=== PATIENT | female | born 1955 | race Caucasian/White ===

== ENCOUNTER 2022-06-15 11:03 | Outpatient (CLI) | payer MEDICARE, BC, SELFPAY ==
--- OUTSIDE RECORDS SUMMARY | 2022-06-15 11:05 | XMS_ITS | Encounter Summary ---
:1955 Author Organization [place] Address [address] [facility] [place] [address] Care Team Providers Name Role Phone Jennifer Reid NP Unavailable Jennifer Reid NP Primary Care Provider Encounter Details Date Type Department Care Team Description 02/16/2022 Travel Social History Tobacco Use Types Packs/Day Years Used Date Smoking Tobacco: Never Smokeless Tobacco: Never Alcohol Use Standard Drinks/Week Comments Yes 0 (1 standard drink = 0.6 oz pure alcoho l) Sex Assigned at Date Recorded Female 11/25/2020 4:39 PM CDT COVID-19 Exposure Response Date Recorded In the last 10 days, have you been in contact with No / Unsu re 02/16/2022 9:50 AM CDT someone who was confirmed or suspected to have Coronavirus/COVID-19? documented as of this encounter Plan of Treatment Not on filedocumented as of this encounter Visit Diagnoses Not on filedocumented in this encounter Care Teams Incoming Inspector Relationship Specialty Start Date End Date Jennifer Reid NP PCP - General 02/11/22 [address] [place] [address] Jennifer Reid NP Assigned PCP 02/18/21 [address] [place] [address] documented as of this encounter
--- OUTSIDE RECORDS SUMMARY | 2022-06-15 11:05 | XMS_ITS | Encounter Summary ---
:1955 Author Organization [place] Address [address] [facility] [place] [address] Care Team Providers Name Role Phone Jennifer Reid NP Unavailable Encounter Details Date Type Department Care Team Description [facility] Provider, Histor ical Social History Tobacco Use Types Packs/Day Years Used Date Smoking Tobacco: Never Smokeless Tobacco: Never Alcohol Use Standard Drinks/Week Comments Yes 0 (1 standard drink = 0.6 oz pure alcoho l) Sex Assigned at Date Recorded Female 11/25/2020 4:39 PM CDT documented as of this encounter Plan of Treatment Not on filedocumented as of this encounter Procedures Procedure Name Priority Date/Time Associated Diagnosis Comme nts MA SCREENING Routine 11/07/2009 12:00 AM Results for this BILATERAL GAS STATION CASHIER procedure are i n the results section. documented in this encounter Results MA Screening Bilateral (11/07/2009 12:00 AM GAS STATION CASHIER) Anatomical Region Laterality Modality Breast Bilateral Other Specimen (Source) Anatomical Location Collection Method / Collectio n Time Received Time / Laterality Volume Narrative 11/07/2009 12:00 AM GAS STATION CASHIER See Historical Hospital Medical Record f or documentation Procedure Note Provider, Historical - 03/25/2021Formatt ing of this note might be different from the original. See Historical Hospital Medical Record f or documentation Historical Provider IMG MAMMOGRAPHY ORDERABLES documented in this encounter Visit Diagnoses Not on filedocumented in this encounter Care Teams Sterilization Specialist Relationship Specialty Start Date End Date Jennifer Reid NP Assigned PCP 02/18/21 [address] [place] [address] documented as of this encounter
--- OUTSIDE RECORDS SUMMARY | 2022-06-15 11:05 | XMS_ITS | Encounter Summary ---
:1955 Author Organization [place] Address [address] [place] [address] Care Team Providers Name Role Phone Unavailable Primary Care Provider Unavailable Encounter Details Date Type Department Care Team Description 02/02/2021 Records - [facility] FERNIE CONVERSION Provider, Histor ical Social History Tobacco Use Types Packs/Day Years Used Date Smoking Tobacco: Never Assessed Sex Assigned at Date Recorded Female 11/25/2020 4:39 PM CDT documented as of this encounter Plan of Treatment Not on filedocumented as of this encounter Procedures Procedure Name Priority Date/Time Associated Comments Diagnosis US PELVIC Routine 03/13/2008 12:00 Results for this TRANSABDOMINAL AM CDT procedure are in the results section. US TRANSVAGINAL PELVIC Routine 03/13/2008 12:00 R esults for this NON-OB AM CDT procedure are i n the results section. documented in this encounter Results US Pelvis Complete without Transvaginal (03/13/2008 12:00 AM CDT) Anatomical Region Laterality Modality Abdomen/Pelvis Other Specimen (Source) Anatomical Location Collection Method / Collectio n Time Received Time / Laterality Volume Narrative 03/13/2008 12:00 AM CDT See Historical Hospital Medical Record f or documentation Procedure Note Provider, Historical - 02/02/2021Formatt ing of this note might be different from the original. See Historical Hospital Medical Record f or documentation Historical Provider IMG US ORDERABLES US Transvaginal Non OB (03/13/2008 12:00 AM CDT) Anatomical Region Laterality Modality Abdomen/Pelvis Other Specimen (Source) Anatomical Location Collection Method / Collectio n Time Received Time / Laterality Volume Narrative 03/13/2008 12:00 AM CDT See Historical Hospital Medical Record f or documentation Procedure Note Provider, Historical - 02/02/2021Formatt ing of this note might be different from the original. See Historical Hospital Medical Record f or documentation Historical Provider IMG US ORDERABLES documented in this encounter Visit Diagnoses Not on filedocumented in this encounter
--- OUTSIDE RECORDS SUMMARY | 2022-06-15 11:05 | XMS_ITS | Clinical Summary ---
:1955 Author Organization [place] Address [facility] [place] [address] Care Team Providers Name Role Phone Jennifer Reid NP Unavailable Jennifer Reid NP Primary Care Provider Allergies Active Allergy Reactions Severity Noted Date Comments Allergy Relief Itching 12/13/2020 Medications Medication Sig Dispensed Refills Start Date End Date Status multivitamin [MULTIVITAMIN 0 10/13/2014 Ac tive (MULTIVITAMIN) per (MULTIVITAMIN) tablet PER TABLET] 1 tablet daily. aspirin 81 MG EC tablet [ASPIRIN 81 MG EC 0 07/07/20 15 Active TABLET] Take 81 mg by mouth daily. alendronate (FOSAMAX) [ALENDRONATE 12 tablet 3 02/07/2020 Active 70 MG (FOSAMAX) 70 MG tabletIndications: TABLET] TAKE 1 Osteopenia with high TABLET BY MOUTH risk of fracture EVERY 7 DAYS. TAKE IN THE MORNING ON AN EMPTY STOMACH WITH A FULL GLASS OF WATER, 30 MINUTES BEFORE FOOD Active Problems Problem Noted Date Osteopenia with high risk of fracture 01/23/2021 Postmenopausal status 11/15/2018 Atypical melanocytic hyperplasia 07/07/2016 Vitamin D Deficiency Overview: Created by Conversion Replacement Utility updated for latest I MO load Essential Hypercholesterolemia Overview: Created by Conversion Allergic Rhinitis Overview: Created by Conversion Replacement Utility updated for latest I MO load Immunizations Name Administration Dates Next Due COVID-19,PF,Pfizer (12+ Yrs) 12/24/2020, 12/03/2020 DT (PEDS <7y) 02/28/1996 Flu, Unspecified 06/19/2020, 06/02/2016, 05/21/2010 HepA, Unspecified 02/21/2008 HepA-Adult 11/15/2018, 07/06/2016, 02/21/2008 HepB-Adult 11/15/2018 Influenza (IIV3) PF 07/07/2010 Influenza Vaccine, 6+MO IM (QUADRIVALENT 07/10/2019, 018 W/PRESERVATIVES) Pneumo Conj 13-V (2010&after) 07/06/2016 Td,adult,historic,unspecified 02/21/2008 Tdap (Adacel,Boostrix) 11/15/2018, 02/21/2008 Typhoid IM 11/15/2018 Zoster vaccine recombinant adjuvanted 01/23/2021, 11/15/2018 (SHINGRIX) Zoster vaccine, live 07/06/2016 Family History Medical History Relation Comments Asthma Father Prostate Cancer Father Coronary Artery Disease Maternal Grandfather Coronary Artery Disease Maternal Grandmother Arthritis Mother Diabetes Mother Coronary Artery Disease Paternal Grandfather Colon Cancer Paternal Grandmother Relation Status Comments Father Maternal Grandfather Maternal Grandmother Mother Alive Paternal Grandfather Paternal Grandmother Social History Tobacco Use Types Packs/Day Years Used Date Smoking Tobacco: Never Smokeless Tobacco: Never Alcohol Use Standard Drinks/Week Comments Yes 0 (1 standard drink = 0.6 oz pure alcoho l) Sex Assigned at Date Recorded Female 11/25/2020 4:39 PM CDT Last Filed Vital Signs Vital Sign Reading Time Taken Comments Blood Pressure 110/66 01/23/2021 11:11 AM CDT Pulse 64 01/23/2021 11:11 AM CDT Temperature 36.8 ??C (98.2 ??F) 01/23/2021 11:11 AM CDT Respiratory Rate 16 01/23/2021 11:11 AM CDT Oxygen Saturation 99% 01/23/2021 11:11 AM CDT Inhaled Oxygen Concentration - - Weight 63.7 kg (140 lb 7 oz) 01/23/2021 11:11 AM CDT Height 162.6 cm (5' 4) 01/23/2021 11:11 AM CDT Body Mass Index 24.11 01/23/2021 11:11 AM CDT Plan of Treatment Health Maintenance Due Date Last Done Comments ANNUAL REVIEW OF HM ORDERS 1955 CT COLONOGRAPHY 1955 FIT-DNA (Cologuard) 1955 FIT 1955 FLEX SIG 1955 HEPATITIS B IMMUNIZATION 12/13/2018 11/15/2018 (2 of 3 - 3-dose series) FALL RISK ASSESSMENT 2021 MEDICARE ANNUAL WELLNESS 2021 VISIT Pneumococcal Vaccine: 65+ 2021 07/06/2016 Years (2 - PPSV23 if available, else PCV20) PHQ-2 (once per calendar 09/05/2021 year) COVID-19 Vaccine (4 - 09/18/2021 07/24/2021, 12/24/2020, Booster for Pfizer series) 12/03/2020 DEXA 01/27/2022 01/27/2021, 11/21/2018, 11/21/2018 INFLUENZA VACCINE (#1) 2022 08/24/2021, 06/19/2020, 06/19/2020, Additional history exists MAMMO SCREENING 02/17/2024 02/16/2022, 01/16/2021, 01/16/2021, Additional history exists ADVANCE CARE PLANNING 01/23/2026 01/23/2021 LIPID 01/23/2026 01/23/2021, 11/15/2018, 07/26/2016, Additional history exists DTAP/TDAP/TD IMMUNIZATION 11/15/2028 11/15/2018, 02/21/2008 , (3 - Td or Tdap) 02/21/2008 COLONOSCOPY 02/04/2031 02/04/2021 COLORECTAL CANCER 02/04/2031 SCREENING HEPATITIS C SCREENING Completed 01/23/2021 PAP Discontinued 01/23/2021, 01/23/2021, 10/18/2014, Additional history exists ZOSTER IMMUNIZATION Completed 01/23/2021, 11/15/2018, 07/06/2016 IPV IMMUNIZATION Aged Out No longer eligi ble based on patient 's age to complete this topic MENINGITIS IMMUNIZATION Aged Out No longe r eligible based on patient 's age to complete this topic Insurance Payer Benefit Plan / Subscriber ID Effective Phone Address T ype Group Dates BC[place] [id number] 2021-Pres [phone] [address] [id number] Indemnity ent [address] [place] [address] MEDICARE MEDICARE [id number] 2021-Prese [phone] ATTN [place] Medicare nt 40 [address] [place] [address] [phone] (Work) Care Teams Licensed Occupational Therapy Assistant Relationship Specialty Start Date End Date Jennifer Reid NP PCP - General 02/11/[address] [facility] [address] [place], [place] [id number] Jennifer Reid NP Assigned PCP 02/18/21 [address] [place] [address]
--- OUTSIDE RECORDS SUMMARY | 2022-06-15 11:05 | XMS_ITS | Encounter Summary ---
:1955 Author Organization [place] Address [address] [place] [address] Care Team Providers Name Role Phone Unavailable Primary Care Provider Unavailable Encounter Details Date Type Department Care Team Description 02/01/2021 Records - [facility] SKY CONVERSION Provider, Histor ical Social History Tobacco Use Types Packs/Day Years Used Date Smoking Tobacco: Never Assessed Sex Assigned at Date Recorded Female 11/25/2020 4:39 PM CDT documented as of this encounter Plan of Treatment Not on filedocumented as of this encounter Procedures Procedure Name Priority Date/Time Associated Diagnosis Comme nts XR CHEST 2 VIEWS Routine 10/02/2006 12:00 AM Resu lts for this DIRECTOR SPORTS procedure are i n the results section. documented in this encounter Results XR Chest 2 Views (10/02/2006 12:00 AM DIRECTOR SPORTS) Anatomical Region Laterality Modality Chest Digital Radiography Specimen (Source) Anatomical Location Collection Method / Collectio n Time Received Time / Laterality Volume Narrative 10/02/2006 12:00 AM DIRECTOR SPORTS See Historical Hospital Medical Record f or documentation Procedure Note Provider, Historical - 02/01/2021Formatt ing of this note might be different from the original. See Historical Hospital Medical Record f or documentation Historical Provider IMG DIAGNOSTIC IMAGING ORDER DARRICK documented in this encounter Visit Diagnoses Not on filedocumented in this encounter
--- OUTSIDE RECORDS SUMMARY | 2022-06-15 11:05 | XMS_ITS | Encounter Summary ---
:1955 Author Organization [place] Address [address] [place] [address] Care Team Providers Name Role Phone Unavailable Primary Care Provider Unavailable Encounter Details Date Type Department Care Team Description 02/01/2021 Records - [facility] [place] HE CONVERSION Provider, Histor ical Social History Tobacco Use Types Packs/Day Years Used Date Smoking Tobacco: Never Assessed Sex Assigned at Date Recorded Female 11/25/2020 4:39 PM CDT documented as of this encounter Plan of Treatment Not on filedocumented as of this encounter Procedures Procedure Name Priority Date/Time Associated Diagnosis Comme nts MAMMO MISC(FCIS) Routine 10/04/2006 12:00 AM Resu lts for this ORDER PRODUCTION PACKAGER procedure are i n the results section. documented in this encounter Results Mammo Misc Order (10/04/2006 12:00 AM PRODUCTION PACKAGER) Anatomical Region Laterality Modality Other Specimen (Source) Anatomical Location Collection Method / Collectio n Time Received Time / Laterality Volume Narrative 10/04/2006 12:00 AM PRODUCTION PACKAGER See Historical Hospital Medical Record f or documentation Procedure Note Provider, Historical - 02/01/2021Formatt ing of this note might be different from the original. See Historical Hospital Medical Record f or documentation Historical Provider IMG MAMMOGRAPHY ORDERABLES documented in this encounter Visit Diagnoses Not on filedocumented in this encounter
--- OUTSIDE RECORDS SUMMARY | 2022-06-15 11:05 | XMS_ITS | Encounter Summary ---
:1955 Author Organization [place] Address [address] [facility] [place] [address] Care Team Providers Name Role Phone Jennifer Reid NP Unavailable Encounter Details Date Type Department Care Team Description [facility] CONVERSION Provider, Histor ical [...] Associated Diagnosis Comme nts MA SCREENING Routine 10/24/2007 12:00 AM Results for this BILATERAL FILTER CLOTH MAKER procedure are i n the results section. documented in this encounter Results MA Screening Bilateral (10/24/2007 12:00 AM FILTER CLOTH MAKER) Anatomical Region Laterality Modality Breast Bilateral Other Specimen (Source) Anatomical Location Collection Method / Collectio n Time Received Time / Laterality Volume Narrative 10/24/2007 12:00 AM FILTER CLOTH MAKER See Historical Hospital Medical Record f or documentation Procedure Note Provider, Historical - 03/25/2021Formatt ing of this note might be different from the original. See Historical Hospital Medical Record f or documentation Historical Provider IMG MAMMOGRAPHY ORDERABLES documented in this encounter Visit Diagnoses Not on filedocumented in this encounter Care Teams Cell Plasterer Relationship Specialty Start Date End Date Jennifer Reid NP Assigned PCP 02/18/21 [address] [place] [address] documented as of this encounter
--- OUTSIDE RECORDS SUMMARY | 2022-06-15 11:05 | XMS_ITS | Encounter Summary ---
:1955 Author Organization [place] Address [address] [facility] [place] [address] Care Team Providers Name Role Phone Jennifer Reid NP Unavailable Encounter Details Date Type Department Care Team Description [facility] CONVERSION Provider, Histor ical Social History [...] Associated Diagnosis Comme nts MA SCREENING Routine 12/11/2010 12:00 AM Results for this BILATERAL CDT procedure are i n the results section. documented in this encounter Results MA Screening Bilateral (12/11/2010 12:00 AM CDT) Anatomical Region Laterality Modality Breast Bilateral Other Specimen (Source) Anatomical Location Collection Method / Collectio n Time Received Time / Laterality Volume Narrative 12/11/2010 12:00 AM CDT See Historical Hospital Medical Record f or documentation Procedure Note Provider, Historical - 03/25/2021Formatt ing of this note might be different from the original. See Historical Hospital Medical Record f or documentation Historical Provider IMG MAMMOGRAPHY ORDERABLES documented in this encounter Visit Diagnoses Not on filedocumented in this encounter Care Teams Pie Filler Relationship Specialty Start Date End Date Jennifer Reid NP Assigned PCP 02/18/21 [address] [place] [address] documented as of this encounter
--- OUTSIDE RECORDS SUMMARY | 2022-06-15 11:05 | XMS_ITS | Encounter Summary ---
:1955 Author Organization [place] Address [address] [facility] [place] [address] Care Team Providers Name Role Phone Jennifer Reid NP Unavailable Encounter Details Date Type Department Care Team Description [facility] Provider, Histor ical Social [...] Associated Diagnosis Comme nts MA SCREENING Routine 11/06/2008 12:00 AM Results for this BILATERAL ASSEMBLER FISHING FLOATS procedure are i n the results section. documented in this encounter Results MA Screening Bilateral (11/06/2008 12:00 AM ASSEMBLER FISHING FLOATS) Anatomical Region Laterality Modality Breast Bilateral Other Specimen (Source) Anatomical Location Collection Method / Collectio n Time Received Time / Laterality Volume Narrative 11/06/2008 12:00 AM ASSEMBLER FISHING FLOATS See Historical Hospital Medical Record f or documentation Procedure Note Provider, Historical - 03/17/2021Formatt ing of this note might be different from the original. See Historical Hospital Medical Record f or documentation Historical Provider IMG MAMMOGRAPHY ORDERABLES documented in this encounter Visit Diagnoses Not on filedocumented in this encounter Care Teams Human Services Care Specialist Relationship Specialty Start Date End Date Jennifer Reid NP Assigned PCP 02/18/21 [address] [place] [address] documented as of this encounter
--- OUTSIDE RECORDS SUMMARY | 2022-06-15 11:05 | XMS_ITS | Encounter Summary ---
:1955 Author Organization [place] Address [address] [place] [address] Care Team Providers Name Role Phone Jennifer Reid NP Unavailable Jennifer Reid NP Primary Care Provider Reason for Referral Diagnostic Imaging Mammo (Routine) - Closed Specialty Diagnoses / Procedures Referred By Contact Refer red To Contact Radiology. Diagnoses Visit for screening mammogram Jennifer Reid NP [facility] Breast Center Procedures MA Screening Digital Bilateral [address] [facility] [address] [address] Fax: Referral ID Status Reason Start Date Expiration Date Visits Requ ested Visits Authorized [id number] Closed 01/04/2022 09/04/2022 1 1 Reason for Visit Diagnostic Imaging Mammo (Routine) - Closed Specialty Diagnoses / Procedures Referred By Contact Refer red To Contact Radiology. Diagnoses Visit for screening mammogram Jennifer Reid NP [facility] Breast Center Procedures MA Screening Digital Bilateral [address] [employer] [facility], [address] [place] [address] [place] [address] Fax: Referral ID Status Reason Start Date Expiration Date Visits Requ ested Visits Authorized [id number] Closed 01/04/2022 09/04/2022 1 1 Encounter Details Date Type Department Care Team Description 02/16/2022 [facility] Breast DANIT[facility] mammogram Center [address] [facility], [address], [address] [place] [address] [place], [place] [phone] (Work) [phone] Social History Tobacco Use Types Packs/Day Years [...] have Coronavirus/COVID-19? documented as of this encounter Medications at Time of Discharge Medication Sig Dispensed Refills Start Date End Date alendronate (FOSAMAX) 70 [ALENDRONATE 12 tablet 3 0 MG tabletIndications: (FOSAMAX) 70 MG Osteopenia with high risk TABLET] TAKE 1 TABLET of fracture BY MOUTH EVERY 7 DAYS. TAKE IN THE MORNING ON AN EMPTY STOMACH WITH A FULL GLASS OF WATER, 30 MINUTES BEFORE FOOD aspirin 81 MG EC tablet [ASPIRIN 81 MG EC 0 07/07 TABLET] Take 81 mg by mouth daily. multivitamin [MULTIVITAMIN 0 10/13/2014 (MULTIVITAMIN) per tablet (MULTIVITAMIN) PER TABLET] 1 tablet daily. documented as of this encounter Plan of Treatment Not on filedocumented as of this encounter Procedures Procedure Name Priority Date/Time Associated Diagnosis Comme nts MA SCREENING Routine 02/16/2022 3:22 PM Visit for screening Re sults for this DIGITAL BILATERAL CDT mammogram procedure are in the results section. documented in this encounter Results MA Screening Digital Bilateral (02/16/2022 3:22 PM CDT) Anatomical Region Laterality Modality Breast Bilateral Mammography Specimen (Source) Anatomical Location Collection Method / Collectio n Time Received Time / Laterality Volume Narrative 02/17/2022 11:43 AM CDT BILATERAL FULL FIELD DIGITAL SCREENING MAMMOGRAM Performed on: 02/16/22 Compared to: 01/16/2021, 11/19/2019, 01/2019, 08/26/2017, and 06/03/2016 Technique: This study was evaluated with the assistance of Computer-Aided Detection. Findings: The breasts have scattered are as of fibroglandular density. ?? There is no radiographic evidence of mal ignancy. IMPRESSION: ACR BI-RADS Category 1: Nega tive RECOMMENDED FOLLOW-UP: Annual routine sc reening mammogram The results and recommendations of this examination will be communicated to the patient. Jennifer Reid NP IMG MAMMOGRAPHY ORDERABLES documented in this encounter Visit Diagnoses Diagnosis Visit for screening mammogram Other screening mammogram documented in this encounter Care Teams Registrar Museum Relationship Specialty Start Date End Date Jennifer Reid NP PCP - General 02/11/22 [address] [facility] [address] [place], [place] [id number] Jennifer Reid NP Assigned PCP 02/18/21 [address] [place] [address] documented as of this encounter
--- OUTSIDE RECORDS SUMMARY | 2022-06-15 11:06 | XMS_ITS | Encounter Summary ---
:1955 Author Organization [place] Address [address] [place] [address] Care Team Providers Name Role Phone Unavailable Primary Care Provider Unavailable Reason for Visit Reason Comments Physical fasting, pap Encounter Details Date Type Department Care Team Description 01/23/2021 Office Visit - [facility], Annual p hysical exam; [facility] Devan Rodriguez NP Postmenopausal status; [facility] ASHLEE Osteopenia with high risk of fracture; [address] Colon cancer screening; [address] [place], [place] Need for vaccination; Nasim Prof [id number] ACP (advance care planning) [facility] [phone] [place], [place] (Work) [phone] Social History Tobacco Use Types Packs/Day Years Used Date Smoking Tobacco: Never Assessed Sex Assigned at Date Recorded Female 11/25/2020 4:39 PM CDT documented as of this encounter Last Filed Vital Signs Vital Sign Reading [...] Mass Index 24.11 01/23/2021 11:11 AM CDT documented in this encounter Progress Notes Jennifer Reid, DANITZA - 01/23/2021 11:00 AM CDT Assessment: Healthy female exam. Plan: 1. Annual physical exam HIV Antigen/Antibody Screening [facility] Hepatitis C Antibody (Anti-HCV) Basic Metabolic Panel Hemoglobin Vitamin D, Total (25-Hydroxy) Lipid [facility] Gynecologic Cytology (PAP Smear) 2. Postmenopausal status DXA Bone Density Scan 3. Osteopenia with high risk of fracture DXA Bone Density Scan 4. Colon cancer screening 5. Need for vaccination Varicella Zoster, Recombinant Vaccine IM 6. ACP (advance care planning) Await pap smear results. Blood tests: see above. Breast self exam technique reviewed and patient encouraged to perform self-exam monthly. Discussed healthy lifestyle modifications. Follow up: Return in about 1 year (around 01/23/2022) for Welcome to Medicare physical. She will call and request her colonoscopy results from the facility that performed her screening in 2018. Family history is positive for colon cancer in her mother. Patient was given the fax number to my [employer] desk top so she is able to have the records sent. Shingrix #2 administered She is fully COVID vaccinated, copy of card made for her records She will be retiring this Fall, next year will be her Welcome to Medicare physical 34 minutes spent with chart review, review results, assessment, documentation Subjective: Cindy Duarte is a 65 y.o. female who presents for an annual exam. The patient is sexually active. The patient participates in regular exercise: yes. The patient reports that there is not domestic violence in her life. Medical, family and surgical history reviewed. Patient is . She works full-time as the [employer]. She is planning on retiring this coming fall. She drinks 1-2 alcoholic beverages per week, she is a non-smoker and denies illicit drug use. Diet is balanced with adequate amount of fruits and vegetables. Current BMI 24.1. She does exercise 5 days/week walking 4 miles per day. She is postmenopausal since 2010. She denies any abnormal vaginal bleeding or spotting today. She is due for her Pap smear today. She is fully Covid vaccinated. She does have healthcare directive on file at home along with her trust, her children are aware of where this is located. She is due for repeat bone scan. She was given a prescription for Fosamax back in 2019 when she was found tohave a high fracture osteoporotic risk. She has not taken the medication for well over 1 year now due to experiencing some upper epigastric discomfort when taking the medication. She continues to take vitamin D supplements but is not taking calcium. She does not perform any weight bearing exercises. She has had no spontaneous fractures since her initial bone scan in 2019. She did have a colonoscopy completed outside the [facility] system back in 2018. She has not had the records sent over to us so I am not able to review those results. She does report a normal colon results but due to her mother's history of colon cancer which she from, they did recommend screening her every 5 years. Mamm ogram was recently completed and was negative for malignancy or any other suspicious findings. She is seeing her plow shaker yearly for skin exams, she recently had a mole on the right side of her nose frozen off that looked abnormal to her plow shaker. Healthy Habits: Regular Exercise: Yes Sunscreen Use: Yes Healthy Diet: Yes Dental Visits Regularly: Yes Seat Belt: Yes Sexually active: Yes Self Breast Exam Monthly:Yes Hemoccults: No Flex Sig: No Colonoscopy: Yes Lipid Profile: Yes Glucose Screen: Yes Prevention of Osteoporosis: Yes Last Dexa: Yes Guns at Home: No Immunization History Administered Date(s) Administered ??? COVID-19,PF,Pfizer 12/03/2020, 12/24/2020 ??? DT (pediatric) 02/28/1996 ? ? Hep A, Adult IM (19yr & older) 02/21/2008, 07/06/2016, 11/15/2018 ??? Hep A, historic 02/21/2008 ??? Hep B, Adult 11/15/2018 ??? Influenza, inj, historic,unspecified 05/21/2010, 06/02/2016, 06/19/2020 ??? Influenza,seasonal, Inj IIV3 07/07/2010 ? ? Influenza,seasonal,quad inj =/> 6months 07/04/2018, 07/10/2019 ? ? Pneumo Conj 13-V (2010&after) 07/06/2016 ??? Td,adult,historic,unspecified 02/21/2008 ??? Tdap 02/21/2008, 11/15/2018 ??? Typhoid, Inj, Inactive 11/15/2018 ??? ZOSTER, LIVE 07/06/2016 ??? ZOSTER, RECOMBINANT, IM 11/15/2018 Immunization status: due today. No exam data present Gynecologic History Patient's last menstrual period was 08/26/2011. Contraception: post menopausal status Last Pap: 2014. Results were: normal Last mammogram: 01/2021. Results were: normal OB History Para Term AB Living 4 4 4 SAB TAB Ectopic Multiple Live Births # Outcome Date GA Lbr Feliciano/2nd Weight Sex Delivery Anes PTL Lv 4 Term F Comments: Mira 3 Term F Comments: Maria Luisa 2 Term M Comments: Dexter 1 Term F Comments: Es Current Outpatient Medications Medication Sig Dispense Refill ??? aspirin 81 MG EC tablet Take 81 mg by mouth daily. ??? multivitamin (MULTIVITAMIN) per tablet 1 tablet daily. ??? alendronate (FOSAMAX) 70 MG tablet TAKE 1 TABLET BY MOUTH EVERY 7 DAYS. TAKE IN THE MORNING ON AN EMPTY STOMACH WITH A FULL GLASS OF WATER, 30 MINUTES BEFORE FOOD 12 tablet 3 No current facility-administered medications for this visit. Past Medical History: Diagnosis Date ??? Allergic rhinitis, cause unspecified ??? Pure hypercholesterolemia ??? Vitamin D deficiency Past Surgical History: Procedure Laterality Date ??? x4 ??? TUBAL LIGATION Hay fever and allergy relief Family History Problem Relation Age of Onset ??? Asthma Father ??? Prostate cancer Father ??? Colon cancer Paternal Grandmother ??? Coronary artery disease Maternal Grandfather ??? Coronary artery disease Maternal Grandmother ??? Coronary artery disease Paternal Grandfather ??? Arthritis Mother ??? Diabetes Mother Social History Socioeconomic History ??? Marital status: Spouse name: ??? Number of children: 4 ??? Years of education: 16 ??? Highest education level: Not on file Occupational History ??? Occupation: Finance Manage Operations Social Needs ??? Financial resource strain: Not on file ??? Food insecurity Worry: Not on file Inability: Not on file ??? Transportation needs Medical: Not on file Non-medical: Not on file Tobacco Use ??? Smoking status: Never Smoker ??? Smokeless tobacco: Never Used Substance and Sexual Activity ??? Alcohol use: Yes Drinks per session: 1 or 2 ??? Drug use: No ??? Sexual activity: Yes Partners: Male control/protection: None Lifestyle ??? Physical activity Days per week: Not on file Minutes per session: Not on file ??? Stress: Not on file Relationships ??? Social connections Talks on phone: Not on file Gets together: Not on file Attends yazdanism service: Not on file Active member of club or organization: Not on file Attends meetings of clubs or organizations: Not on file Relationship status: Not on file ??? Intimate partner violence Fear of current or ex partner: Not on file Emotionally abused: Not on file Physically abused: Not on file Forced sexual activity: Not on file Other Topics Concern ??? Not on file Social History Narrative Lives with Review of Systems Review of Systems Objective: Vitals: 01/23/21 1111 BP: 110/66 Pulse: 64 Resp: 16 Temp: 98.2 ??F (36.8 ??C) SpO2: 99% Weight: 140 lb 7 oz (63.7 kg) Height: 5' 4 (1.626 m) Body mass index is 24.11 kg/m??. Physical Physical Exam Review of Systems Denies fever, chills, visual changes, fatigue, myalgias, nasal congestion, rhinorrhea, ear pain, or discharge, sore throat, swollen glands, breast mass, nipple discharge, breast changes, cough, shortness of breath, chest pain, weight change, change in bowel habits, melena, rectal bleeding, dysuria, frequency, urgency, hematuria, polyuria, polydipsia, polyphagia, joint pain or swelling or erythema, edema, rash, weakness, paresthesias, vaginal discharge or bleeding or mood changes. Objective: BP 110/66 Pulse 64 Temp 98.2 ??F (36.8 ??C) Resp 16 Ht 5' 4 (1.626 m) Wt 140 lb 7 oz (63.7 kg) LMP 08/26/2011 SpO2 99% No BMI 24.11 kg/m?? Physical Exam: General Appearance: Alert, cooperative, no distress, appears stated age Head: Normocephalic, without obvious abnormality, atraumatic Eyes: PERRL, conjunctiva/corneas clear, EOM's intact Ears: Normal TM's and external ear canals, both ears Nose: Nares normal, septum midline,mucosa normal, no drainage Throat: Lips, mucosa, and tongue normal; teeth and gums normal Neck: Supple, symmetrical, trachea midline, no adenopathy; thyroid: not enlarged, symmetric, no tenderness/mass/nodules; no carotid bruit or JVD Back: Symmetric, no curvature, ROM normal, no CVA tenderness Lungs: Clear to auscultation bilaterally, respirations unlabored Breasts: No breast masses, tenderness, asymmetry, or nipple discharge. Breast exam carefully reviewed with patient. Heart: Regular rate and rhythm, S1 and S2 normal, no murmur, rub, or gallop Abdomen: Soft, non-tender, bowel sounds active all four quadrants, no masses, no organomegaly Pelvic:Normally developed genitalia with no external lesions or eruptions. Vagina and cervix show nolesions, inflammation, discharge or tenderness. No cystocele, No rectocele. Uterus not enlarged. No adnexal mass or tenderness. Pap smear is done. Extremities: Extremities normal, atraumatic, no cyanosis or edema Skin: Skin color, texture, turgor normal, no rashes or lesions Lymph nodes: Cervical, supraclavicular, and axillary nodes normal Neurologic: Normal documented in this encounter Plan of Treatment Not on filedocumented as of this encounter Procedures Procedure Name Priority Date/Time Associated Comments Diagnosis LAB RESULT - HIM SCAN 01/29/2021 1:28 Res ults for this PM CDT procedure are i n the results section. GYNECOLOGIC CYTOLOGY Routine 01/23/2021 12:46 Res ults for this PM CDT procedure are i n the results section. HPV HIGH RISK TYPES DNA Routine 01/23/2021 12:46 Results for this CERVICAL PM CDT procedure are i n the results section. HIV ANTIGEN ANTIBODY Routine 01/23/2021 12:00 Res ults for this COMBO PM CDT procedure are i n the results section. 1,25 DIHYDROXYVITAMIN D Routine 01/23/2021 12:00 Results for this PM CDT procedure are i n the results section. VITAMIN D DEFICIENCY Routine 01/23/2021 12:00 Res ults for this SCREENING PM CDT procedure are i n the results section. LIPID PROFILE Routine 01/23/2021 12:00 Results fo r this PM CDT procedure are i n the results section. HEPATITIS C ANTIBODY Routine 01/23/2021 12:00 Res ults for this PM CDT procedure are i n the results section. HEMOGLOBIN Routine 01/23/2021 12:00 Results for this PM CDT procedure are i n the results section. BASIC METABOLIC PANEL Routine 01/23/2021 12:00 Re sults for this PM CDT procedure are i n the results section. documented in this encounter Results LAB RESULT - HIM SCAN (01/29/2021 1:28 PM CDT) Specimen (Source) Anatomical Location Collection Method / Collectio n Time Received Time / Laterality Volume Narrative This result has an attachment that is no t available. Historical Provider NON-BEAKER LAB TESTING Gynecologic Cytology (PAP Smear) (01/23/2021 12:46 PM CDT) Component Value Ref Range Test Analysis Performed Pathologis t Method Time At Signature Case Report Gynecologic Cytology Report ? Case: [id number] ? Authorizing Provider: ??Jennifer Dobbs NP ?Collected: ? 01/23/2021 1246 ? 1 1:28 PM Ordering Location: ? [facility] ?? Received: ?01/23/2021 1246 ? CDT ? Devan Monsivais ? First Screen: ? Elyse Alvarez CT ? (ASCP) ? Specimen: ?SUREPATH PAP, DIAGNOSTIC, Endocervical/cervical ? Interpretation Negative for squamous intraepithelial le eugene or malignancy Negative for at ??1:28 PM squamous 1 1:28 PM intraepithelial CDT lesion or malignancy. Result Flag Normal Normal 1 1:28 PM CDT Specimen Satisfactory for Adequacy evaluation, 1 1:28 PM endocerv/transfo CDT rmation zone component absent, atrophy Reflex Testing Yes regardless of result 1 1:28 PM CDT High Risk? No 1 1:28 PM CDT LMP/Menopause 2010 Date 1 1:28 PM CDT Abnormal No Bleeding 1 1:28 PM CDT Patient Status postmenopausal 1 1:28 PM CDT None Control/Hormone 1 1:28 PM s CDT Previous Normal 2014 1 1:28 PM CDT Previous no Abnormal? 1 1:28 PM CDT Cervical normal Appearance 1 1:28 PM CDT Specimen Anatomical Collection Method Collection Time Receive d Time (Source) Location / / Volume Laterality Specimen from CERVIX UTERI 01/23/2021 12:46 01/26/2021 6:43 genital system STRUCTURE / PM CDT AM CDT (specimen) Unknown Jennifer CROCKETT HPV High Risk Types DNA Cervical (01/23/2021 12:46 PM CDT) Analysis Performed At Patho logist Time Signature HPV Source [facility] 01/26/2021 12:27 PM CDT HPV16 DNA Negative NEG 01/26/2021 12:27 PM CDT HPV18 DNA Negative NEG 01/26/2021 12:27 PM CDT Other HR HPV Negative NEG 01/26/2021 12:27 PM CDT FINAL SEE NOTES 01/26/2021 DIAGNOSIS 12:27 PM CDT Comment: This patient's sample is negative for HP V DNA. This test was developed and its performa nce characteristics determined by the [facility]. It has not been cleared or approved by the FDA. The laboratory is regulated under CLIA as qualified to perform high-comple xity testing. This test is used for clinical purposes. It should not be rega rded as investigational or for research. (Note) METHODOLOGY: ??The [facility] syst em uses automated extraction, simultaneous amplification of HPV (L1 re gion) and beta-globin, followed by ??real time detection of flu orescent labeled HPV and beta globin using specific oligonucleotide pr obes . The test specifically identifies types HPV 16 DNA and HPV 18 D NA while concurrently detecting the rest of the high risk type s (31, 33, 35, 39, 45, 51, 52, 56, 58, 59, 66 or 68). COMMENTS: ??This test is not intended fo r use as a screening device for women under age 30 with normal cervi sandra cytology. ??Results should be correlated with cytologic and histolo gic findings. Close clinical followup is recommended. Specimen Description Cervical Cells 01/26/2021 12: 27 PM CDT Comment: Performed and/or entered by: [facility] [address] [place] [address] Specimen Anatomical Collection Method Collection Time Receive d Time (Source) Location / / Volume Laterality Specimen from 01/23/2021 12:46 01/26/2021 5:25 genital system PM CDT PM CDT (specimen) Jennifer Reid NP LAB - BLOOD ORDERABLES Vitamin D Deficiency (01/23/2021 12:00 PM CDT) athologist Signature Vitamin D, 41.9 30.0 - 80.0 01/26/2021 Total ng/mL 9:26 AM CDT (25-Hydroxy) Specimen Anatomical Collection Method / Collection Time Recei jake Time (Source) Location / Volume Laterality Blood specimen Venipuncture / 01/23/2021 12:00 021 5:36 (specimen) Unknown PM CDT PM CDT Narrative 01/26/2021 9:26 AM CDT Deficiency <10.0 ng/mL Insufficiency 10.0-29.9 ng/mL Sufficiency 30.0-80.0 ng/mL Toxicity (possible) >100.0 ng/mL Jennifer Reid NP LAB - BLOOD ORDERABLES Hepatitis C antibody (01/23/2021 12:00 PM CDT) athologist Signature Hepatitis C Negative Negative 01/26/2021 Antibody 8:48 AM CDT Specimen Anatomical Collection Method / Collection Time Recei jake Time (Source) Location / Volume Laterality Blood specimen Venipuncture / 01/23/2021 12:00 021 5:36 (specimen) Unknown PM CDT PM CDT Jennifer Reid NP LAB - BLOOD ORDERABLES HIV Antigen Antibody Combo (01/23/2021 12:00 PM CDT) athologist Signature HIV Antigen Negative Negative 01/23/2021 Antibody Combo 6:33 PM CDT Specimen Anatomical Collection Method / Collection Time Recei jake Time (Source) Location / Volume Laterality Blood specimen Venipuncture / 01/23/2021 12:00 021 5:36 (specimen) Unknown PM CDT PM CDT Narrative 01/23/2021 6:33 PM CDT Method is Sandoval HIV Ag/Ab for the detec tion of HIV p24 antigen, HIV-1 antibodies and HIV-2 antibodies. Jennifer Reid NP LAB - BLOOD ORDERABLES (ABNORMAL) Lipid Profile (01/23/2021 12:00 PM CDT) Patholo gist Method Time Signature Cholesterol 237 (H) <=199 01/23/2021 mg/dL 6:19 PM CDT Triglycerides 103 <=149 01/23/2021 mg/dL 6:19 PM CDT Direct Measure HDL 66 >=50 01/23/2021 mg/dL 6:19 PM CDT LDL Cholesterol 150 (H) <=129 01/23/2021 Calculated mg/dL 6:19 PM CDT Patient Fasting > Yes 01/23/2021 8hrs? 6:19 PM CDT Specimen Anatomical Collection Method / Collection Time Recei jake Time (Source) Location / Volume Laterality Blood specimen Venipuncture / 01/23/2021 12:00 021 5:36 (specimen) Unknown PM CDT PM CDT Jennifer Reid NP LAB - BLOOD ORDERABLES 1,25 Dihydroxyvitamin D (01/23/2021 12:00 PM CDT) athologist Signature Vitamin D, 41.9 30.0 - 01/26/2021 [facility] Total 80.0 ng/mL 9:26 AM CDT [facility] (25-Hydroxy) [facility] Specimen Anatomical Collection Method / Collection Time Recei jake Time (Source) Location / Volume Laterality Blood specimen Venipuncture / 01/23/2021 12:00 021 5:36 (specimen) Unknown PM CDT PM CDT Narrative [facility] - 01/26/2021 9:26 AM CDT Deficiency <10.0 ng/mL Insufficiency 10.0-29.9 ng/mL Sufficiency 30.0-80.0 ng/mL Toxicity (possible) >100.0 ng/mL Jennifer Reid NP LAB - BLOOD ORDERABLES Performing Organization Address City/State/ZIP Code Phon e Number [place] [id number] [place] [address] LABORATORY O LABORATORY [place], [place] [id number] [place] [address] Hemoglobin (01/23/2021 12:00 PM CDT) P athologist Signature Hemoglobin 14.1 12.0 - 16.0 01/23/2021 g/dL 12:28 PM CDT Specimen Anatomical Collection Method / Collection Time Recei jake Time (Source) Location / Volume Laterality Blood specimen Venipuncture / 01/23/2021 12:00 021 (specimen) Unknown PM CDT 12:00 PM CDT Jennifer Reid POLITICAL ADVISOR LAB - BLOOD ORDERABLES Basic metabolic panel (01/23/2021 12:00 PM CDT) athologist Signature Sodium 141 136 - 145 01/23/2021 mmol/L 6:19 PM CDT Potassium 4.3 3.5 - 5.0 01/23/2021 mmol/L 6:19 PM CDT Chloride 103 98 - 107 01/23/2021 mmol/L 6:19 PM CDT Carbon Dioxide 29 22 - 31 01/23/2021 (CO2) mmol/L 6:19 PM CDT Anion Gap 9 5 - 18 01/23/2021 mmol/L 6:19 PM CDT Glucose 87 70 - 125 01/23/2021 mg/dL 6:19 PM CDT Calcium 8.8 8.5 - 10.5 01/23/2021 mg/dL 6:19 PM CDT Urea Nitrogen 12 8 - 22 01/23/2021 mg/dL 6:19 PM CDT Creatinine 0.73 0.60 - 01/23/2021 1.10 mg/dL 6:19 PM CDT GFR Estimate If >60 >60 01/23/2021 Black mL/min/1.7 6:19 PM CDT 3m2 GFR Estimate >60 >60 01/23/2021 mL/min/1.7 6:19 PM CDT 3m2 Specimen Anatomical Collection Method / Collection Time Recei jake Time (Source) Location / Volume Laterality Blood specimen Venipuncture / 01/23/2021 12:00 021 5:36 (specimen) Unknown PM CDT PM CDT Narrative 01/23/2021 6:19 PM CDT Fasting Glucose reference range is 70-99 mg/dL per [place] [employer] (ADA) hannah louise. Jennifer Reid NP LAB - BLOOD ORDERABLES documented in this encounter Visit Diagnoses Diagnosis Annual physical exam Routine general medical examination at a health care facility Postmenopausal status Asymptomatic postmenopausal status (age- related) (natural) Osteopenia with high risk of fracture Colon cancer screening Special screening for malignant neoplasm s, colon Need for vaccination Need for prophylactic vaccination and in oculation against unspecified single disease ACP (advance care planning) Other specified counseling documented in this encounter
--- OUTSIDE RECORDS SUMMARY | 2022-06-15 11:06 | XMS_ITS | Encounter Summary ---
:1955 Author Organization [place] Address [address] [place] [address] Care Team Providers Name Role Phone Jagdeep Eng Roxana Primary Care Provider Encounter Details Date Type Department Care Team Description [facility] Leoncio Rubalcava MD mammogram Center [address] [place] [id number] [facility] [phone] [place] [address] Social History Tobacco Use Types Packs/Day Years Used Date Smoking Tobacco: Never Assessed Sex Assigned at Date Recorded Female 11/25/2020 4:39 PM CDT documented as of this encounter Medications at Time of Discharge Medication Sig Dispensed Refills Start Date End Date aspirin 81 MG EC tablet [ASPIRIN 81 MG EC 0 07/07 TABLET] Take 81 mg by mouth daily. multivitamin (MULTIVITAMIN) [MULTIVITAMIN 0 10/13 per tablet (MULTIVITAMIN) PER TABLET] 1 tablet daily. documented as of this encounter Plan of Treatment Not on filedocumented as of this encounter Procedures Procedure Name Priority Date/Time Associated Diagnosis Comme nts MA SCREENING Routine 08/26/2017 1:11 PM Visit for screening Re sults for this DIGITAL BILATERAL DRIVER mammogram procedure are in the results section. documented in this encounter Results MA Screening Digital Bilateral (08/26/2017 1:11 PM DRIVER) Anatomical Region Laterality Modality Breast Bilateral Other Specimen (Source) Anatomical Location Collection Method / Collectio n Time Received Time / Laterality Volume Narrative 08/26/2017 2:39 PM DRIVER BILATERAL FULL FIELD DIGITAL SCREENING MAMMOGRAM Performed on: 08/26/17. Compared to: 06/03/2016 Mammo Screening Bilateral, and 09/19/2014 Mammo Screening Bilateral Findings: The breasts have scattered are as of fibroglandular densities. There is no radiographic evidence of malignancy. This study was evaluated with the assistance of Computer-Aided Detection. Continue routine screening mammogram as recommended. ACR BI-RADS Category 1: Negative Procedure Note Dany Arevalo MD - 02/10/2021Formattin g of this note might be different from the original. BILATERAL FULL FIELD DIGITAL SCREENING M AMMOGRAM Performed on: 08/26/17. Compared to: 06/03/2016 Mammo Screening Bilateral, and 09/19/2014 Mammo Screening Bilateral Findings: The breasts have scattered are as of fibroglandular densities. There is no radiographic evidence of malignancy. This study was evaluated with the assistance of Computer-Aided Detection. Continue routine screening mammogram as recommended. ACR BI-RADS Category 1: Negative Gini nSow MD IMG MAMMOGRAPHY ORDERABLES documented in this encounter Visit Diagnoses Diagnosis Visit for screening mammogram Other screening mammogram documented in this encounter Care Teams Instructional Technology Facilitator Relationship Specialty Start Date End Date Jagdeep Eng PCP - General 02/21/08 09/26/[address] [place] [id number] documented as of this encounter
--- OUTSIDE RECORDS SUMMARY | 2022-06-15 11:06 | XMS_ITS | Encounter Summary ---
:1955 Author Organization [place] Address [address] [place] [address] Care Team Providers Name Role Phone Unavailable Primary Care Provider Unavailable Encounter Details Date Type Department Care Team Description 01/28/2021 Records - Nyla ENCISO HE CONVERSION Provider, Histor ical Social History Tobacco Use Types Packs/Day Years Used Date Smoking Tobacco: Never Assessed Sex Assigned at Date Recorded Female 11/25/2020 4:39 PM CDT documented as of this encounter Plan of Treatment Not on filedocumented as of this encounter Procedures Procedure Name Priority Date/Time Associated Diagnosis Comme nts MAMMO MISC(FCIS) Routine 10/15/2002 12:00 AM Resu lts for this ORDER BOX PACKER procedure are i n the results section. documented in this encounter Results Mammo Misc Order (10/15/2002 12:00 AM BOX PACKER) Anatomical Region Laterality Modality Other Specimen (Source) Anatomical Location Collection Method / Collectio n Time Received Time / Laterality Volume Narrative 10/15/2002 12:00 AM BOX PACKER See Historical Hospital Medical Record f or documentation Procedure Note Provider, Historical - 01/28/2021Formatt ing of this note might be different from the original. See Historical Hospital Medical Record f or documentation Historical Provider IMG MAMMOGRAPHY ORDERABLES documented in this encounter Visit Diagnoses Not on filedocumented in this encounter
--- OUTSIDE RECORDS SUMMARY | 2022-06-15 11:06 | XMS_ITS | Encounter Summary ---
:1955 Author Organization [place] Address [address] [place] [address] Care Team Providers Name Role Phone Unavailable Primary Care Provider Unavailable Encounter Details Date Type Department Care Team Description 10/10/2019 Communication - [facility] Provider, [facility] [address], [address] [place] [id number] Social History Tobacco Use Types Packs/Day Years Used Date Smoking Tobacco: Never Assessed Sex Assigned at Date Recorded Female 11/25/2020 4:39 PM CDT documented as of this encounter Plan of Treatment Not on filedocumented as of this encounter Visit Diagnoses Not on filedocumented in this encounter
--- OUTSIDE RECORDS SUMMARY | 2022-06-15 11:06 | XMS_ITS | Encounter Summary ---
:1955 Author Organization [place] Address [address] [facility] [place] [address] Care Team Providers Name Role Phone Jennifer Reid NP Primary Care Provider Reason for Visit Reason Comments Establish Care Physical fasting, travel shots Encounter Details Date Type Department Care Team Description 11/15/2018 Office Visit - [facility] Jeanette, Annual p hysical exam; [facility] Devan Rodriguez NP Postmenopausal status; [address] Travel advice encounter; [address] [facility] [address] Establishing care with new doctor, omi boggs for [address] [place], [place] [address] [facility] [phone] [place], [place] (Work) [phone] Social History Tobacco Use Types Packs/Day Years Used Date Smoking Tobacco: Never Assessed Sex Assigned at Date Recorded Female 11/25/2020 4:39 PM CDT documented as of this encounter Last Filed Vital Signs Vital Sign Reading Time Taken Comments Blood Pressure - - Pulse - - Temperature - - Respiratory Rate - - Oxygen Saturation - - Inhaled Oxygen Concentration - - Weight 64 kg (141 lb) 11/15/2018 9:52 AM CDT Height 162.6 cm (5' 4) 11/15/2018 9:52 AM CDT Body Mass Index 24.2 11/15/2018 9:52 AM CDT documented in this encounter Progress Notes Jennifer Reid NP - 11/15/2018 9:40 AM CDT Cindy Duarte is a 63 y.o. female is here for a Health Maintenance exam, establish care and for atravel visit. Medical, family and surgical history reviewed. Patient is , she has a total of 4 children. She works full-time as a territory sales manager and operations. She does drink 1 glass of wine per day, she is a non-smoker and denies illicit drug use. She does exercise 2 days/week. She recently had her colonoscopy, I do not have the results on file. She is unsure if she completed a release of records at the facility she had a colonoscopy performed at. She did have a mammogram performed in October 2018 which was negative for malignancy. She has been postmenopausal for several years, well over6 years. She has never had a bone scan. Orders were placed for this today. She is up-to-date on her Pap smears. Last 2 Paps performed in 2010 and 2014 were negative for ASCUS or HPV. She has no concerns for STD testing. Her vital signs are stable today. Travel visit: Patient is leaving [place] on November 29 and returning on December 07 for her daughter's [place] [facility]. She will be visiting both urban andrural locations while she is there. We did review her immunization record with the recommended vaccination guidelines per the CDC. We will plan to update her hep A, hep B, shingles, tetanus and typhoidvaccinations today. She denies any recent flulike symptoms, no history of kidney or liver dysfunction. Did discuss DVT prophylaxis being that her flight is rather long. She does plan on continuing her daily baby aspirin, advised her to perform foot pumps every hour while she is on the plane, she is planning on wearing her Aaron stockings that she has from when she had her foot surgery. VSS Healthy Habits: Regular Exercise: Yes Sunscreen Use: Yes Healthy Diet: Yes Dental Visits Regularly: Yes Seat Belt: Yes Sexually active: Yes Self Breast Exam Monthly:Yes Hemoccults: No Flex Sig: No Colonoscopy: Yes Lipid Profile: Yes Glucose Screen: Yes Prevention of Osteoporosis: Yes Last Dexa: No Guns at Home: No Domestic Violence: No Current Outpatient Medications Include: Current Outpatient Medications: ??? aspirin 81 MG EC tablet, Take 81 mg by mouth daily., Disp: , Rfl: ??? mometasone (NASONEX) 50 mcg/actuation nasal spray, USE TWO SPRAYS IN EACH NOSTRIL ONCE DAILY, Disp: 17 g, Rfl: 10 ??? multivitamin (MULTIVITAMIN) per tablet, 1 tablet daily., Disp: , Rfl: Allergies: No Known Allergies Past Medical History: Diagnosis Date ??? Allergic rhinitis, cause unspecified ??? Pure hypercholesterolemia ??? Vitamin D deficiency Past Surgical History: Procedure Laterality Date ??? x4 ??? TUBAL LIGATION OB History Para Term AB Living 4 4 4 SAB TAB Ectopic Multiple Live Births # Outcome Date GA Lbr Feliciano/2nd Weight Sex Delivery Anes PTL Lv 4 Term F Comments: Mira 3 Term F Comments: Maria Luisa 2 Term M Comments: Dexter 1 Term F Comments: Es Immunization History Administered Date(s) Administered ??? DT (pediatric) 02/28/1996 ? ? Hep A, Adult IM (19yr & older) 02/21/2008, 07/06/2016, 11/15/2018 ??? Hep A, historic 02/21/2008 ??? Hep B, Adult 11/15/2018 ??? Influenza, inj, historic,unspecified 05/21/2010, 06/02/2016 ??? Influenza,seasonal, Inj IIV3 07/07/2010 ? ? Pneumo Conj 13-V (2010&after) 07/06/2016 ??? Td,adult,historic,unspecified 02/21/2008 ??? Tdap 02/21/2008, 11/15/2018 ??? Typhoid, Inj, Inactive 11/15/2018 ??? ZOSTER, LIVE 07/06/2016 ??? ZOSTER, RECOMBINANT, IM 11/15/2018 Family History Problem Relation Age of Onset [...] resource strain: Not on file ??? Food insecurity: Worry: Not on file Inability: Not on file ??? Transportation needs: Medical: Not on file Non-medical: Not on file Tobacco Use ??? Smoking status: Never Smoker ??? Smokeless tobacco: Never Used Substance and Sexual Activity ??? Alcohol use: Yes Drinks per session: 1 or 2 ??? Drug use: No ??? Sexual activity: Yes Partners: Male control/protection: None Lifestyle ??? Physical activity: Days per week: Not on file Minutes per session: Not on file ??? Stress: Not on file Relationships ??? Social connections: Talks on phone: Not on file Gets together: Not on file Attends buddhism service: Not on file Active member of club or organization: Not on file Attends meetings of clubs or organizations: Not on file Relationship status: Not on file ??? Intimate partner violence: Fear of current or ex partner: Not on file Emotionally abused: Not on file Physically abused: Not on file Forced sexual activity: Not on file Other Topics Concern ??? Not on file Social History Narrative Lives with Last cholesterol: Lab Results Component Value Date CHOL 226 (H) 07/26/2016 CHOL 246 (H) 07/07/2015 CHOL 235 (H) 10/18/2014 Lab Results Component Value Date HDL 72 07/26/2016 HDL 82 10/18/2014 HDL 81 07/26/2012 Lab Results Component Value Date LDLCALC 143 (H) 07/26/2016 LDLCALC 144 (H) 10/18/2014 LDLCALC 133 (H) 07/26/2012 Lab Results Component Value Date TRIG 57 07/26/2016 TRIG 43 10/18/2014 TRIG 52 07/26/2012 No components found for: CHOLHDL MAMMO: Up to date Control Method: None High Risk/Behavior: LMP: Patient's last menstrual period was 08/26/2011. Menstrual Regularity: Flow: Review of Systems: General: Denies fever, chills, HOLLEY, fatigue, myalgias, weight change Eyes: Denies vision changes Ears/Nose/Throat: Denies nasal congestion, rhinorrhea, ear pain or discharge, sore throat, swollen glands Cardiovascular: Denies CP, palpitations Respiratory: Denies SOB, cough Gastrointestinal: Denies changes in bowel habits, melena, rectal bleeding, Genitourinary: Denies changes in urine habits/frequency/dysuria, hematuria Musculoskeletal: Denies joint pain or swelling or erythema, edema Skin: Denies rashes Neurologic: Denies weakness, paresthesia Psychiatric: Denies mood changes Endocrine: Denies polyuria, polydipsia, polyphagia Heme/Lymphatic: Denies problem with bleeding Allergic/Immunologic: Denies problem POSITIVES: None PHYSICAL EXAM: BP 114/64 Pulse 76 Temp 98.4 ??F (36.9 ??C) Resp 14 Ht 5' 4 (1.626 m) Wt 141 lb (64 kg) LMP 08/26/2011 SpO2 98% ? No BMI 24.20 kg/m?? Wt Readings from Last 3 Encounters: 11/15/18 141 lb (64 kg) 07/06/16 142 lb (64.4 kg) 04/27/16 142 lb (64.4 kg) Body mass index is 24.2 kg/m??. Well developed, well nourished, no acute distress. HEENT: normocephalic/atraumatic EYES:PERRLA/EOMI, no redness, swelling or drainage EARS: TMs: Deshpande, normal light reflex NOSE: no nasal discharge. MOUTH: Oral mucosa: no erythema/exudate Neck: No LAD/masses/thyromegaly/bruits Lungs: clear bilaterally Heart: regular rate and rhythm, no murmurs/gallops/rubs, no edema. Bilateral femoral, pedal and posttibial pulses palpable, 2+ Breasts: symmetric, no masses/skin changes, nipple discharge, or axillary LAD. BSE reviewed. Abdomen: Normal bowel sounds, soft, non-tender, non-distended, no masses, neg Lamb's/McBurney's, no rebound/guarding Genital: Normal external genitalia, no discharge, no lesions. Internal pelvic exam is negative for masses, bleeding or discharge, no odor detected. Rectal: internal exam is deferred. External exam is normal. Lymphatics: no supraclavicular/axillary/epitrochlear/inguinal LAD. No edema. Neuro: A&O x 3, CN II-XII intact, strength 5/5, reflexes symmetric, sensory intact to light touch. Psych: Behavior appropriate, engaging. Thought processes congruent, non-tangential. Musculoskeletal: no gross deformities. Skin: no rashes or lesions, warm and dry, no atypical moles Recent Results (from the past 240 hour(s)) Hemoglobin Result Value Ref Range Hemoglobin 14.7 12.0 - 16.0 g/dL ASSESSMENT/PLAN: 63 y.o. female physical exam and pelvic exam Body Mass Index was not assessed due to normal. 1. Annual physical exam - Thyroid Stimulating Hormone (TSH) - Basic Metabolic Panel - Hemoglobin - Vitamin D, Total (25-Hydroxy) - Lipid Crisp 2. Postmenopausal status - DXA Bone Density Scan; Future 3. Travel advice encounter - Hepatitis A adult 2 dose IM (19 yr & older) - Hepatitis B Vaccine Age 20 years and above - Typhoid, Inactive, Inj - Varicella Zoster, Recombinant Vaccine IM 4. Establishing care with new doctor, encounter for Medications Discontinued During This Encounter Medication Reason ??? mometasone (NASONEX) 50 mcg/actuation nasal spray Duplicate order Routine health maintenance discussion: No smoking, limited alcohol (7 or less servings per week), 5 fruits/veg servings per day, 200 minutes of exercise per week. Daily calcium/vitamin D guidelines, bone health, yearly mammogram after age 39/regular pap smears/colon cancer screening beginning at age 50. Accident avoidance, sun screen. Will contact her with the results of the labs when available. Return in 1 year for next annual physical Jennifer Reid CNP documented in this encounter Plan of Treatment Not on filedocumented as of this encounter Procedures Procedure Name Priority Date/Time Associated Comments Diagnosis 1,25 DIHYDROXYVITAMIN D Routine 11/15/2018 10:38 Results for this AM CDT procedure are i n the results section. VITAMIN D DEFICIENCY Routine 11/15/2018 10:38 Res ults for this SCREENING AM CDT procedure are i n the results section. TSH Routine 11/15/2018 10:38 Results for this AM CDT procedure are i n the results section. LIPID PROFILE Routine 11/15/2018 10:38 Results fo r this AM CDT procedure are i n the results section. HEMOGLOBIN Routine 11/15/2018 10:38 Results for this AM CDT procedure are i n the results section. BASIC METABOLIC PANEL Routine 11/15/2018 10:38 Re sults for this AM CDT procedure are i n the results section. documented in this encounter Results (ABNORMAL) Vitamin D Deficiency (11/15/2018 10:38 AM CDT) P athologist Signature Vitamin D, 17.2 (L) 30.0 - 11/16/2018 Total 80.0 ng/mL 11:28 AM CDT (25-Hydroxy) Specimen Anatomical Collection Method / Collection Time Recei jake Time (Source) Location / Volume Laterality Blood specimen Venipuncture / 11/15/2018 10:38 019 6:12 (specimen) Unknown AM CDT PM CDT Narrative 11/16/2018 11:28 AM CDT Deficiency <10.0 ng/mL Insufficiency 10.0-29.9 ng/mL Sufficiency 30.0-80.0 ng/mL Toxicity (possible) >100.0 ng/mL Jennifer Reid NP LAB - BLOOD ORDERABLES (ABNORMAL) Lipid Profile (11/15/2018 10:38 AM CDT) Patholo gist Method Time Signature Cholesterol 255 (H) <=199 11/15/2018 mg/dL 7:27 PM CDT Triglycerides 64 <=149 11/15/2018 mg/dL 7:27 PM CDT Direct Measure HDL 80 >=50 11/15/2018 mg/dL 7:27 PM CDT LDL Cholesterol 162 (H) <=129 11/15/2018 Calculated mg/dL 7:27 PM CDT Patient Fasting > Yes 11/15/2018 8hrs? 7:27 PM CDT Specimen Anatomical Collection Method / Collection Time Recei jake Time (Source) Location / Volume Laterality Blood specimen Venipuncture / 11/15/2018 10:38 019 6:11 (specimen) Unknown AM CDT PM CDT Jennifer Reid NP LAB - BLOOD ORDERABLES (ABNORMAL) 1,25 Dihydroxyvitamin D (11/15/2018 10:38 AM CDT) Analysis Performed At Patho logist Time Signature Vitamin D, 17.2 (L) 30.0 - 11/16/2018 [facility] Total 80.0 ng/mL 11:28 AM CDT [facility] (25-Hydroxy) [facility] Specimen Anatomical Collection Method / Collection Time Recei jake Time (Source) Location / Volume Laterality Blood specimen Venipuncture / 11/15/2018 10:38 019 6:12 (specimen) Unknown AM CDT PM CDT Narrative [facility] - 11/16/2018 11:28 AM CDT Deficiency <10.0 ng/mL Insufficiency 10.0-29.9 ng/mL Sufficiency 30.0-80.0 ng/mL Toxicity (possible) >100.0 ng/mL Jennifer Reid NP LAB - BLOOD ORDERABLES Performing Organization Address City/State/ZIP Code Phon [place] Number [place] [id number] [place], [place] [id number] LAB [address] [place] [id number], [facility] Hemoglobin (11/15/2018 10:38 AM CDT) P athologist Signature Hemoglobin 14.7 12.0 - 16.0 11/15/2018 g/dL 10:53 AM CDT Specimen Anatomical Collection Method / Collection Time Recei jake Time (Source) Location / Volume Laterality Blood specimen Venipuncture / 11/15/2018 10:38 019 (specimen) Unknown AM CDT 10:38 AM CDT Jennifer Reid NP LAB - BLOOD ORDERABLES Basic metabolic panel (11/15/2018 10:38 AM CDT) P athologist Signature Sodium 141 136 - 145 11/15/2018 mmol/L 7:27 PM CDT Potassium 4.9 3.5 - 5.0 11/15/2018 mmol/L 7:27 PM CDT Chloride 104 98 - 107 11/15/2018 mmol/L 7:27 PM CDT Carbon Dioxide 25 22 - 31 11/15/2018 (CO2) mmol/L 7:27 PM CDT Anion Gap 12 5 - 18 11/15/2018 mmol/L 7:27 PM CDT Glucose 93 70 - 125 11/15/2018 mg/dL 7:27 PM CDT Calcium 9.9 8.5 - 10.5 11/15/2018 mg/dL 7:27 PM CDT Urea Nitrogen 15 8 - 22 11/15/2018 mg/dL 7:27 PM CDT Creatinine 0.80 0.60 - 11/15/2018 1.10 mg/dL 7:27 PM CDT GFR Estimate If >60 >60 11/15/2018 Black mL/min/1.7 7:27 PM CDT 3m2 GFR Estimate >60 >60 11/15/2018 mL/min/1.7 7:27 PM CDT 3m2 Specimen Anatomical Collection Method / Collection Time Recei jake Time (Source) Location / Volume Laterality Blood specimen Venipuncture / 11/15/2018 10:38 019 6:11 (specimen) Unknown AM CDT PM CDT Narrative 11/15/2018 7:27 PM CDT Fasting Glucose reference range is 70-99 mg/dL per [place] [employer] (ADA) hannah louise. Jennifer Reid NP LAB - BLOOD ORDERABLES TSH (11/15/2018 10:38 AM CDT) P athologist Signature TSH 2.55 0.30 - 5.00 11/15/2018 7:51 uIU/mL PM CDT Specimen Anatomical Collection Method / Collection Time Recei jake Time (Source) Location / Volume Laterality Blood specimen Venipuncture / 11/15/2018 10:38 019 6:11 (specimen) Unknown AM CDT PM CDT Jennifer Reid NP LAB - BLOOD ORDERABLES documented in this encounter Visit Diagnoses Diagnosis Annual physical exam Routine general medical examination at a health care facility Postmenopausal status Asymptomatic postmenopausal status (age- related) (natural) Travel advice encounter Establishing care with new omi rahman for documented in this encounter Care Teams Cold Food Packer Relationship Specialty Start Date End Date Jennifer Reid NP PCP - General 11/15/18 11/19/18 documented as of this encounter
--- OUTSIDE RECORDS SUMMARY | 2022-06-15 11:06 | XMS_ITS | Encounter Summary ---
:1955 Author Organization [facility] Address [address] [place] [address] Care Team Providers Name Role Phone Jennifer Reid RUBBER DOWN Primary Care Provider Jennifer Reid RUBBER DOWN Primary Care Provider Jagdeep Eng Primary Care Provider Gini Snow MD Primary Care Provider Jennifer Reid NP Unavailable Encounter Details Date Type Department Care Team Description 05/05/2017 Records - [facility] CONVERSION Provider, Andrzej aparicio Social History Tobacco Use Types Packs/Day Years Used Date Smoking Tobacco: Never Assessed Sex Assigned at Date Recorded Female 11/25/2020 4:39 PM CDT documented as of this encounter Plan of Treatment Not on filedocumented as of this encounter Visit Diagnoses Not on filedocumented in this encounter Care Teams Welfare Service Aide Relationship Specialty Start Date End Date Jennifer Reid NP PCP - General 10/12/18 11/02/18 Jennifer Reid NP PCP - General 11/15/18 11/19/18 Jagdeep Eng PCP - General 02/21/08 09/26/[address] [place] [id number] Gini Snow MD PCP - General 09/27/18 10/11/18 Jennifer Reid NP Assigned PCP 02/18/21 [address] [place] [id number] documented as of this encounter
--- OUTSIDE RECORDS SUMMARY | 2022-06-15 11:06 | XMS_ITS | Encounter Summary ---
:1955 Author Organization [place] Address [facility] [place] [address] Care Team Providers Name Role Phone Unavailable Primary Care Provider Unavailable Encounter Details Date Type Department Care Team Description 02/06/2020 Communication - [facility], [facility] DANITZA Rodriguez [address] [address] [address] [place] [address] [place], [place] [phone] (Work) [phone] Social History Tobacco Use Types Packs/Day Years Used Date Smoking Tobacco: Never Assessed Sex Assigned at Date Recorded Female 11/25/2020 4:39 PM CDT documented as of this encounter Plan of Treatment Not on filedocumented as of this encounter Visit Diagnoses Not on filedocumented in this encounter
--- OUTSIDE RECORDS SUMMARY | 2022-06-15 11:06 | XMS_ITS | Encounter Summary ---
:1955 Author Organization [facility] Address [address] [place] [address] Care Team Providers Name Role Phone Unavailable Primary Care Provider Unavailable Encounter Details Date Type Department Care Team Description 11/19/2019 [facility] [place] [address] Social History Tobacco Use Types Packs/Day Years [...] Associated Diagnosis Comme nts MA SCREENING Routine 11/19/2019 5:11 PM Visit for screening Re sults for this DIGITAL BILATERAL CDT mammogram procedure are in the results section. documented in this encounter Results MA Screening Digital Bilateral (11/19/2019 5:11 PM CDT) Anatomical Region Laterality Modality Breast Bilateral Other Specimen (Source) Anatomical Location Collection Method / Collectio n Time Received Time / Laterality Volume Narrative 11/20/2019 12:09 PM CDT BILATERAL FULL FIELD DIGITAL SCREENING MAMMOGRAM Performed on: 11/19/19. Compared to: 10/10/2018 Mammo Screening Bilateral and 08/26/2017 Mammo Screening Bilateral Findings: The breasts have scattered are as of fibroglandular densities. There is no radiographic evidence of malignancy. This study was evaluated with the assistance of Computer-Aided Detection. Continue routine screening mammogram as recommended. ACR BI-RADS Category 1: Negative Procedure Note Josie Londono MD - 02/12/2021For matting of this note might be different from the original. BILATERAL FULL FIELD DIGITAL SCREENING M AMMOGRAM Performed on: 11/19/19. Compared to: 10/10/2018 Mammo Screening Bilateral and 08/26/2017 Mammo Screening Bilateral Findings: The breasts have scattered are as of fibroglandular densities. There is no radiographic evidence of malignancy. This study was evaluated with the assistance of Computer-Aided Detection. Continue routine screening mammogram as recommended. ACR BI-RADS Category 1: Negative Jennifer Reid NP [employer] MAMMOGRAPHY ORDERABLES documented in this encounter Visit Diagnoses Diagnosis Visit for screening mammogram Other screening mammogram documented in this encounter
--- OUTSIDE RECORDS SUMMARY | 2022-06-15 11:06 | XMS_ITS | Encounter Summary ---
:1955 Author Organization [place] Address [address] [facility] [place] [address] Care Team Providers Name Role Phone Unavailable Primary Care Provider Unavailable Encounter Details Date Type Department Care Team Description 01/27/2021 Records - [facility] Calixto Reid ic menopausal state; [facility] [place] DANITZA Rodriguez Other specified disorders of bone densit y and structure, unspecified site [facility] [address] [address]29[address] [facility], [address] [place], [place] [address] [place] [address] [phone] (Work) [phone] Social History Tobacco Use Types Packs/Day Years Used Date Smoking Tobacco: Never Assessed Sex Assigned at Date Recorded Female 11/25/2020 4:39 PM CDT documented as of this encounter Plan of Treatment Not on filedocumented as of this encounter Procedures Procedure Name Priority Date/Time Associated Diagnosis Comme nts DX HIP/PELVIS/SPINE Routine 01/27/2021 4:24 PM Asymptomatic Re sults for this CDT menopausal state procedure are in Other specified the results disorders of bone section. density and structure, unspecified site documented in this encounter Results DX Hip/Pelvis/Spine (01/27/2021 4:24 PM CDT) Anatomical Region Laterality Modality Dexa Other Specimen (Source) Anatomical Location Collection Method / Collectio n Time Received Time / Laterality Volume Narrative 01/28/2021 4:15 PM CDT 01/27/2021 RE: Cindy Duarte Date of : 1955 Jennifer Mitchell, Patient Profile: 65 y.o. female, postmenopausal, is here for the follow up bone density test. History of fractures ? None. Family history of osteoporosis - None. ??Family history of hip fracture: None. Smoking history - No. Osteoporosis treatment past ? ??Yes; ??Bisphosphonates. Osteoporosis treatment current ? No. ??Chronic medical problems - None. High risk medications ? ??None. Assessment: 1. The spine bone density L1-L4 with T-s core -1.6, and significant improvement of 3.9 % compared to 2019. 2. Femoral bone densities show left femo ral neck T- score -2.1 and right femoral neck T-score -2.2, and significant improvement of 4.1% on the left hip and 4.3% on the right hip compared to 2019. 3. Trabecular bone score indicates poor trabecular bone architecture. 65 y.o. female with LOW BONE DENSITY (OS TEOPENIA) and MODERATE fracture risk, adjusted for the TBS, with major osteoporotic fracture risk 14.5% and hip fracture risk 2.8%. Recommendations: Appropriate calcium, vitamin D supplemen ts, along with balance and weight bearing exercise recommended with follow up bone density scan in 2 years. Bone densitometry was performed on your patient using our [employer] densitometer. The results are summarized and a copy of the actual scans are included for your review. In conformity with the Inter national Society of Clinical Densitometr y's most recent position statement for DXA interp retation (2015), the diagnosis will be made on the lowest measured T-score of the lumbar spine, femoral neck, total proximal femur or 33% radius. Note the change in terminology for diagnostic classifica tion from OSTEOPENIA to LOW BONE MASS. All trendin g for sequential exams will be done using multiple vertebrae or the total proximal femur. Fracture risk is based on the WHO Fracture Risk Assessment Tool (FRAX). If additional information is needed or i f you would like to discuss the results, please do n ot hesitate to call me. Thank you for referring this patient to [facility]. We are happy to be of service in support of you and your practice. If you have any questions or suggestions to improve our service, please call me at [phone]. Sincerely, Ruben Durbin. [facility] Procedure Note Tiffanie Quinones - 02/17/2021Formatting o f this note might be different from the original. 01/27/2021 RE: Cidny Duarte Date of : 1955 Dear Jennifer Reid, Patient Profile: 65 y.o. female, postmenopausal, is here for the follow up bone density test. History of fractures ? None. Family history of osteoporosis - None. Family history of hip fracture: None. Smoking history - No. Osteoporosis treatment past ? Yes; Bisphosphonates. Osteoporosis treatment current ? No. Chronic medical problems - None. High risk medications ? None. Assessment: 1. The spine bone density L1-L4 with T-s core -1.6, and significant improvement of 3.9 % compared to 2019. 2. Femoral bone densities show left femo ral neck T- score -2.1 and right femoral neck T-score -2.2, and significant improvement of 4.1% on the left hip and 4.3% on the right hip compared to 2019. 3. Trabecular bone score indicates poor trabecular bone architecture. 65 y.o. female with LOW BONE DENSITY (OS TEOPENIA) and MODERATE fracture risk, adjusted for the TBS, with major osteoporotic fracture risk 14.5% and hip fracture risk 2.8%. Recommendations: Appropriate calcium, vitamin D supplemen ts, along with balance and weight bearing exercise recommended with follow up bone density scan in 2 years. Bone densitometry was performed on your patient using our [employer] densitometer. The results are summarized and a copy of the actual scans are included for your review. In conformity with the International Society of Clinical Densitometry's most recent position statement for DXA interp retation (2015), the diagnosis will be made on the lowest measured T-score of the lumbar spine, femoral neck, total proximal femur or 33% radius. Note the change in terminology for diagnostic classification from OSTEOPENIA to LOW BONE MASS. All trendin g for sequential exams will be done using multiple vertebrae or the total proximal femur. Fracture risk is based on the WHO Fracture Risk Assessment Tool (FRAX). If additional information is needed or if you would like to discuss the results, please do n ot hesitate to call me. Thank you for referring this patient to [facility]. We are happy to be of service in support of you and your practice. If you have any questions or suggestions to improve our service, please call me at [phone]. Sincerely, Tiffanie Quinones M.D. AlbertoCRobinson [facility] Jennifer Reid NP [employer] DEXA ORDERABLES documented in this encounter Visit Diagnoses Diagnosis Asymptomatic menopausal state Asymptomatic postmenopausal status (age- related) (natural) Other specified disorders of bone densit y and structure, unspecified site documented in this encounter
--- OUTSIDE RECORDS SUMMARY | 2022-06-15 11:06 | XMS_ITS | Encounter Summary ---
:1955 Author Organization [place] Address [address] [place] [address] Care Team Providers Name Role Phone Unavailable Primary Care Provider Unavailable Encounter Details Date Type Department Care Team Description 12/24/2020 Ambulatory - Health[address] [address] Social History Tobacco Use Types Packs/Day Years Used Date Smoking Tobacco: Never Assessed Sex Assigned at Date Recorded Female 11/25/2020 4:39 PM CDT documented as of this encounter Plan of Treatment Not on filedocumented as of this encounter Visit Diagnoses Not on filedocumented in this encounter
--- OUTSIDE RECORDS SUMMARY | 2022-06-15 11:06 | XMS_ITS | Encounter Summary ---
:1955 Author Organization [place] Address [address] [place] [address] Care Team Providers Name Role Phone Unavailable Primary Care Provider Unavailable Encounter Details Date Type Department Care Team Description 01/30/2021 Records - [facility] CONVERSION Provider, Histor ical Social History Tobacco Use Types Packs/Day Years Used Date Smoking Tobacco: Never Assessed Sex Assigned at Date Recorded Female 11/25/2020 4:39 PM CDT documented as of this encounter Plan of Treatment Not on filedocumented as of this encounter Procedures Procedure Name Priority Date/Time Associated Diagnosis Comme nts MAMMO MISC(FCIS) Routine 04/28/2004 12:00 AM Resu lts for this ORDER CDT procedure are i n the results section. documented in this encounter Results Mammo Misc Order (04/28/2004 12:00 AM CDT) Anatomical Region Laterality Modality Other Specimen (Source) Anatomical Location Collection Method / Collectio n Time Received Time / Laterality Volume Narrative 04/28/2004 12:00 AM CDT See Historical Hospital Medical Record f or documentation Procedure Note Provider, Historical - 01/30/2021Formatt ing of this note might be different from the original. See Historical Hospital Medical Record f or documentation Historical Provider IMG MAMMOGRAPHY ORDERABLES documented in this encounter Visit Diagnoses Not on filedocumented in this encounter
--- OUTSIDE RECORDS SUMMARY | 2022-06-15 11:06 | XMS_ITS | Encounter Summary ---
:1955 Author Organization [place] Address [address] [place] [address] Care Team Providers Name Role Phone Jennifer eRid WEATHERIZATION FIELD TECHNICIAN Primary Care Provider Jennifer Reid WEATHERIZATION FIELD TECHNICIAN Primary Care Provider Jagdeep Eng Primary Care Provider Gini Snow MD Primary Care Provider Jennifer Reid NP Unavailable Encounter Details Date Type Department Care Team Description 06/23/2016 Records - [facility] CONVERSION Provider, Andrzej aparicio Social History Tobacco Use Types Packs/Day Years Used Date Smoking Tobacco: Never Assessed Sex Assigned at Date Recorded Female 11/25/2020 4:39 PM CDT documented as of this encounter Plan of Treatment Not on filedocumented as of this encounter Visit Diagnoses Not on filedocumented in this encounter Care Teams Systems Software Designer Relationship Specialty Start Date End Date Jennifer Redi NP PCP - General 10/12/18 11/02/18 Jennifer Reid NP PCP - General 11/15/18 11/19/18 Jagdeep Eng PCP - General 02/21/08 09/26/[address] Devan Monsivais [place] [id number] Gini Snow MD PCP - General 09/27/18 10/11/18 Jennifer Reid NP Assigned PCP 02/18/21 [address], [address] [place] [id number] documented as of this encounter
--- OUTSIDE RECORDS SUMMARY | 2022-06-15 11:06 | XMS_ITS | Encounter Summary ---
:1955 Author Organization [place] Address [address] [facility] [place] [address] Care Team Providers Name Role Phone Unavailable Primary Care Provider Unavailable Encounter Details Date Type Department Care Team Description 11/21/2018 Ambulatory - Health [place] Duhamel, Travel adv [facility] Devan Rodriguez NP encounter [address] [place] [address] S, [address] [facility] S, [address] [place] [address] [place] Prof [phone] Felicitas (Work) [place], [place] [phone] [address] (Fax) [phone] Social History Tobacco Use Types Packs/Day Years Used Date Smoking Tobacco: Never Assessed Sex Assigned at Date Recorded Female 11/25/2020 4:39 PM CDT documented as of this encounter Plan of Treatment Not on filedocumented as of this encounter Visit Diagnoses Diagnosis Travel advice encounter documented in this encounter
--- OUTSIDE RECORDS SUMMARY | 2022-06-15 11:06 | XMS_ITS | Encounter Summary ---
:1955 Author Organization [place] Address [facility] [place] [address] Care Team Providers Name Role Phone Jennifer Reid NP Unavailable Encounter Details Date Type Department Care Team Description 01/20/2021 Records - [facility] CONVERSION Provider, Historica l Social History Tobacco Use Types Packs/Day Years Used Date Smoking Tobacco: Never Assessed Sex Assigned at Date Recorded Female 11/25/2020 4:39 PM CDT documented as of this encounter Plan of Treatment Not on filedocumented as of this encounter Visit Diagnoses Not on filedocumented in this encounter Care Teams Labor Economist Relationship Specialty Start Date End Date Jennifer Reid NP Assigned PCP 02/18/21 [address], [address] [place] [id number] documented as of this encounter
--- OUTSIDE RECORDS SUMMARY | 2022-06-15 11:06 | XMS_ITS | Encounter Summary ---
:1955 Author Organization [place] Address [address] [place] [address] Care Team Providers Name Role Phone Gini Snow MD Primary Care Provider Encounter Details Date Type Department Care Team Description 10/10/2018 [facility] MD Gini mammogram Center [address] [place] [phone] [facility] [phone] [place] [address] Social History Tobacco Use Types Packs/Day [...] Associated Diagnosis Comme nts MA SCREENING Routine 10/10/2018 7:13 AM Visit for screening Re sults for this DIGITAL BILATERAL CARE DIRECTOR mammogram procedure are in the results section. documented in this encounter Results MA Screening Digital Bilateral (10/10/2018 7:13 AM CARE DIRECTOR) Anatomical Region Laterality Modality Breast Bilateral Other Specimen (Source) Anatomical Location Collection Method / Collectio n Time Received Time / Laterality Volume Narrative 10/10/2018 12:04 PM CARE DIRECTOR BILATERAL FULL FIELD DIGITAL SCREENING MAMMOGRAM Performed on: 10/10/18. Compared to: 08/26/2017 Mammo Screening Bilateral and 06/03/2016 Mammo Screening Bilateral Findings: The breasts have scattered are as of fibroglandular densities. There is no radiographic evidence of malignancy. This study was evaluated with the assistance of Computer-Aided Detection. Continue routine screening mammogram as recommended. ACR BI-RADS Category 1: Negative Procedure Note Keith Carr MD - 02/11/2021Fo rmatting of this note might be different from the original. BILATERAL FULL FIELD DIGITAL SCREENING M AMMOGRAM Performed on: 10/10/18. Compared to: 08/26/2017 Mammo Screening Bilateral and 06/03/2016 Mammo Screening Bilateral Findings: The breasts have scattered are as of fibroglandular densities. There is no radiographic evidence of malignancy. This study was evaluated with the assistance of Computer-Aided Detection. Continue routine screening mammogram as recommended. ACR BI-RADS Category 1: Negative Gini Snow MD IMG MAMMOGRAPHY ORDERABLES documented in this encounter Visit Diagnoses Diagnosis Visit for screening mammogram Other screening mammogram documented in this encounter Care Teams Powerhouse Laborer Relationship Specialty Start Date End Date Gini Snow MD PCP - General 09/27/18 10/11/18 documented as of this encounter
--- OUTSIDE RECORDS SUMMARY | 2022-06-15 11:06 | XMS_ITS | Encounter Summary ---
:1955 Author Organization [place] Address [facility] [place] [address] Care Team Providers Name Role Phone Jennifer Reid NP Primary Care Provider Jennifer Reid NP Primary Care Provider Jagdeep Eng Primary Care Provider Gini Snow MD Primary Care Provider Encounter Details Date Type Department Care Team Description 06/21/2016 Office Visit - [facility] Provider, Radicula r syndrome of left lower extremity; [facility] Rehabilitation Historical Muscle weakne ss (generalized) Services [address] [address] Social History Tobacco Use Types Packs/Day Years Used Date Smoking Tobacco: Never Assessed Sex Assigned at Date Recorded Female 11/25/2020 4:39 PM CDT documented as of this encounter Progress Notes Magdalena Garsia PT - 06/21/2016 8:37 AM CDT Images from the original note were not included. Progress Notes by Magdalena Garsia PT at 06/21/2016 8:37 AM Author: Magdalena Garsia PT Service: -- Author Type: Physical Therapist Filed: 09/16/2016 10:36 AM Encounter Date: 06/21/2016 Status: Addendum Assembly Associate: Magdalena Garsia PT (Physical Therapist) Related Notes: Original Note by Ady, Magdalena E, PT (Physical Therapist) filed at 06/21/2016 5:46PM [facility] Discharge Summary Patient Name: Cindy Duarte Date: 09/16/2016 Referral Diagnosis: L radicular pain Referring provider: Eliud Lau, * Visit Diagnosis: 1. Radicular syndrome of left lower extremity 2. Muscle weakness (generalized) Goals: Pt. will demonstrate/verbalize independence in self-management of condition in : 6 weeks Goal Met Patient will stand : 60 minutes;with less pain;for home chores;in 6 weeks Goal Met Patient will sit: 60 minutes;for driving;with less pain;in 6 weeks Goal Met Patient was seen for 4 visits from 05/17/16 to 06/16/16 with 0 missed appointments. The patient met goals and has demonstrated understanding of and independence in the home program forself-care, and progression to next steps. She will initiate contact if questions or concerns arise. Patient received a home program See below Therapy will be discontinued at this time. The patient will need a new referral to resume. Thank you for your referral. Magdalena Garsia 09/16/2016 10:33 AM [facility] Lumbo-Pelvic FOLLOW UP Patient Name: Cindy Duarte Date of evaluation: 06/21/2016 Referral Diagnosis: L radicular pain Referring provider: Eliud Lau, * Visits: 12/09 [facility] 20 visits. Visit Diagnosis: ICD-10-CM 1. Radicular syndrome of left lower extremity M54.10 2. Muscle weakness (generalized) M62.81 Assessment: Demonstrates anterior pelvic tilt and weak hip extensors B, L>R. Pt continues to note difficultysitting for prolonged periods due to pain in sacral area. Pt notes decreased pain at end of PT session. Pt. is appropriate for skilled PT intervention as outlined in the Plan of Care (POC). Pt. is a good candidate for skilled PT services to improve pain levels and function. Goals: Pt. will demonstrate/verbalize independence in self-management of condition in : 6 weeks Patient will stand : 60 minutes;with less pain;for home chores;in 6 weeks Patient will sit: 60 minutes;for driving;with less pain;in 6 weeks No Data Recorded Patient's expectations/goals are realistic. Barriers to Learning or Achieving Goals: No Barriers. Plan / Patient Instructions: Plan for next visit: MFR to Glutes, review exercises, backwards walking, hip extension Subjective: Over 24 hours without pain medication; Only sore. Some tingling down leg. Functional limitations are described as occurring with: - sitting a - standing - prolonged positioning Objective: Treatment Today TREATMENT MINUTES COMMENTS Evaluation Self-care/ Home management Manual therapy Neuromuscular Re-education 15 Standing on Bosu: AP Lateral Balance in the middle Tossing a 2000Gr ball with PT Therapeutic Activity Therapeutic Exercises 10 Review HEP HF stretch with PPT TG hip extension at level 7 x 10 reps each side Prone hip extension x 10 reps prone pt tends to lift too high that she can feel it in low back Gait training Modality Total 25 Blank areas are intentional and mean the treatment did not include these items. HEP: Magdalena Roz Ady 06/21/2016 11:36 AM documented in this encounter Plan of Treatment Not on filedocumented as of this encounter Visit Diagnoses Diagnosis Radicular syndrome of left lower extremi ty Muscle weakness (generalized) documented in this encounter Care Teams Turbo Generator Oiler Relationship Specialty Start Date End Date Jennifer Reid NP PCP - General 10/12/18 11/02/18 Jennifer Reid NP PCP - General 11/15/18 11/19/18 Jagdeep Eng PCP - General 02/21/08 09/26/[address] Devan [place], [place] [address] Gini Snow MD PCP - General 09/27/18 10/11/18 documented as of this encounter
--- OUTSIDE RECORDS SUMMARY | 2022-06-15 11:06 | XMS_ITS | Encounter Summary ---
:1955 Author Organization [place] Address [address] [facility] [place] [address] Care Team Providers Name Role Phone Unavailable Primary Care Provider Unavailable Reason for Visit Reason Comments Medication Refill Encounter Details Date Type Department Care Team Description 12/27/2018 Communication - Health [place] Duhamel, Medicat ion Refill [facility] Devan Rodriguez NP [place] [address] [facility] [address] [facility] [address] [facility] S, [address] [place] [address] Nas[place] Prof [phone] [facility] (Work) [place], [place] [phone] [phone] (Fax) [phone] Social History Tobacco Use Types Packs/Day Years Used Date Smoking Tobacco: Never Assessed Sex Assigned at Date Recorded Female 11/25/2020 4:39 PM CDT documented as of this encounter Miscellaneous Notes Telephone Encounter - Alicia Sims RN - 12/29/2018 4:53 AM CDT Refill Approved Patient requests 90 day supply Rx renewed per Medication Renewal Policy. Medication was last renewed on 11/23/18 #4 R-11. Last OV 11/15/18 Bryce Hamm Connection Triage/Med Refill 12/29/2018 Requested Prescriptions Pending Prescriptions Disp Refills ??? alendronate (FOSAMAX) 70 MG tablet [Pharmacy Med Name: ALENDRONATE 70MG TABLETS] 12 tablet 11 Sig: TAKE 1 TABLET BY MOUTH EVERY 7 DAYS. TAKE IN THE MORNING ON AN EMPTY STOMACH WITH A FULL GLASSOF WATER, 30 MINUTES BEFORE FOOD Biphosphonates Refill Protocol Passed - 12/27/2018 6:24 AM Passed - PCP or prescribing provider visit in last 12 months Last office visit with prescriber/PCP: Visit date not found OR same dept: Visit date not found OR same specialty: 04/22/2016 Bailey Rasmussen MD Last physical: 11/15/2018 Last MTM visit: Visit date notfound Next visit within 3 mo: Visit date not found Next physical within 3 mo: Visit date not found Prescriber OR PCP: Jennifer Reid NP Last diagnosis associated with med order: 1. Osteopenia with high risk of fracture - alendronate (FOSAMAX) 70 MG tablet [Pharmacy Med Name: ALENDRONATE 70MG TABLETS]; TAKE 1 TABLET BYMOUTH EVERY 7 DAYS. TAKE IN THE MORNING ON AN EMPTY STOMACH WITH A FULL GLASS OF WATER, 30 MINUTES BEFORE FOOD Dispense: 12 tablet; Refill: 11 If protocol passes may refill for 12 months if within 3 months of last provider visit (or a total of15 months). Passed - Serum creatinine in last 12 months Creatinine Date Value Ref Range Status 11/15/2018 0.80 0.60 - 1.10 mg/dL Final documented in this encounter Plan of Treatment Not on filedocumented as of this encounter Visit Diagnoses Diagnosis Osteopenia with high risk of fracture documented in this encounter
--- OUTSIDE RECORDS SUMMARY | 2022-06-15 11:06 | XMS_ITS | Encounter Summary ---
:1955 Author Organization [place] Address [facility] [place] [address] Care Team Providers Name Role Phone Jennifer Reid INTAKE CLERK Primary Care Provider Jennifer Reid INTAKE CLERK Primary Care Provider Jagdeep Eng Primary Care Provider Gini Snow MD Primary Care Provider Reason for Visit Reason Comments Other Encounter Details Date Type Department Care Team Description 09/03/2016 Communication - [facility] Juvenal Eng [address] Devan [place] [id number] Other [facility] [place] Provider, Historical [address] [place] [address] S, [address] [place] [address] Social History Tobacco Use Types Packs/Day Years Used Date Smoking Tobacco: Never Assessed Sex Assigned at Date Recorded Female 11/25/2020 4:39 PM CDT documented as of this encounter Plan of Treatment Not on filedocumented as of this encounter Visit Diagnoses Diagnosis Chronic rhinitis documented in this encounter Care Teams Fitness Manager Relationship Specialty Start Date End Date Jennifer Reid NP PCP - General 10/12/18 11/02/18 Jennifer Reid NP PCP - General 11/15/18 11/19/18 Jagdeep Eng PCP - General 02/21/08 09/26/[address] [place] [address] Gini Snow MD PCP - General 09/27/18 10/11/18 documented as of this encounter
--- OUTSIDE RECORDS SUMMARY | 2022-06-15 11:06 | XMS_ITS | Encounter Summary ---
:1955 Author Organization [place] Address [address] [place] [address] Care Team Providers Name Role Phone Jennifer Reid NP Primary Care Provider Jennifer Reid NP Primary Care Provider Gini Snow MD Primary Care Provider Reason for Visit Reason Comments Patient Inquiry Encounter Details Date Type Department Care Team Description 10/10/2018 Communication - [facility], Patient Inquiry [facility] MD Gini [address] [facility] [address] [place] [address] Dr Arnold Jacob [address], [address] [place] [id number] Social History Tobacco Use Types Packs/Day Years Used Date Smoking Tobacco: Never Assessed Sex Assigned at Date Recorded Female 11/25/2020 4:39 PM CDT documented as of this encounter Miscellaneous Notes Telephone Encounter - Tatyana Dahl - 10/10/2018 3:22 PM CST Rescheduled. ER [place] Telephone Encounter - Kelly Alvarado - 10/10/2018 2:45 PM CST Upcoming Appointment Question When is the appointment: 10.13.18 What is your appointment for?: Physical Who is your appointment scheduled with?: Dr. Snow What is your question/concern?: Patient wants to know why she can not see Dr. Snow. She is not wanting to see anybody else or trying to establish care she just wants her physical done. She has madetravel arrangements and had set her time and schedule around the day of the appointment. Tried to reschedule appointment with [place] and she does not want to be seen with anybody else. She wants someone to call her as soon as possible to explain why she can not see Dr. Snow. Okay to leave a detailed message?: Yes ER IN documented in this encounter Plan of Treatment Not on filedocumented as of this encounter Visit Diagnoses Not on filedocumented in this encounter Care Teams All Purpose Clerk Relationship Specialty Start Date End Date Jennifer Reid NP PCP - General 10/12/18 11/02/18 Jennifer Reid NP PCP - General 11/15/18 11/19/18 Gini Snow MD PCP - General 09/27/18 10/11/18 documented as of this encounter
--- OUTSIDE RECORDS SUMMARY | 2022-06-15 11:06 | XMS_ITS | Encounter Summary ---
:1955 Author Organization [place] Address [address] [place] [address] Care Team Providers Name Role Phone Unavailable Primary Care Provider Unavailable Encounter Details Date Type Department Care Team Description 10/10/2019 Communication - [facility] Provider, [facility] [address], [address] [place] [phone] Social History Tobacco Use Types Packs/Day Years Used Date Smoking Tobacco: Never Assessed Sex Assigned at Date Recorded Female 11/25/2020 4:39 PM CDT documented as of this encounter Plan of Treatment Not on filedocumented as of this encounter Visit Diagnoses Not on filedocumented in this encounter
--- OUTSIDE RECORDS SUMMARY | 2022-06-15 11:06 | XMS_ITS | Encounter Summary ---
:1955 Author Organization [place] Address [address] [place] [address] Care Team Providers Name Role Phone Jennifer Reid FISH HATCHERY MAN Primary Care Provider Jennifer Reid FISH HATCHERY MAN Primary Care Provider Jagdeep Eng Primary Care Provider Gini Snow MD Primary Care Provider Encounter Details Date Type Department Care Team Description 07/26/2016 Communication - [facility] Juvenal Eng [address] Devan [place] [id number] [facility] Tracy Provider, Historical [address] [place] [address] Social History Tobacco Use Types Packs/Day Years Used Date Smoking Tobacco: Never Assessed Sex Assigned at Date Recorded Female 11/25/2020 4:39 PM CDT documented as of this encounter Plan of Treatment Not on filedocumented as of this encounter Visit Diagnoses Not on filedocumented in this encounter Care Teams Pheresis Nurse Relationship Specialty Start Date End Date Jennifer Reid NP PCP - General 10/12/18 11/02/18 Jennifer Reid NP PCP - General 11/15/18 11/19/18 Jagdeep Eng PCP - General 02/21/08 09/26/[address] [place] [address] Gini Snow MD PCP - General 09/27/18 10/11/18 documented as of this encounter
--- OUTSIDE RECORDS SUMMARY | 2022-06-15 11:06 | XMS_ITS | Encounter Summary ---
:1955 Author Organization [place] Address [facility] [place] [address] Care Team Providers Name Role Phone Unavailable Primary Care Provider Unavailable Encounter Details Date Type Department Care Team Description 11/21/2018 Records - [facility], Asymptomat [facility] DANITZA Rodriguez menopausal state [facility] [address] [phone] (Work) [phone] Social History Tobacco Use Types Packs/Day Years Used Date Smoking Tobacco: Never Assessed Sex Assigned at Date Recorded Female 11/25/2020 4:39 PM CDT documented as of this encounter Plan of Treatment Not on filedocumented as of this encounter Procedures Procedure Name Priority Date/Time Associated Diagnosis Comme nts DX HIP/PELVIS/SPINE Routine 11/21/2018 4:25 PM Asymptomatic Re sults for this CDT menopausal state procedure a re in the results section. documented in this encounter Results DX Hip/Pelvis/Spine (11/21/2018 4:25 PM CDT) Anatomical Region Laterality Modality Dexa Other Specimen (Source) Anatomical Location Collection Method / Collectio n Time Received Time / Laterality Volume Narrative 11/22/2018 9:01 PM CDT 11/21/2018 RE: Cindy Duarte Date of : 1955 Dear Jennifer Reid, Patient Profile: 63 y.o. female, postmenopausal, is here for the first bone density test. History of fractures ? None. Family history of osteoporosis - None. ??Family history of hip fracture: None. Smoking history - No. Osteoporosis treatment past ? ??No. Osteoporosis treatment current ? No. ??Chronic medical problems - None. High risk medications ? ??None. Assessment: 1. The spine bone density L1-L4 with T-s core -1.9. 2. Femoral bone densities show left femo ral neck T- score -2.3 and right femoral neck T-score -2.2. 3. Trabecular bone score indicates poor trabecular bone architecture. 63 y.o. female with LOW BONE DENSITY (OS TEOPENIA) and HIGH fracture risk, adjusted for the TBS, with major osteoporotic fracture risk 15.4% and hip fracture risk 3.2%. Recommendations: Appropriate evaluation and treatment rec ommended with follow up bone density scan after 1 year of active treatment. Bone densitometry was performed on your patient using our SRE [place] - 2 densitometer. The results are summarized and a [...] Thank you for referring this patient to [facility]. We are happy to be of service in support of you and your practice. If you have any questions or suggestions to improve our service, please call me at [phone]. Sincerely, Tiffanie Quinones M.D. C.CLawrence. Osteoporosis Services, [facility] s Procedure Note Tiffanie Quinones - 02/11/2021Formatting o f this note might be different from the original. 11/21/2018 RE: Cindy Duarte Date of : 1955 Dear Jennifer Reid, Patient Profile: 63 y.o. female, postmenopausal, is here for the first bone density test. History of fractures ? None. Family history of osteoporosis - None. Family history of hip fracture: None. Smoking history - No. Osteoporosis treatment past ? No. Osteoporosis treatment current ? No. Chronic medical problems - None. High risk medications ? None. Assessment: 1. The spine bone density L1-L4 with T-s core -1.9. 2. Femoral bone densities show left femo ral neck T- score -2.3 and right femoral neck T-score -2.2. 3. Trabecular bone score indicates poor trabecular bone architecture. 63 y.o. female with LOW BONE DENSITY (OS TEOPENIA) and HIGH fracture risk, adjusted for the TBS, with major osteoporotic fracture risk 15.4% and hip fracture risk 3.2%. Recommendations: Appropriate evaluation and treatment rec ommended with follow up bone density scan after 1 year of active treatment. Bone densitometry was performed on your patient using our SRE [place] - 2 densitometer. The results are summarized and a [...] Thank you for referring this patient to [facility]. We are happy to be of service in support of you and your practice. If you have any questions or suggestions to improve our service, please call me at [phone]. Sincerely, Tiffanie Quinones M.D. CBaileyCLawrence. Osteoporosis Services, [facility] s Jennifer Reid NP IMBrown DEXA ORDERABLES documented in this encounter Visit Diagnoses Diagnosis Asymptomatic menopausal state Asymptomatic postmenopausal status (age- related) (natural) documented in this encounter
--- OUTSIDE RECORDS SUMMARY | 2022-06-15 11:06 | XMS_ITS | Encounter Summary ---
:1955 Author Organization [place] Address [address] [facility] [place] [address] Care Team Providers Name Role Phone Jennifer Reid NP Unavailable Encounter Details Date Type Department Care Team Description 11/21/2018 [facility] CON[facility] Provider, Andrzej l Social History Tobacco Use Types Packs/Day Years Used Date Smoking Tobacco: Never Assessed Sex Assigned at Date Recorded Female 11/25/2020 4:39 PM CDT documented as of this encounter Plan of Treatment Not on filedocumented as of this encounter Procedures Procedure Name Priority Date/Time Associated Diagnosis Comme nts DEXA - HIM SCAN 11/21/2018 documented in this encounter Results DEXA - HIM SCAN (11/21/2018) Anatomical Region Laterality Modality Other Narrative This result has an attachment that is no t available. Historical Provider IMG DEXA ORDERABLES documented in this encounter Visit Diagnoses Not on filedocumented in this encounter Care Teams Mud Logger Relationship Specialty Start Date End Date Jennifer Reid NP Assigned PCP 02/18/21 [address], [address] [place] [id number] documented as of this encounter
--- OUTSIDE RECORDS SUMMARY | 2022-06-15 11:06 | XMS_ITS | Encounter Summary ---
:1955 Author Organization [place] Address [address] [facility] [place] [address] Care Team Providers Name Role Phone Jennifer Reid NP Unavailable Jennifer Reid NP Primary Care Provider Encounter Details Date Type Department Care Team Description 01/23/2021 Records - [facility] HE CONVERSION Scan, Non-Provider Social History Tobacco Use Types Packs/Day Years Used Date Smoking Tobacco: Never Assessed Sex Assigned at Date Recorded Female 11/25/2020 4:39 PM CDT documented as of this encounter Plan of Treatment Not on filedocumented as of this encounter Visit Diagnoses Not on filedocumented in this encounter Care Teams Territory Account Representative Relationship Specialty Start Date End Date Jennifer Reid NP PCP - General 02/11/22 [address] [facility] [address] [place] [id number] Jennifer Reid NP Assigned PCP 02/18/21 [address] [place] [address] documented as of this encounter
--- OUTSIDE RECORDS SUMMARY | 2022-06-15 11:06 | XMS_ITS | Encounter Summary ---
:1955 Author Organization [place] Address [address] [facility] [place] [address] Care Team Providers Name Role Phone Jennifer Reid RESEARCH CONSULTANT Primary Care Provider Encounter Details Date Type Department Care Team Description 11/15/2018 Ambulatory - [facility] Jennifer Reid, [facility] [place] RESEARCH CONSULTANT [address] [address] [address], S, [facility] [address] [place] [address] [place], [place] [phone] [phone] (Work) [phone] Social History Tobacco Use Types Packs/Day Years Used Date Smoking Tobacco: Never Assessed Sex Assigned at Date Recorded Female 11/25/2020 4:39 PM CDT documented as of this encounter Plan of Treatment Not on filedocumented as of this encounter Visit Diagnoses Not on filedocumented in this encounter Care Teams Gluer And Slicer Hand Relationship Specialty Start Date End Date Jennifer Reid NP PCP - General 11/15/18 11/19/18 documented as of this encounter
--- OUTSIDE RECORDS SUMMARY | 2022-06-15 11:06 | XMS_ITS | Encounter Summary ---
:1955 Author Organization [place] Address [facility] [place] [address] Care Team Providers Name Role Phone Jennifer Reid NP Primary Care Provider Jennifer Reid NP Primary Care Provider Jagdeep Eng Primary Care Provider Gini Snow MD Primary Care Provider Reason for Visit Reason Comments Physical Encounter Details Date Type Department Care Team Description 07/06/2016 Office Visit - [facility] Juvenal Eng [address] [place] [address] Routine general medical examination at a health care facility; [facility] Provider, Historical Pure hypercholesterolemia; [place] Vitamin D deficiency; [address] [place] [address] [address] [place] [place] [address] Social History Tobacco Use Types Packs/Day Years Used Date Smoking Tobacco: Never Assessed Sex Assigned at Date Recorded Female 11/25/2020 4:39 PM CDT documented as of this encounter Last Filed Vital Signs Vital Sign Reading Time Taken Comments Blood Pressure - - Pulse - - Temperature - - Respiratory Rate - - Oxygen Saturation - - Inhaled Oxygen Concentration - - Weight 64.4 kg (142 lb) 07/06/2016 11:33 AM CDT Height 162.6 cm (5' 4) 07/06/2016 11:33 AM CDT Body Mass Index 24.37 07/06/2016 11:33 AM CDT documented in this encounter Progress Notes Jagdeep Eng - 07/06/2016 11:33 AM CDT Visit Vitals ??? BP 110/70 ??? Pulse 72 ??? Temp 97.8 ??F (36.6 ??C) ??? Ht 5' 4 (1.626 m) ??? Wt 142 lb (64.4 kg) ??? BMI 24.37 kg/m2 Cindy Duarte is a 61 y.o. female here for physical. She has no specific concerns about her health. She was recently in and saw the absorption plant operator helper and had what sounds like an atypical melanocytes removed from her right anterior solis. She is due for follow-up in approximately 10 days and will be getting further term follow-up every 6 months. She is restarting her exercise program. Her back symptoms are better after physical therapy and she is having less left leg symptoms. We reviewed heart disease prevention and cancer detection as well as immunizations and their side effects. Active Ambulatory Problems Diagnosis Date Noted ??? Vitamin D Deficiency ??? Essential Hypercholesterolemia ??? Allergic Rhinitis ??? Acute Otitis Media ??? Acute Bronchitis Resolved Ambulatory Problems Diagnosis Date Noted ??? No Resolved Ambulatory Problems Past Medical History Diagnosis Date ??? Allergic rhinitis, cause unspecified Past Surgical History Procedure Laterality Date ??? Tubal ligation ??? x4 Family History Problem Relation Age of Onset ??? Asthma Father ??? Prostate cancer Father ??? Colon cancer Paternal Grandmother ??? Coronary artery disease Maternal Grandfather ??? Coronary artery disease Maternal Grandmother ??? Coronary artery disease Paternal Grandfather ??? Arthritis Mother ??? Diabetes Mother Current Outpatient Prescriptions: ??? aspirin 81 MG EC tablet, Take 81 mg by mouth daily., Disp: , Rfl: ??? cephalexin (KEFLEX) 500 MG capsule, , Disp: , Rfl: ??? mometasone (NASONEX) 50 mcg/actuation nasal spray, Use 2 spray each nostril qd, Disp: 17 g, Rfl:5 ??? multivitamin (MULTIVITAMIN) per tablet, 1 tablet daily., Disp: , Rfl: ??? ibuprofen (ADVIL,MOTRIN) 600 MG tablet, Take 1 tablet (600 mg total) by mouth every 6 (six) hours as needed for pain., Disp: 60 tablet, Rfl: 2 No Known Allergies Immunization History Administered Date(s) Administered ??? DT (pediatric) 02/28/1996 ??? Hep A, Adult 07/06/2016 ??? Hep A, historic 02/21/2008 ??? Influenza, inj, historic 05/21/2010, 06/02/2016 ? ? Pneumo Conj 13-V (2010&after) 07/06/2016 ??? Td, historic 02/21/2008 ??? Tdap 02/21/2008 ??? ZOSTER 07/06/2016 Social History Social History ??? Marital status: Spouse name: N/A ??? Number of children: N/A ??? Years of education: N/A Occupational History ??? Not on file. Social History Main Topics ??? Smoking status: Never Smoker ??? Smokeless tobacco: Not on file ??? Alcohol use Yes ??? Drug use: Not on file ??? Sexual activity: Not on file Other Topics Concern ??? Not on file Social History Narrative Habits: She is a nonsmoker rare alcohol user Her review of systems all otherwise negative General Appearance: Alert, cooperative, no distress, appears stated age Head: Normocephalic, without obvious abnormality, atraumatic Eyes: PERRL, conjunctiva/corneas clear, EOM's intact, fundi benign, both eyes Ears: Normal TM's and external ear canals, both ears Nose: Nares normal, septum midline, mucosa normal, no drainage or sinus tenderness Throat: Lips, mucosa, and tongue normal; teeth and gums normal Neck: Supple, symmetrical, trachea midline, no adenopathy; thyroid: No enlargement/tenderness/nodules; no carotid bruit or JVD Back: Symmetric, no curvature, ROM normal, no CVA tenderness Lungs: Clear to auscultation bilaterally, respirations unlabored Chest wall: No tenderness or deformity; breast exam she has mild fibrocystic breast disease bilaterally otherwise normal Heart: Regular rate and rhythm, S1 and S2 normal, no murmur, rub or gallop Abdomen: Soft, non-tender, bowel sounds active all four quadrants, no masses, no organomegaly Genitalia: declined Rectal: declined Extremities: Extremities normal, atraumatic, no cyanosis or edema Pulses: 2+ and symmetric all extremities Skin: on her right anterior solis she has a wrap on her leg that started to remain until she sees dermatology remainder of her skin exam appears normal Lymph nodes: Cervical, supraclavicular, and axillary nodes normal Neurologic: CNII-XII intact. Normal strength, sensation and reflexes throughout Labs ordered Assessment: Gen. physical hypercholesterolemia vitamin D deficiency atypical melanocytes hyperplasialow back pain Plan: Okay for immunizations continue exercises per physical therapy follow-up per dermatology in follow up here for fasting labs otherwise as needed documented in this encounter Plan of Treatment Not on filedocumented as of this encounter Visit Diagnoses Diagnosis Routine general medical examination at a health care facility Pure hypercholesterolemia Vitamin D deficiency Unspecified vitamin D deficiency Atypical melanocytic hyperplasia Other dyschromia documented in this encounter Care Teams Media Monitor Relationship Specialty Start Date End Date Jennifer Reid NP PCP - General 10/12/18 11/02/18 Jennifer Reid NP PCP - General 11/15/18 11/19/18 Jagdeep Eng PCP - General 02/21/08 09/26/[address] [place] [address] Gini Snow MD PCP - General 09/27/18 10/11/18 documented as of this encounter
--- OUTSIDE RECORDS SUMMARY | 2022-06-15 11:06 | XMS_ITS | Encounter Summary ---
:1955 Author Organization [place] Address [address] [place] [address]. [place] [address] Care Team Providers Name Role Phone Jennifer Reid PRESCHOOL ASSISTANT DIRECTOR Unavailable Encounter Details Date Type Department Care Team Description 01/27/2021 Records - [facility] HE CONVERSION Scan, Provider Social History Tobacco Use Types Packs/Day Years Used Date Smoking Tobacco: Never Assessed Sex Assigned at Date Recorded Female 11/25/2020 4:39 PM CDT documented as of this encounter Plan of Treatment Not on filedocumented as of this encounter Visit Diagnoses Not on filedocumented in this encounter Care Teams Spray Painter Relationship Specialty Start Date End Date Jennifer Reid NP Assigned PCP 02/18/21 [address] [place] [address] documented as of this encounter
--- OUTSIDE RECORDS SUMMARY | 2022-06-15 11:06 | XMS_ITS | Encounter Summary ---
:1955 Author Organization [place] Address [address] [place] [address] Care Team Providers Name Role Phone Jennifer Reid NP Primary Care Provider Jennifer Reid NP Primary Care Provider Jagdeep Eng Primary Care Provider Gini Snow MD Primary Care Provider Encounter Details Date Type Department Care Team Description 07/26/2016 Ambulatory - [facility] Pure hyper cholesterolemia [facility] [address] [place] [address] [place] [address] Social History Tobacco Use Types Packs/Day Years Used Date Smoking Tobacco: Never Assessed Sex Assigned at Date Recorded Female 11/25/2020 4:39 PM CDT documented as of this encounter Plan of Treatment Not on filedocumented as of this encounter Procedures Procedure Name Priority Date/Time Associated Diagnosis Comme nts LIPID PROFILE Routine 07/26/2016 8:22 AM Results for this RADIOTELEGRAPH OPERATOR procedure are i n the results section . documented in this encounter Results (ABNORMAL) Lipid Profile (07/26/2016 8:22 AM RADIOTELEGRAPH OPERATOR) [facility] Method Time Signature Triglycerides 57 <=149 07/26/2016 mg/dL 3:03 PM RADIOTELEGRAPH OPERATOR Cholesterol 226 (H) <=199 07/26/2016 mg/dL 3:03 PM RADIOTELEGRAPH OPERATOR LDL Cholesterol 143 (H) <=129 07/26/2016 Calculated mg/dL 3:03 PM RADIOTELEGRAPH OPERATOR Direct Measure HDL 72 >=50 07/26/2016 mg/dL 3:03 PM RADIOTELEGRAPH OPERATOR Patient Fasting > Yes 07/26/2016 8hrs? 3:03 PM RADIOTELEGRAPH OPERATOR Specimen Anatomical Collection Method / Collection Time Recei jake Time (Source) Location / Volume Laterality Blood specimen Venipuncture / 07/26/2016 8:22 07/26/20 16 2:12 (specimen) Unknown AM RADIOTELEGRAPH OPERATOR PM RADIOTELEGRAPH OPERATOR Jagdeep Eng LAB - BLOOD ORDERABLES documented in this encounter Visit Diagnoses Diagnosis Pure hypercholesterolemia documented in this encounter Care Teams Angiography Technologist Relationship Specialty Start Date End Date Jennifer Reid NP PCP - General 10/12/18 11/02/18 Jennifer Reid NP PCP - General 11/15/18 11/19/18 Jagdeep Eng PCP - General 02/21/08 09/26/[address] [place] [address] Gini Snow MD PCP - General 09/27/18 10/11/18 documented as of this encounter
--- OUTSIDE RECORDS SUMMARY | 2022-06-15 11:06 | XMS_ITS | Encounter Summary ---
:1955 Author Organization [place] Address [address] [place] [address] Care Team Providers Name Role Phone Jennifer Reid NP Primary Care Provider Jennifer Reid NP Primary Care Provider Jagdeep Eng Primary Care Provider Gini Snow MD Primary Care Provider Jennifer Reid NP Unavailable Encounter Details Date Type Department Care Team Description 06/22/2018 Records - [facility] CONVERSION Provider, Andrzej aparicio Social History Tobacco Use Types Packs/Day Years Used Date Smoking Tobacco: Never Assessed Sex Assigned at Date Recorded Female 11/25/2020 4:39 PM CDT documented as of this encounter Plan of Treatment Not on filedocumented as of this encounter Procedures Procedure Name Priority Date/Time Associated Diagnosis Comme nts COLONOSCOPY - HIM SCAN 02/04/2021 documented in this encounter Results COLONOSCOPY - HIM SCAN (02/04/2021) Narrative This result has an attachment that is no t available. Historical Provider PROCEDURES documented in this encounter Visit Diagnoses Not on filedocumented in this encounter Care Teams Refuse Driver Relationship Specialty Start Date End Date Jennifer Reid NP PCP - General 10/12/18 11/02/18 Jennifer Reid NP PCP - General 11/15/18 11/19/18 Jagdeep Eng PCP - General 02/21/08 09/26/18 [facility] [address] [place] [address] [place] [address] Gini Snow MD PCP - General 09/27/18 10/11/18 Jennifer Reid, DANITZA Assigned PCP 02/18/21 [address] [place] [address] documented as of this encounter
--- OUTSIDE RECORDS SUMMARY | 2022-06-15 11:06 | XMS_ITS | Encounter Summary ---
:1955 Author Organization [place] Address [address] [place] [address] Care Team Providers Name Role Phone Unavailable Primary Care Provider Unavailable Encounter Details Date Type Department Care Team Description 01/16/2021 Hospital Encounter [facility] for screening [facility] Breast mammogram Center [facility] [place] [address] Social History Tobacco Use Types [...] Name Priority Date/Time Associated Diagnosis Comme nts CO SCREENING Routine 01/16/2021 4:38 PM Visit for screening Re sults for this DIGITAL BILATERAL CDT mammogram procedure are in the results section. documented in this encounter Results MA Screening Digital Bilateral (01/16/2021 4:38 PM CDT) Anatomical Region Laterality Modality Breast Bilateral Other Specimen (Source) Anatomical Location Collection Method / Collectio n Time Received Time / Laterality Volume Narrative 01/19/2021 1:43 PM CDT BILATERAL FULL FIELD DIGITAL SCREENING MAMMOGRAM Performed on: 01/16/21. Compared to: 11/19/2019 Mammo Screening Bilateral, 10/10/2018 Mammo Screening Bilateral, 08/26/2017 Mammo Screening Bilateral, and 06/03/2016 Mammo Screening Bilateral Findings: The breasts have scattered are as of fibroglandular densities. There is no radiographic evidence of malignancy. This study was evaluated with the assistance of Computer-Aided Detection. Routine screening mammogram in one year is recommended. ACR BI-RADS Category 1: Negative Procedure Note Josie Londono MD - 02/13/2021For matting of this note might be different from the original. BILATERAL FULL FIELD DIGITAL SCREENING M AMMOGRAM Performed on: 01/16/21. Compared to: 11/19/2019 Mammo Screening Bilateral, 10/10/2018 Mammo Screening Bilateral, 08/26/2017 Mammo Screening Bilateral, and 06/03/2016 Mammo Screening Bilateral Findings: The breasts have scattered are as of fibroglandular densities. There is no radiographic evidence of malignancy. This study was evaluated with the assistance of Computer-Aided Detection. Routine screening mammogram in one year is recommended. ACR BI-RADS Category 1: Negative Jennifer Reid NP [employer] MAMMOGRAPHY ORDERABLES documented in this encounter Visit Diagnoses Diagnosis Visit for screening mammogram Other screening mammogram documented in this encounter
--- OUTSIDE RECORDS SUMMARY | 2022-06-15 11:06 | XMS_ITS | Encounter Summary ---
:1955 Author Organization [place] Address [address] [place] [address] Care Team Providers Name Role Phone Unavailable Primary Care Provider Unavailable Encounter Details Date Type Department Care Team Description 12/03/2020 Ambulatory - [address] [phone] Social History Tobacco Use Types Packs/Day Years Used Date Smoking Tobacco: Never Assessed Sex Assigned at Date Recorded Female 11/25/2020 4:39 PM CDT documented as of this encounter Plan of Treatment Not on filedocumented as of this encounter Visit Diagnoses Not on filedocumented in this encounter
--- OUTSIDE RECORDS SUMMARY | 2022-06-15 11:06 | XMS_ITS | Encounter Summary ---
:1955 Author Organization [place] Address [address] [place] [address] Care Team Providers Name Role Phone Unavailable Primary Care Provider Unavailable Encounter Details Date Type Department Care Team Description 01/31/2021 Records - [facility] CONVERSION Provider, Histor ical Social History Tobacco Use Types Packs/Day Years Used Date Smoking Tobacco: Never Assessed Sex Assigned at Date Recorded Female 11/25/2020 4:39 PM CDT documented as of this encounter Plan of Treatment Not on filedocumented as of this encounter Procedures Procedure Name Priority Date/Time Associated Diagnosis Comme nts MAMMO MISC(FCIS) Routine 06/19/2005 12:00 AM Resu lts for this ORDER CDT procedure are i n the results section. documented in this encounter Results Mammo Misc Order (06/19/2005 12:00 AM CDT) Anatomical Region Laterality Modality Other Specimen (Source) Anatomical Location Collection Method / Collectio n Time Received Time / Laterality Volume Narrative 06/19/2005 12:00 AM CDT See Historical Hospital Medical Record f or documentation Procedure Note Provider, Historical - 01/31/2021Formatt ing of this note might be different from the original. See Historical Hospital Medical Record f or documentation Historical Provider IMG MAMMOGRAPHY ORDERABLES documented in this encounter Visit Diagnoses Not on filedocumented in this encounter
--- OUTSIDE RECORDS SUMMARY | 2022-06-15 11:06 | XMS_ITS | Encounter Summary ---
:1955 Author Organization [place] Address [address] [facility] [place] [address] Care Team Providers Name Role Phone Jennifer Reid NP Unavailable Jennifer Reid AGENT SPA DESK Primary Care Provider Encounter Details Date Type Department Care Team Description 12/25/2020 Records - [facility] Hi Lopez MD [facility] [address] [place] [id number] (Wo rk) Social History Tobacco Use Types Packs/Day Years Used Date Smoking Tobacco: Never Assessed Sex Assigned at Date Recorded Female 11/25/2020 4:39 PM CDT documented as of this encounter Plan of Treatment Not on filedocumented as of this encounter Visit Diagnoses Not on filedocumented in this encounter Care Teams Barrel Loader Relationship Specialty Start Date End Date Jennifer Reid NP PCP - General 02/11/22 [address] [facility] [address] [place] [address] Jennifer Reid NP Assigned PCP 02/18/21 [address] [place] [address] documented as of this encounter
--- OUTSIDE RECORDS SUMMARY | 2022-06-15 11:06 | XMS_ITS | Encounter Summary ---
:1955 Author Organization [place] Address [address] [facility] [place] [address] Care Team Providers Name Role Phone Jennifer Reid NP Unavailable Jennifer Reid SCREW REMOVER Primary Care Provider Encounter Details Date Type Department Care Team Description 12/04/2020 Records - [facility] Hi Lopez MD [facility] [address] [place], [place] [address] (Wo rk) Social History Tobacco Use Types Packs/Day Years Used Date Smoking Tobacco: Never Assessed Sex Assigned at Date Recorded Female 11/25/2020 4:39 PM CDT documented as of this encounter Plan of Treatment Not on filedocumented as of this encounter Visit Diagnoses Not on filedocumented in this encounter Care Teams Lens Grinder Relationship Specialty Start Date End Date Jennifer Reid NP PCP - General 02/11/22 [address] [facility] [address] [place] [address] Jennifer Reid NP Assigned PCP 02/18/21 [address] [place] [address] documented as of this encounter
--- OUTSIDE RECORDS SUMMARY | 2022-06-15 11:06 | XMS_ITS | Encounter Summary ---
:1955 Author Organization [place] Address [address] [facility] [place] [place] [address] Care Team Providers Name Role Phone Unavailable Primary Care Provider Unavailable Encounter Details Date Type Department Care Team Description 11/23/2018 Ambulatory - [facility] [place], Osteopenia of neck of femur, unspecified laterality; [facility] Devan Rodriguez NP Osteopenia with high risk of [place] [address] [place] [address] [address] [facility] [address] [facility] [address], [address] [place] [address] Nasim Prof [phone] Bl (Work) Dev[place] [phone] [address] (Fax) [phone] Social History Tobacco Use Types Packs/Day Years Used Date Smoking Tobacco: Never Assessed Sex Assigned at Date Recorded Female 11/25/2020 4:39 PM CDT documented as of this encounter Plan of Treatment Not on filedocumented as of this encounter Visit Diagnoses Diagnosis Osteopenia of neck of femur, unspecified laterality Osteopenia with high risk of fracture documented in this encounter
--- OUTSIDE RECORDS SUMMARY | 2022-06-15 11:06 | XMS_ITS | Encounter Summary ---
:1955 Author Organization [place] Address [facility] [place] [address] Care Team Providers Name Role Phone Jennifer Reid COUNSEL Primary Care Provider Jennifer Reid COUNSEL Primary Care Provider Jagdeep Eng Primary Care Provider Gini Snow MD Primary Care Provider Reason for Visit Reason Comments Other Encounter Details Date Type Department Care Team Description 09/01/2016 Communication - [facility] Juvenal Eng [address] Devan [place] [phone] Other [facility] Provider, Historical [address] [place] [address] S, [address] [place] [address] Social History Tobacco Use Types Packs/Day Years Used Date Smoking Tobacco: Never Assessed Sex Assigned at Date Recorded Female 11/25/2020 4:39 PM CDT documented as of this encounter Plan of Treatment Not on filedocumented as of this encounter Visit Diagnoses Diagnosis Chronic rhinitis documented in this encounter Care Teams [employer] Center Supervisor Relationship Specialty Start Date End Date Jennifer eRid NP PCP - General 10/12/18 11/02/18 Jennifer Reid NP PCP - General 11/15/18 11/19/18 Jagdeep Eng PCP - General 02/21/08 09/26/[address] [place] [address] Gini Snow MD PCP - General 09/27/18 10/11/18 documented as of this encounter
--- OUTSIDE RECORDS SUMMARY | 2022-06-15 11:06 | XMS_ITS | Encounter Summary ---
:1955 Author Organization [place] Address [address] [facility] [address] Care Team Providers Name Role Phone Unavailable Primary Care Provider Unavailable Reason for Visit Reason Comments Pt. Information/instruction Encounter Details Date Type Department Care Team Description 11/21/2018 Communication - [facility] [place] Pt. [facility] Devan Rodriguez NP Information/instruc [place] [address] [facility] [address] [facility] [address], [address] [facility] [place] [address] [facility] [phone] [place], [place] (Work) [phone] Social History Tobacco Use Types Packs/Day Years Used Date Smoking Tobacco: Never Assessed Sex Assigned at Date Recorded Female 11/25/2020 4:39 PM CDT documented as of this encounter Miscellaneous Notes Telephone Encounter - Tatyana Dahl - 11/22/2018 8:16 AM CDT Pt notified by voicemail. H.Greg, UROLOGIC NURSE Telephone Encounter - Jennifer Reid NP - 11/21/2018 5:06 PM CDT Prescription sent Telephone Encounter - Historical Provider - 11/21/2018 4:24 PM CDT Question following Office Visit When did you see your provider: 11/15/18 What is your question: She had asked for Mylaria medication but nothing was sent to the pharmacy. Isprovider sending it? Okay to leave a detailed message: Yes documented in this encounter Plan of Treatment Not on filedocumented as of this encounter Visit Diagnoses Not on filedocumented in this encounter
--- OUTSIDE RECORDS SUMMARY | 2022-06-15 11:06 | XMS_ITS | Encounter Summary ---
:1955 Author Organization [place] Address [facility] [place] [address] Care Team Providers Name Role Phone Unavailable Primary Care Provider Unavailable Encounter Details Date Type Department Care Team Description 02/07/2020 [facility] high [facility] Devan Baptiste MD risk of fracture [address] Prof FABRICIO Rodriguez [phone] Social History Tobacco Use Types Packs/Day Years Used Date Smoking Tobacco: Never Assessed Sex Assigned at Date Recorded Female 11/25/2020 4:39 PM CDT documented as of this encounter Plan of Treatment Not on filedocumented as of this encounter Visit Diagnoses Diagnosis Osteopenia with high risk of fracture documented in this encounter
--- OUTSIDE RECORDS SUMMARY | 2022-06-15 11:06 | XMS_ITS | Encounter Summary ---
:1955 Author Organization [place] Address [address] [facility] [place] [address] Care Team Providers Name Role Phone Unavailable Primary Care Provider Unavailable Reason for Visit Reason Comments Medication Refill Encounter Details Date Type Department Care Team Description 02/08/2020 Communication - [facility] [place], Medicat ion [facility] Devan Rodriguez NP [place] [address] [facility] [address] [facility] [address] [facility] [address], [address] [place] [address] Nasim Prof [phone] [facility] (Work) [place], [place] [phone] (Fax) [phone] Social History Tobacco Use Types Packs/Day Years Used Date Smoking Tobacco: Never Assessed Sex Assigned at Date Recorded Female 11/25/2020 4:39 PM CDT documented as of this encounter Miscellaneous Notes Telephone Encounter - Tatyana Dahl - 02/12/2020 2:50 PM CDT Please deny.. this was approved 02/07/20 #12 F 3 Telephone Encounter - Antionette Nguyen RN - 02/12/2020 12:07 PM CDT RN cannot approve Refill Request RN can NOT refill this medication Protocol failed and NO refill given. Antionette Nguyen, [facility] Connection Triage/Med Refill 02/12/2020 Requested Prescriptions Pending Prescriptions Disp Refills ??? alendronate (FOSAMAX) 70 MG tablet [Pharmacy Med Name: ALENDRONATE 70MG TABLETS] 4 tablet 0 Sig: TAKE 1 TABLET BY MOUTH EVERY 7 DAYS. TAKE IN THE MORNING ON AN EMPTY STOMACH WITH A FULL GLASSOF WATER, 30 MINUTES BEFORE FOOD Biphosphonates Refill Protocol Failed - 02/08/2020 5:27 PM Failed - PCP or prescribing provider visit in [...] OF WATER, 30 MINUTES BEFORE FOOD Dispense: 4 tablet; Refill: 0 If protocol passes may refill for 12 months if within 3 months of last provider visit (or a total of15 months). Failed - Serum creatinine in last 12 months Creatinine Date Value Ref Range Status 11/15/2018 0.80 0.60 - 1.10 mg/dL Final documented in this encounter Plan of Treatment Not on filedocumented as of this encounter Visit Diagnoses Diagnosis Osteopenia with high risk of fracture documented in this encounter
--- OUTSIDE RECORDS SUMMARY | 2022-06-15 11:07 | XMS_ITS | Encounter Summary ---
:1955 Author Organization [place] Address [facility] [place] [address] Care Team Providers Name Role Phone Jennifer Reid POWERHOUSE MECHANIC SUPERVISOR Primary Care Provider Jennifer Reid POWERHOUSE MECHANIC SUPERVISOR Primary Care Provider Jagdeep Eng Primary Care Provider Gini Snow MD Primary Care Provider Reason for Visit Reason Comments Appointment Encounter Details Date Type Department Care Team Description 03/03/2016 Communication - [facility] Juvenal Eng [address] Devan [place] [phone] Appointment [facility] Moran Provider, Historical [address] [place] [address], [address] [place] [address] Social History Tobacco Use Types Packs/Day Years Used Date Smoking Tobacco: Never Assessed Sex Assigned at Date Recorded Female 11/25/2020 4:39 PM CDT documented as of this encounter Plan of Treatment Not on filedocumented as of this encounter Visit Diagnoses Not on filedocumented in this encounter Care Teams Technical Photographer Relationship Specialty Start Date End Date Jennifer Reid NP PCP - General 10/12/18 11/02/18 Jennifer Reid NP PCP - General 11/15/18 11/19/18 Jagdeep Eng PCP - General 02/21/08 09/26/[address] [place] [address] Gini Snow MD PCP - General 09/27/18 10/11/18 documented as of this encounter
--- OUTSIDE RECORDS SUMMARY | 2022-06-15 11:07 | XMS_ITS | Encounter Summary ---
:1955 Author Organization [place] Address [address] [facility] [place] [address] Care Team Providers Name Role Phone Jennifer Reid NP Primary Care Provider Jennifer Reid NP Primary Care Provider Jagdeep Eng Primary Care Provider Gini Snow MD Primary Care Provider Reason for Visit Reason Comments Hip Pain HIP PAIN LEFT SIDE, GOES DOYLE N LEG, NOT PROBLEM WALKING BUT SITTING, HURTS, TINGLE. GOING DOWN LEFT SIDE .. Encounter Details Date Type Department Care Team Description 04/22/2016 Office Visit - [facility] Bailey Rasmussen Sciatica; [facility] [address] [place] [address] Low back strain, initial enc ounter [address] [facility] [address] Arnold Mendo[address], [address] [place] Prof [place] [facility] [phone] Social History Tobacco Use Types Packs/Day Years Used Date Smoking Tobacco: Never Assessed Sex Assigned at Date Recorded Female 11/25/2020 4:39 PM CDT documented as of this encounter Last Filed Vital Signs Vital Sign Reading Time Taken Comments Blood Pressure - - Pulse - - Temperature - - Respiratory Rate - - Oxygen Saturation - - Inhaled Oxygen Concentration - - Weight 63.5 kg (140 lb) 04/22/2016 4:31 PM CDT Height 163.8 cm (5' 4.5) 04/22/2016 4:31 PM CDT Body Mass Index 23.66 04/22/2016 4:31 PM CDT documented in this encounter Progress Notes Bailey Rasmussen - 05/01/2016 1:33 PM CDT PROGRESS NOTE SUBJECTIVE: Cindy Duarte is a 61 y.o. female Chief Complaint Patient presents with ??? Hip Pain HIP PAIN LEFT SIDE, GOES DOWN LEG, NOT PROBLEM WALKING BUT SITTING, HURTS, TINGLE. GOING DOWN LEFT SIDE .. patient has pain on the left side. She thinks that it started with back spasm the end of February. She was wearing flats but then moved to a shoe that had a heel. She was seen by Dr. Uriostegui and prescribed a muscle relaxer and it worked. Then she traveled to [place] went to [facility]. They did a lot of walking and cobblestone. She felt fine when she was walking but when she sits it hurts themost. She has pain that goes down almost to the knee that never below the knee. She denies any muscle weakness in her leg. No bowel or bladder symptoms. Patient Active Problem List Diagnosis ??? Vitamin D Deficiency ??? Essential Hypercholesterolemia ??? Allergic Rhinitis ??? Acute Otitis Media ??? Acute Bronchitis Current Outpatient Prescriptions Medication Sig Dispense Refill ??? aspirin 81 MG EC tablet Take 81 mg by mouth daily. ??? ibuprofen (ADVIL,MOTRIN) 600 MG tablet Take 1 tablet (600 mg total) by mouth every 6 (six) hoursas needed for pain. 60 tablet 2 ??? mometasone (NASONEX) 50 mcg/actuation nasal spray Use 2 spray each nostril qd 17 g 5 ??? multivitamin (MULTIVITAMIN) per tablet 1 tablet daily. ??? cyclobenzaprine (FLEXERIL) 5 MG tablet Take 1 tablet (5 mg total) by mouth every 8 (eight) hoursas needed for muscle spasms. 30 tablet 1 ??? predniSONE (DELTASONE) 50 MG tablet 1 tab PO daily for 5 days 5 tablet 0 ??? traMADol (ULTRAM) 50 mg tablet Take 1 tablet (50 mg total) by mouth every 8 (eight) hours as needed for pain or severe pain (7-10). Can take with OTC 325 mg Tylenol 15 tablet 0 No current facility-administered medications for this visit. History Smoking Status ??? Never Smoker Smokeless Tobacco ??? Not on file REVIEW OF SYSTEMS: Denies radiation, saddle anesthesia, numbness/weakness, loss of bowel/bladder control. OBJECTIVE: Vitals: 04/22/16 1631 BP: 114/78 Pulse: 84 Weight: 142 lb (64.4 kg) Wt Readings from Last 3 Encounters: 04/27/16 142 lb (64.4 kg) 04/22/16 140 lb (63.5 kg) 03/04/16 141 lb (64 kg) Body mass index is 23.66 kg/(m^2). Physical Exam: GENERAL APPEARANCE: A&A, NAD, well hydrated, well nourished SKIN: Normal skin turgor, no lesions/rashes EARS: TM's normal, bedolla with nl light reflex OROPHARYNX: without erythema, no post nasal drainage or thrush NECK: Supple, without lymphadenopathy, no thyroid mass CV: RRR, no M/G/R LUNGS: CTAB, normal respiratory effort ABDOMEN: S&NT, no masses, no organomegaly EXTREMITY: no edema, Back: No midline tenderness, sensory intact to light touch, reflexes symmetric bilaterally, strength 5/5, no saddle anesthesia, FROM. NEURO: no gross deficits PSYCHIATRIC; Mood appropriate, memory intact ASSESSMENT/PLAN: 1. Sciatica I'm recommending referral to spine care because of the persistent nature of this problem although itappears that she should do well with conservative management given she has no pain below her knee. Patient agrees with the plan. Low back exercises are reviewed carefully with the patient - Ambulatory referral to Sp[facility] Care 2. Low back strain, initial encounter The visit lasted a total of 25 minutes face to face with the patient. Over 50% of the time spent counseling and educating the patient about all of the above. Bailey Rasmussen MD documented in this encounter Plan of Treatment Not on filedocumented as of this encounter Visit Diagnoses Diagnosis Sciatica Low back strain, initial encounter documented in this encounter Care Teams Executive Manager Relationship Specialty Start Date End Date Jennifer Reid NP PCP - General 10/12/18 11/02/18 Jennifer Reid NP PCP - General 11/15/18 11/19/18 Jagdeep Eng PCP - General 02/21/08 09/26/[address] [place] [address] Gini Snow MD PCP - General 09/27/18 documented as of this encounter
--- OUTSIDE RECORDS SUMMARY | 2022-06-15 11:07 | XMS_ITS | Encounter Summary ---
:1955 Author Organization [place] Address [address] [place] [address] Care Team Providers Name Role Phone Jennifer Reid NP Primary Care Provider Jennifer Reid NP Primary Care Provider Jagdeep Eng Primary Care Provider Gini Snow MD Primary Care Provider Encounter Details Date Type Department Care Team Description 05/24/2016 Office Visit - [facility] Provider, Radicula r syndrome of left lower extremity; [facility] Historical Muscle weakne ss (generalized) Services [address] [phone] Social History Tobacco Use Types Packs/Day Years Used Date Smoking Tobacco: Never Assessed Sex Assigned at Date Recorded Female 11/25/2020 4:39 PM CDT documented as of this encounter Progress Notes Magdalena Garsia PT - 05/24/2016 10:46 AM CDT Images from the original note were not included. Progress Notes by Magdalena Garsia PT at 05/24/2016 10:46 AM Author: Magdalena Garsia PT Service: -- Author Type: Physical Therapist Filed: 05/24/2016 2:03 PM Encounter Date: 05/24/2016 Status: Signed Oven Worker: Magdalena Garsia PT (Physical Therapist) [facility] Lumbo-Pelvic FOLLOW UP Patient Name: Cindy Duarte Date of evaluation: 05/24/2016 Referral Diagnosis: L radicular pain Referring provider: Eliud Lau, * Visits: 2/6 [facility] 20 visits. Visit Diagnosis: ICD-10-CM 1. Radicular syndrome of left lower extremity M54.10 2. Muscle weakness (generalized) M62.81 Assessment: Demonstrates tension in B glutes and relative weakness. Pt notes decreased pain at lateral L LE andrelief of numbness and tingling in L lower leg with exercising and manual techniques this day from 02/12 to 09/14. Pt. is appropriate for skilled PT intervention [...] review exercises, backwards walking, hip extension Subjective: Pain meds only had to take 3x When walking longer and with prolonged sitting. 01/12, 09/14 after exercise Functional limitations are described as occurring with: - sitting a - standing - prolonged positioning Objective: Treatment Today TREATMENT MINUTES COMMENTS Evaluation Self-care/ Home management Manual therapy 10 MFR to Prone L medial ITB and lateral HS Neuromuscular Re-education Therapeutic Activity Therapeutic Exercises 15 Backwards walking, backwards marching Verbally reviewed HEP Gait training Modality Total 25 Blank areas are intentional and mean the treatment did not include these items. HEP: Magdalena Garsia 05/24/2016 11:36 AM documented in this encounter Plan of Treatment Not on filedocumented as of this encounter Visit Diagnoses Diagnosis Radicular syndrome of left lower extremi ty Muscle weakness (generalized) documented in this encounter Care Teams Assistant Director Of Financial Aid Relationship Specialty Start Date End Date Jennifer Reid NP PCP - General 10/12/18 11/02/18 Jennifer Reid NP PCP - General 11/15/18 11/19/18 Jagdeep Eng PCP - General 02/21/08 09/26/[address] [place] [address] Gini Snow MD PCP - General 09/27/18 10/11/18 documented as of this encounter
--- OUTSIDE RECORDS SUMMARY | 2022-06-15 11:07 | XMS_ITS | Encounter Summary ---
:1955 Author Organization [place] Address [facility] [place] [address] Care Team Providers Name Role Phone Jagdeep Eng Primary Care Provider Encounter Details Date Type Department Care Team Description 06/03/[address] [facility] Richard Eng [address] [place], [place] [id number] Visit for screening [facility] Breast Provider, [facility] mammogram Center [id number] [place] [address] Social History Tobacco Use Types [...] Associated Diagnosis Comme nts MA SCREENING Routine 06/03/2016 3:46 PM Visit for screening Re sults for this DIGITAL BILATERAL CDT mammogram procedure are in the results section. documented in this encounter Results MA Screening Digital Bilateral (06/03/2016 3:46 PM CDT) Anatomical Region Laterality Modality Breast Bilateral Other Specimen (Source) Anatomical Location Collection Method / Collectio n Time Received Time / Laterality Volume Narrative 06/03/2016 3:51 PM CDT BILATERAL FULL FIELD DIGITAL SCREENING MAMMOGRAM Performed on: 06/03/16. Compared to: 09/19/2014 Mammo Screening Bilateral, and 08/28/2013 Mammo Screening Bilateral Findings: The breasts have scattered are as of fibroglandular densities. There is no radiographic evidence of mal ignancy. This study was evaluated with the assistance of Computer-Aided De tection. Continue routine screening mammogram as recommended. ACR BI-RADS Category 1: Negative Procedure Note Lacho Roy MD - 02/08/2021Formatt ing of this note might be different from the original. BILATERAL FULL FIELD DIGITAL SCREENING MAMMOGRAM Performed on: 06/03/16. Compared to: 09/19/2014 Mammo Screening Bilateral, and 08/28/2013 Mammo Screening Bilateral Findings: The breasts have scattered are as of fibroglandular densities. There is no radiographic evidence of mal ignancy. This study was evaluated with the assistance of Computer-Aided De tection. Continue routine screening mammogram as recommended. ACR BI-RADS Category 1: Negative Jagdeep Eng IM MAMMOGRAPHY ORDERABLES documented in this encounter Visit Diagnoses Diagnosis Visit for screening mammogram Other screening mammogram documented in this encounter Care Teams Lease Administrator Relationship Specialty Start Date End Date Jagdeep Eng PCP - General 02/21/08 09/26/[address] [place] [address] documented as of this encounter
--- OUTSIDE RECORDS SUMMARY | 2022-06-15 11:07 | XMS_ITS | Encounter Summary ---
:1955 Author Organization [place] Address [address] [place] [address] Care Team Providers Name Role Phone Jennifer Reid NP Primary Care Provider Jennifer Reid NP Primary Care Provider Jagdeep Eng Primary Care Provider Gini Snow MD Primary Care Provider Encounter Details Date Type Department Care Team Description 06/04/2016 Office Visit - [facility] Provider, Radicula r syndrome of left lower extremity; [facility] Rehabilitation Historical Muscle weakne ss (generalized) Services [address] [phone] Social History Tobacco Use Types Packs/Day Years Used Date Smoking Tobacco: Never Assessed Sex Assigned at Date Recorded Female 11/25/2020 4:39 PM CDT documented as of this encounter Progress Notes Magdalena Garsia PT - 06/04/2016 11:34 AM CDT Images from the original note were not included. Progress Notes by Magdalena Garsia PT at 06/04/2016 11:34 AM Author: Magdalena Garsia PT Service: -- Author Type: Physical Therapist Filed: 06/04/2016 1:52 PM Encounter Date: 06/04/2016 Status: Signed Tobacco Packer: Magdalena Garsia PT (Physical Therapist) [facility] Lumbo-Pelvic FOLLOW UP Patient Name: Cindy Duarte Date of evaluation: 06/04/2016 Referral Diagnosis: L radicular pain Referring provider: Jagdeep Eng MD Visits: 11/08 [facility] visits. Visit Diagnosis: ICD-10-CM 1. Radicular syndrome of left lower extremity M54.10 2. Muscle weakness (generalized) M62.81 Assessment: Demonstrates anterior pelvic and decrease in radicular symptoms with Jose posterior pelvic tilts. Pt. is appropriate for skilled PT intervention [...] exercises, backwards walking, hip extension Subjective: Pain is less in the back just a numbness that is in posterior lateral aspect of L LE. Functional limitations are described as occurring with: - sitting a - standing - prolonged positioning Objective: Treatment Today TREATMENT MINUTES COMMENTS Evaluation Self-care/ Home management Manual therapy 5 MFR to L hip flexor Neuromuscular Re-education Therapeutic Activity Therapeutic Exercises 23 HF stretch with PPT Seated PPT for sitting in meetings Jose extension with B IR x 5 reps x 5 sets- pt noted decrease in L LE numbness TA bracing Ankles taps Gait training Modality Total 28 Blank areas are intentional and mean the treatment did not include these items. HEP: Magdalena Garsia 06/04/2016 11:36 AM documented in this encounter Plan of Treatment Not on filedocumented as of this encounter Visit Diagnoses Diagnosis Radicular syndrome of left lower extremi ty Muscle weakness (generalized) documented in this encounter Care Teams Conference Center Coordinator Relationship Specialty Start Date End Date Jennifer Reid NP PCP - General 10/12/18 11/02/18 Jennifer Reid NP PCP - General 11/15/18 11/19/18 Jagdeep Eng PCP - General 02/21/08 09/26/[address] [place] [address] Gini Snow MD PCP - General 09/27/18 10/11/18 documented as of this encounter
--- OUTSIDE RECORDS SUMMARY | 2022-06-15 11:07 | XMS_ITS | Encounter Summary ---
:1955 Author Organization [place] Address [address] [place] [address] Care Team Providers Name Role Phone Jennifer Reid ASSISTANT STORE DIRECTOR Primary Care Provider Jennifer Reid NP Primary Care Provider Jagdeep Eng Primary Care Provider Gini Snow MD Primary Care Provider Jennifre Reid NP Unavailable Jennifer Reid NP Primary Care Provider Encounter Details Date Type Department Care Team Description 05/17/2016 Records - [facility] HE CONVERSION Scan, Non-Provider Social History Tobacco Use Types Packs/Day Years Used Date Smoking Tobacco: Never Assessed Sex Assigned at Date Recorded Female 11/25/2020 4:39 PM CDT documented as of this encounter Plan of Treatment Not on filedocumented as of this encounter Visit Diagnoses Not on filedocumented in this encounter Care Teams Digital Content Coordinator Relationship Specialty Start Date End Date Jennifer Reid NP PCP - General 10/12/18 11/02/18 Jennifer Reid NP PCP - General 11/15/18 11/19/18 Jagdeep Eng PCP - General 02/21/08 09/26/[address] [place] [id number] Gini Snow MD PCP - General 09/27/18 10/11/18 Jennifer Reid NP PCP - General 02/11/22 [address] [facility] [address] [place] [id number] Jennifer Reid NP Assigned PCP 02/18/21 [address] [place] [id number] documented as of this encounter
--- OUTSIDE RECORDS SUMMARY | 2022-06-15 11:07 | XMS_ITS | Encounter Summary ---
:1955 Author Organization [place] Address [address] [place] [address] Care Team Providers Name Role Phone Jagdeep Eng Roxana Primary Care Provider Reason for Visit Reason Comments Back Pain Encounter Details Date Type Department Care Team Description 04/27/2016 Hospital Encounter [facility] Meghna Rasmussen Left lumbar Spine and [address] [place] radiculopathy Neurosurgery [address] [phone] Social History Tobacco Use Types Packs/Day Years [...] - - Weight 64.4 kg (142 lb) 04/27/2016 1:43 PM CDT Height - - Body Mass Index 24 04/22/2016 4:31 PM CDT documented in this encounter Medications at Time of Discharge Medication Sig Dispensed Refills Start Date End Date aspirin 81 MG EC tablet [ASPIRIN 81 MG EC 0 07/07 TABLET] Take 81 mg by mouth daily. multivitamin (MULTIVITAMIN) [MULTIVITAMIN 0 10/13 per tablet (MULTIVITAMIN) PER TABLET] 1 tablet daily. documented as of this encounter Progress Notes Eliud Lau PA-C - 04/27/2016 2:55 PM CDT Assessment/Plan: Diagnoses and all orders for this visit: Left lumbar radiculopathy - predniSONE (DELTASONE) 50 MG tablet; 1 tab PO daily for 5 days Dispense: 5 tablet; Refill: 0 - Ambulatory referral to Physical Therapy - traMADol (ULTRAM) 50 mg tablet; Take 1 tablet (50 mg total) by mouth every 8 (eight) hours as needed for pain or severe pain (7-10). Can take with OTC 325 mg Tylenol Dispense: 15 tablet; Refill: 0 Discussion: This is a 61 y.o. healthy female presents with left lumbar radiculopathy for about 1-1/2 months. Patient has decrease left L5 dermatome. Otherwise, patient is neurologically intact and no focal weakness. She has no red flag symptoms. Patient has classic sign of left L5 radiculopathy with a history of acute back pain. She is benefited from 600 mg ibuprofen. MAYDA: 20 WHO-F: 17 PLAN: This was a shared treatment plan. Patient fully understands the nature of the problem. DIAGNOSTIC: No imaging at this time. If the patient symptoms did not improve or worsen, I will order a lumbar MRI. REFERRAL: No referrals. INTERVENTIONAL PAIN MANAGEMENT: Patient may be a candidate for a left L5-S1 TFESI if she does not benefit from conservative care. PHYSICAL THERAPY: 4-6 visits of physical therapy at [facility] in [place] is prescribed. MEDICATIONS: 50 mg of prednisone daily for 5 days to decrease the inflammation in her right leg and pain. Patientwas instructed not to take any ibuprofen while on this medicine. 50 mg tramadol as prescribed for 5 days only to be taking 1 tablet 3 times a day as needed for pain. She can resume back to 600 mg ibuprofen which was prescribed by her PCP after she finished the oral prednisone. HOME INSTRUCTION: Instructed patient to apply ice 3-4 times a day, 10-15 minutes at a time. PATIENT EDUCATION: Educated the patient on her condition and treatment plan. The patient is in agreement with the above plan. All questions were answered. FOLLOW-UP: Patient will follow up with the nurse call in 1 week for checkup call. Patient can come in for office visit if she does not get any relief or her symptoms worsen. 40 minutes of total visit time was spent face to face with the patient today 60% of the visit was spent on counseling, education, and coordinating care. This note has been dictated using voice recognition software. Any grammatical or context distortionsare unintentional and inherent to the software Eliud Lau DC, MARY, PAEbenezer History of Present Ilness: Cindy Duarte is a 61 y.o. female comes to [facility] for an initial evaluation of left leg pain upon the requests of Bailey Rasmussen MD . She reports that in February she started having muscle spasm in her low back which led her into her see Dr Major. She equates that she was wearing high heel shoes and 7 months status post left hallux fusion. She was prescribed 600 mg ibuprofen and 5 mg cyclobenzaprine which she had resolution of her back spasm for about 2 days. 2 weeks later, she started having some left back pain that progressed radiating pain down the lateral aspect of her leg and paresthesia on the lateral aspect of the calf and foot. Her pain is 8/10 intermittent which is aggravated when she sits primarily and standing. Her pain is better if she walks. She denies any weakness in her left leg. She does not have any urinary/bowel incontinence. She benefited from 600 mg ibuprofen. She was given some home stretches by her primary care doctor which helps. She reports that she has not had any history of chronic back pain or leg symptoms. PAST MEDICAL HISTORY: Past Medical History Diagnosis Date ??? Allergic rhinitis, cause unspecified ??? Pure hypercholesterolemia ??? Vitamin D deficiency Past Surgical History Procedure Laterality Date ??? Tubal ligation ??? x4 Current Outpatient Prescriptions on File Prior to Encounter Medication Sig Dispense Refill ??? aspirin 81 MG EC tablet Take 81 mg by mouth daily. ??? cyclobenzaprine (FLEXERIL) 5 MG tablet Take 1 tablet (5 mg total) by mouth every 8 (eight) hoursas needed for muscle spasms. 30 tablet 1 ??? ibuprofen (ADVIL,MOTRIN) 600 MG tablet Take 1 tablet (600 mg total) by mouth every 6 (six) hoursas needed for pain. 60 tablet 2 ??? mometasone (NASONEX) 50 mcg/actuation nasal spray Use 2 spray each nostril qd 17 g 5 ??? multivitamin (MULTIVITAMIN) per tablet 1 tablet daily. No current facility-administered medications on file prior to encounter. FAMILY MEDICAL HISTORY: family history includes Arthritis in her mother; Asthma in her father; Colon cancer in her paternal grandmother; Coronary artery disease in her maternal grandfather, maternal grandmother, and paternal grandfather; Diabetes in her mother; Prostate cancer in her father. SOCIAL HISTORY: Social History Substance Use Topics ??? Smoking status: Never Smoker ??? Smokeless tobacco: None ??? Alcohol use None REVIEW OF SYMPTOMS: All systems are negative except: Difficult sleeping and gained 10 pounds. Please refer to HPI. EVALUATION TO DATE: No imaging of her lower back. TREATMENT TO DATE: Patient was given 600 mg ibuprofen and 5 mg cyclobenzaprine which helped out her back spasm. 600 mg ibuprofen helps out her pain in her leg. Home exercises helps her pain as well. Patient has not seen a physical therapist, chiropractor or had any injection. Objective: Constitutional: slim built. Not in acute distress. Psychiatric: Judgment and insight are intact. Alert and oriented. Mood and affect are appropriate. HEAD: NC/AT Muscloskeletal Gait: ambulatory. normal gait. Able to heel and toe walk without difficulties. Motor Volition:able to go from a sitting to standing position and sitting on the table without difficulities. Lumbar Spine: Lumber ROM is restricted upon flexion and pain caused by flexion and extension. Foot evertors 5/5, Foot invertors 5/5, Foot dorsiflexor 5/5, Foot plantarflexors 5/5, Leg extensors 5/5, Leg flexors 5/5, Hip abductor 5/5, Hip adductor 5/5. Straight leg Raise is negative. Palpatory tenderness left L5-S1 paraspinal, spinous processes L5-S1 and right L5-S1. No paraspinal palpatory tendernessor hypertonicity. Hip: Kobi [place] Test is positive on the left causing lower back pain. Barnard Test is negative. Hip ROM is full without pain. No tenderness of posterior thigh or calf. NEUROLOGIC: Bakinski test is negative. Deep tendon reflexes of Patella 2/4 and Achilles 2/4 and symmetrical. Left L5 dermatome decrease. All other dermatomes are intact.. Muscle tone is normal. Clonus is negative. LYMPHATIC: No groin adenopathy. SKIN: No lesion of the epidermis or subcutaneous tissue of the lumbar spine. PULMONARY: Effort is normal. ABDOMEN: flat habitus.Soft and nontender in all four quadrants. No palpable masses felt. documented in this encounter Plan of Treatment Not on filedocumented as of this encounter Visit Diagnoses Diagnosis Left lumbar radiculopathy Thoracic or lumbosacral neuritis or radi culitis, unspecified documented in this encounter Care Teams Airfield Defence Guard Relationship Specialty Start Date End Date Jagdeep Eng PCP - General 02/21/08 09/26/[address] [place], [place] [phone] documented as of this encounter
--- OUTSIDE RECORDS SUMMARY | 2022-06-15 11:07 | XMS_ITS | Encounter Summary ---
:1955 Author Organization [place] Address [address] [place] [address] Care Team Providers Name Role Phone Jennifer Reid NP Primary Care Provider Jennifer Reid NP Primary Care Provider Jagdeep Eng Primary Care Provider Gini Snow MD Primary Care Provider Encounter Details Date Type Department Care Team Description 05/17/2016 Office Visit - [facility] Provider, Radicula r syndrome of left lower extremity; [facility] Rehabilitation Historical Muscle weakne ss (generalized) Services [address] [phone] Social History Tobacco Use Types Packs/Day Years Used Date Smoking Tobacco: Never Assessed Sex Assigned at Date Recorded Female 11/25/2020 4:39 PM CDT documented as of this encounter Progress Notes Magdalena Garsia PT - 05/17/2016 11:36 AM CDT Images from the original note were not included. Progress Notes by Magdalena Garsia PT at 05/17/2016 11:36 AM Author: Magdalena Garsia PT Service: -- Author Type: Physical Therapist Filed: 05/17/2016 2:02 PM Encounter Date: 05/17/2016 Status: Signed Health Care Manager: Magdalena Garsia PT (Physical Therapist) [facility] Lumbo-Pel[facility] Initial Evaluation Patient Name: Cindy Duarte Date of evaluation: 05/17/2016 Referral Diagnosis: L radicular pain Referring provider: Eliud Lau, * Visits: 09/10 [facility] visits. Visit Diagnosis: ICD-10-CM 1. Radicular syndrome of left lower extremity M54.10 2. Muscle weakness (generalized) M62.81 Assessment: Demonstrates tension in B glutes and R QL. Pt notes decreased pain at lateral L LE and relief of numbness and tingling in L lower leg with stretching and manual techniques this day. Pt. is appropriate for skilled PT intervention [...] No Barriers. Plan / Patient Instructions: Plan of Care: Authorization / Certification Start Date: 05/17/16 Authorization / Certification End Date: 08/15/16 Authorization / Certification Number of Visits: 6 Communication with: Referral Source Patient Related Instruction: Nature of Condition;Treatment plan and rationale;Posture;Body mechanics Times per Week: 1-2 Number of Weeks: 3 Number of Visits: 6 Therapeutic Exercise: ROM;Stretching;Strengthening Neuromuscular Reeducation: kinesio tape;posture;balance/proprioception;TNE;core;postural yazdanism Manual Therapy: soft tissue mobilization;myofascial release;joint mobilization;muscle energy;strain counterstrain Gait Training: as indicated Plan for next visit: MFR to Glutes, review exercises, backwards walking, hip extension Subjective: History of Present Illness: Cindy is a 61 y.o. female who presents to therapy today with complaints of L hip and LE. Location(s) L low back and LE to the knee; tingling from the knee down. - walking feels fine - sitting and standing prolonged hurts Date of onset end of February Foot surgery last July on L Spasm on the L side with wearing heels Symptoms are intermittent and not improving. Intermittant with medication. - 5 days of Prednisone then alternate with ibeprophen and tylenol and trimadol - Heat helps Walking every day for 45 min History of similar symptoms/injury: 15+ years ago back spasm high in thoracic after running Previous level of function: not running Current activities: walking and would like to get back Curves Pain Ratin on L lateral leg Pain rating at best: 0 with Medication and walking - has a standing desk only has to sit for meetings Pain rating at worst: 9 with sleeping 3+ hours (back or side sleeper) Pain description: dull, pain and tingling Functional limitations are described as occurring with: - sitting a - standing - prolonged positioning Objective: Note: Items left blank indicates the item was not performed or not indicated at the time of the evaluation. Patient Outcome Measures : No Data Recorded Scores range from 0-100%, where a score of 0% represents minimal pain and maximal function. The minimal clinically important difference is a score reduction of 12%. Examination 1. Radicular syndrome of left lower extremity 2. Muscle weakness (generalized) Precautions/Restrictions: None Involved side: Left Posture Observation: -Sitting: normal - Standing: genu valgus B, L scapular winging T 10 posterior protrusion Gait Observations: Decreased push off with L Lumbar ROM: Date: *Indicate scale AROM AROM AROM Lumbar Flexion WNL Lumbar Extension WNL Right Left Right Left Right Left Lumbar Sidebending WNL WNL Lumbar Rotation WNL WNL Thoracic Flexion Thoracic Extension Thoracic Sidebending Thoracic Rotation Lower Extremity Strength: Within normal limits unless otherwise indicated Date: LE strength/5 Right Left Right Left Right Left Hip Flexion (L1-3) 4 4 Hip Extension (L5-S1) 4+ 4+ Hip Abduction (L4-5) 4+ Hip Adduction (L2-3) 4 4 Hip External Rotation Hip Internal Rotation Knee Extension (L3-4) Knee Flexion Ankle Dorsiflexion (L4-5) Great Toe Extension (L5) Ankle Plantar flexion (S1) Abdominals Lumbar Special Tests: Lumbar Special Tests Right Left SI Tests Right Left Quadrant test SI Compression - - Straight leg raise - - SI Distraction - - Crossover response POSH Test Slump Sacral Thrust Sit-up test FADIR Trunk extensor endurance test Resisted Abduction Prone instability test Other: Pubic shotgun Other: Passive Mobility - Joint Integrity: PA Testing: negative for pain throughout, hypo mobile through thoracic spine with posterior protrusion Palpation: tension throughout glute max and med B, and L QL; Treatment Today TREATMENT MINUTES COMMENTS Evaluation 20 Low back and L LE Self-care/ Home management Manual therapy 10 MFR to glute med and max and L QL Neuromuscular Re-education Therapeutic Activity Therapeutic Exercises 25 See Below Gait training Modality Total 55 Blank areas are intentional and mean the treatment did not include these items. HEP: Magdalena Garsia 05/17/2016 11:36 AM documented in this encounter Plan of Treatment Not on filedocumented as of this encounter Visit Diagnoses Diagnosis Radicular syndrome of left lower extremi ty Muscle weakness (generalized) documented in this encounter Care Teams Medtronics Technician Relationship Specialty Start Date End Date Jennifer Reid NP PCP - General 10/12/18 11/02/18 Jennifer Reid NP PCP - General 11/15/18 11/19/18 Jagdeep Eng PCP - General 02/21/08 09/26/[address] [place], [place] [address] Gini Snow MD PCP - General 09/27/18 10/11/18 documented as of this encounter
--- OUTSIDE RECORDS SUMMARY | 2022-06-15 11:07 | XMS_ITS | Encounter Summary ---
:1955 Author Organization [place] Address [facility] [place] [address] Care Team Providers Name Role Phone Jennifer Reid NP Primary Care Provider Jennifer Reid NP Primary Care Provider Jagdeep Eng Primary Care Provider Gini Snow MD Primary Care Provider Reason for Visit Reason Comments Spasms lower back pain \T\ spams si nce tues after wearing an heels for 4 hours, cant bend over Encounter Details Date Type Department Care Team Description 03/04/2016 Office Visit - [facility] Edel Major MD [address] [place] [address] Low back strain, [facility] Provider, Historical initial encounter [address], [address] [place] [address] Social [...] - - Weight 64 kg (141 lb) 03/04/2016 11:46 AM CDT Height 163.8 cm (5' 4.5) 03/04/2016 11:46 AM CDT Body Mass Index 23.83 03/04/2016 11:46 AM CDT documented in this encounter Progress Notes Edel Major MD - 03/08/2016 12:31 PM CDT Assessment: This is a 60 y.o.female who presents for evaluation of acute back pain and muscle spasm. 1. Low back strain, initial encounter ibuprofen (ADVIL,MOTRIN) 600 MG tablet cyclobenzaprine (FLEXERIL) 5 MG tablet Plan: I have prescribed Flexeril 5 mg and she can use 1 or 2 tablets up to every 8 hours as tolerated. I cautioned her to never use more than 2400 mg of ibuprofen in 24 hours, and never more than 3000 mg of Tylenol in 24 hours. I gave her a prescription of ibuprofen 600 mg which she can use every 6 hours as needed. Since the back pain was not the result of an injury, I think that applying warm packs would be more beneficial and she feels like she feels better with those. Follow up as needed if not improving. Subjective: This is a 60 y.o.female who presents for evaluation of low back pain and spasm. 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 Afterwards she was told that she should never wear high heels and only wear short heels. 2 days ago she wore short heels for the first time since her surgery. 4 hours later she developed low back pain. She changed to flat shoes but her pain kept getting worse. Now she can't bend down without having pain and spasm in her low back. Yesterday she was unable to get out of bed at first. She denies any injury or activity that might have triggered it. She does not have tingling, numbness, or weakness in her lower extremities. The pain does not radiate from the lower back. It is located bilaterally. She says 10 years ago she was running in September so she was cold, and she leaned forward and sneezed and developed some pain in her upper back accompanied by spasms. That resolved spontaneously. For this pain she has been taking extra strength Tylenol every 3-4 hours. Objective: Visit Vitals ??? BP 90/60 (Patient Site: Left Arm, Patient Position: Sitting, Cuff Size: Adult Regular) ??? Pulse 68 ??? Ht 5' 4.5 (1.638 m) ??? Wt 141 lb (64 kg) ??? No ??? BMI 23.83 kg/m2 History Smoking Status ??? Never Smoker Smokeless Tobacco ??? Not on file Physical Exam: She is sitting comfortably in the chair but has obvious discomfort when she stands upand walks to the exam table. Her gait is otherwise normal. She has tenderness to palpation right over her SI joints bilaterally. No pain in the buttocks or elsewhere in the back. Negative straight leg raising bilaterally. Normal brisk deep tendon reflexes. Current Outpatient Prescriptions on File Prior to Visit Medication Sig Dispense Refill ??? aspirin 81 MG EC tablet Take 81 mg by mouth daily. ??? mometasone (NASONEX) 50 mcg/actuation nasal spray Use 2 spray each nostril qd 17 g 5 ??? multivitamin (MULTIVITAMIN) per tablet 1 tablet daily. No current facility-administered medications on file prior to visit. Edel Major M.D. documented in this encounter Plan of Treatment Not on filedocumented as of this encounter Visit Diagnoses Diagnosis Low back strain, initial encounter documented in this encounter Care Teams Biochemistry Professor Relationship Specialty Start Date End Date Jennifer Reid NP PCP - General 10/12/18 11/02/18 Jennifer Reid NP PCP - General 11/15/18 11/19/18 Jagdeep Eng PCP - General 02/21/08 09/26/[address] Devan [place], [place] [address] Gini Snow MD PCP - General 09/27/18 10/11/18 documented as of this encounter
--- OUTSIDE RECORDS SUMMARY | 2022-06-15 11:07 | XMS_ITS | Encounter Summary ---
:1955 Author Organization [place] Address [address] [place] [address] Care Team Providers Name Role Phone Jennifer Reid DELIMER Primary Care Provider Jennifer Reid NP Primary Care Provider Jagdeep Eng Primary Care Provider Gini Snow MD Primary Care Provider Reason for Visit Reason Comments Follow Up 5 day course of Prednisone Encounter Details Date Type Department Care Team Description 05/04/2016 Communication - [facility], [facility] Prednisone) [address] [place] [id number] Social History Tobacco Use Types Packs/Day Years Used Date Smoking Tobacco: Never Assessed Sex Assigned at Date Recorded Female 11/25/2020 4:39 PM CDT documented as of this encounter Plan of Treatment Not on filedocumented as of this encounter Visit Diagnoses Not on filedocumented in this encounter Care Teams Boatwright Relationship Specialty Start Date End Date Jennifer Reid NP PCP - General 10/12/18 11/02/18 Jennifer Reid NP PCP - General 11/15/18 11/19/18 Jagdeep Eng PCP - General 02/21/08 09/26/[address] [place] [place] [address] Gini Snow MD PCP - General 09/27/18 documented as of this encounter
--- OUTSIDE RECORDS SUMMARY | 2022-06-15 11:08 | XMS_ITS | Encounter Summary ---
:1955 Author Organization [place] Address [address] [place] [address] Care Team Providers Name Role Phone Jennifer Reid COLLECTOR OF AQUARIUM SPECIMENS Primary Care Provider Jennifer Reid COLLECTOR OF AQUARIUM SPECIMENS Primary Care Provider Jagdeep Eng Primary Care Provider Gini Snow MD Primary Care Provider Encounter Details Date Type Department Care Team Description 10/13/2014 Ambulatory - [facility] [address] [place] [address] [place] [address] Provider, Historical Social History Tobacco Use Types Packs/Day Years Used Date Smoking Tobacco: Never Assessed Sex Assigned at Date Recorded Female 11/25/2020 4:39 PM CDT documented as of this encounter Plan of Treatment Not on filedocumented as of this encounter Visit Diagnoses Not on filedocumented in this encounter Care Teams Radiology Resident Relationship Specialty Start Date End Date Jennifer Reid NP PCP - General 10/12/18 11/02/18 Jennifer Reid NP PCP - General 11/15/18 11/19/18 Jagdeep Eng PCP - General 02/21/08 09/26/18 [facility] [address] [place] [address] [place] [address] Gini Snow MD PCP - General 09/27/18 10/11/18 documented as of this encounter
--- OUTSIDE RECORDS SUMMARY | 2022-06-15 11:08 | XMS_ITS | Encounter Summary ---
:1955 Author Organization [place] Address [address] [place] [address] Care Team Providers Name Role Phone Jennifer Reid PLASTIC FINISHER Primary Care Provider Jennifer Reid PLASTIC FINISHER Primary Care Provider Jagdeep Eng Primary Care Provider Gini Snow MD Primary Care Provider Jennifer Reid NP Unavailable Encounter Details Date Type Department Care Team Description 09/01/2015 Records - [facility] CONVERSION Provider, Andrzej aparicio Social History Tobacco Use Types Packs/Day Years Used Date Smoking Tobacco: Never Assessed Sex Assigned at Date Recorded Female 11/25/2020 4:39 PM CDT documented as of this encounter Plan of Treatment Not on filedocumented as of this encounter Visit Diagnoses Not on filedocumented in this encounter Care Teams Grade School Teacher Relationship Specialty Start Date End Date Jennifer Reid NP PCP - General 10/12/18 11/02/18 Jennifer Reid NP PCP - General 11/15/18 11/19/18 Jagdeep Eng PCP - General 02/21/08 09/26/[address] Devan [place] [id number] Gini Snow MD PCP - General 09/27/18 10/11/18 Jennifer Reid NP Assigned PCP 02/18/21 [address] [place] [id number] documented as of this encounter
--- OUTSIDE RECORDS SUMMARY | 2022-06-15 11:08 | XMS_ITS | Encounter Summary ---
:1955 Author Organization [place] Address [address] [place] [address] Care Team Providers Name Role Phone Jennifer Reid TURBO ELECTRIC OPERATOR Primary Care Provider Jennifer Reid TURBO ELECTRIC OPERATOR Primary Care Provider Jagdeep Eng Primary Care Provider Gini Snow MD Primary Care Provider Jennifer Reid NP Unavailable Encounter Details Date Type Department Care Team Description 10/13/2015 Records - [facility] CONVERSION Provider, Andrzej aparicio Social History Tobacco Use Types Packs/Day Years Used Date Smoking Tobacco: Never Assessed Sex Assigned at Date Recorded Female 11/25/2020 4:39 PM CDT documented as of this encounter Plan of Treatment Not on filedocumented as of this encounter Visit Diagnoses Not on filedocumented in this encounter Care Teams Glove Cutter Relationship Specialty Start Date End Date Jennifer Reid NP PCP - General 10/12/18 11/02/18 Jennifer Reid NP PCP - General 11/15/18 11/19/18 Jagdeep Eng PCP - General 02/21/08 09/26/[address] Devan [place] [id number] Gini Snow MD PCP - General 09/27/18 10/11/18 Jennifer Reid NP Assigned PCP 02/18/21 [address] [place] [id number] documented as of this encounter
--- OUTSIDE RECORDS SUMMARY | 2022-06-15 11:08 | XMS_ITS | Encounter Summary ---
:1955 Author Organization [place] Address [address] [place] [address] Care Team Providers Name Role Phone Jennifer Reid TRIM MACHINE OPERATOR Primary Care Provider Jennifer Reid TRIM MACHINE OPERATOR Primary Care Provider Jagdeep Eng Primary Care Provider Gini Snow MD Primary Care Provider Jennifer Reid NP Unavailable Encounter Details Date Type Department Care Team Description 05/01/2015 Records - [facility] CONVERSION Provider, Andrzej aparicio Social History Tobacco Use Types Packs/Day Years Used Date Smoking Tobacco: Never Assessed Sex Assigned at Date Recorded Female 11/25/2020 4:39 PM CDT documented as of this encounter Plan of Treatment Not on filedocumented as of this encounter Visit Diagnoses Not on filedocumented in this encounter Care Teams Technology Intern Relationship Specialty Start Date End Date Jennifer Reid NP PCP - General 10/12/18 11/02/18 Jennifer Reid NP PCP - General 11/15/18 11/19/18 Jagdeep Eng PCP - General 02/21/08 09/26/[address] Devan [place] [id number] Gini Snow MD PCP - General 09/27/18 10/11/18 Jennifer Reid NP Assigned PCP 02/18/21 [address] [place] [id number] documented as of this encounter
--- OUTSIDE RECORDS SUMMARY | 2022-06-15 11:08 | XMS_ITS | Encounter Summary ---
:1955 Author Organization [place] Address [facility] [place] [address] Care Team Providers Name Role Phone Jagdeep Eng Primary Care Provider Encounter Details Date Type Department Care Team Description 09/19/2014 Hospital Encounter [facility] Richard Eng [address] [place], [place] [id number] Other screening [facility] Breast Provider, [facility] Center [facility] [place] [address] Social History Tobacco Use Types Packs/Day Years Used Date Smoking Tobacco: Never Assessed Sex Assigned at Date Recorded Female 11/25/2020 4:39 PM CDT documented as of this encounter Plan of Treatment Not on filedocumented as of this encounter Procedures Procedure Name Priority Date/Time Associated Diagnosis Comme nts MA SCREENING Routine 09/19/2014 3:37 PM Other screening Result s for this BILATERAL KNITTING SUPERVISOR mammogram procedure are i n the results section. documented in this encounter Results MA Screening Bilateral (09/19/2014 3:37 PM KNITTING SUPERVISOR) Anatomical Region Laterality Modality Breast Bilateral Other Specimen (Source) Anatomical Location Collection Method / Collectio n Time Received Time / Laterality Volume Narrative 09/19/2014 4:28 PM KNITTING SUPERVISOR BILATERAL FULL FIELD DIGITAL SCREENING MAMMOGRAM Performed on: 09/19/14 Compared to: 08/28/2013 Mammo Screening Bilateral, 05/01/2012 Mammo Screening Bilateral. Findings: The breasts are heterogeneousl y dense. This may lower the sensitivity of mammography. There is no radiographic evidence of malignancy. This study was evaluated with the assistance of Computer-Aided Detection. Continue routine screening mammogram as recommended. ACR BI-RADS Category 1: Negative Procedure Note Dany Arevalo MD - 03/26/2021Formattin g of this note might be different from the original. BILATERAL FULL FIELD DIGITAL SCREENING M AMMOGRAM Performed on: 09/19/14 Compared to: 08/28/2013 Mammo Screening Bilateral, 05/01/2012 Mammo Screening Bilateral. Findings: The breasts are heterogeneousl y dense. This may lower the sensitivity of mammography. There is no radiographic evidence of malignancy. This study was evaluated with the assistance of Computer-Aided Detection. Continue routine screening mammogram as recommended. ACR BI-RADS Category 1: Negative Jagdeep Eng [facility] MAMMOGRAPHY ORDERABLES documented in this encounter Visit Diagnoses Diagnosis Other screening mammogram documented in this encounter Care Teams Call Center Support Consultant Relationship Specialty Start Date End Date Jagdeep Eng PCP - General 02/21/08 09/26/[address] [place] [address] documented as of this encounter
--- OUTSIDE RECORDS SUMMARY | 2022-06-15 11:08 | XMS_ITS | Encounter Summary ---
:1955 Author Organization [place] Address [facility] [place] [address] Care Team Providers Name Role Phone Jennifer Reid NP Primary Care Provider Jennifer Reid NP Primary Care Provider Jagdeep Eng Primary Care Provider Gini Snow MD Primary Care Provider Jennifer Reid NP Unavailable Encounter Details Date Type Department Care Team Description 08/23/2011 Records - [facility] Jagdeep Eng [facility] [address] [place] [address] [place] [address] Dr Costello, [address] [place], [place] Nasim Jacob [facility] [address] [place], [place] [phone] (Work) [phone] Social History Tobacco Use Types Packs/Day Years Used Date Smoking Tobacco: Never Assessed Sex Assigned at Date Recorded Female 11/25/2020 4:39 PM CDT documented as of this encounter Plan of Treatment Not on filedocumented as of this encounter Procedures Procedure Name Priority Date/Time Associated Comments Diagnosis GYNECOLOGIC CYTOLOGY Routine 08/23/2011 12:46 Res ults for this PM YOUTH LEADER procedure are i n the results section. LIPID PROFILE Routine 08/23/2011 12:00 Results fo r this PM YOUTH LEADER procedure are i n the results section. documented in this encounter Results Gynecologic Cytology (PAP Smear) (08/23/2011 12:46 PM YOUTH LEADER) Specimen Anatomical Collection Method Collection Time Receive d Time (Source) Location / / Volume Laterality 08/23/2011 12:46 08/23/2011 PM YOUTH LEADER 12:46 PM YOUTH LEADER Narrative [facility] Y - 08/23/2011 12:46 PM YOUTH LEADER [id number] ? Slide(s) 1 Specimen Type: ??SUREPATH SCREEN SOURCE: ENDOCERV CERVICAL PAP SMEAR INTERPRETATION: NEGATIVE FOR SQUAMOUS INTRAEPITHELIAL L ESION OR MALIGNANCY Based on Pap interpretation, HPV reflex test not performed. No Endocervical Cells Present; Atrophy Satisfactory for Interpretation PATIENT HISTORY Reflex HPV.................: Yes if ASC US High Risk..................: NO LMP/Menopause Date.........: Abnormal Bleeding:.........: NO Pt Status..................: NOT APPLIC ABLE Control/Hormones.....: NONE Previous Normal/Date.......: 02/21/2008 Prev. Abn Date/Dx..........: Cervical Appearance........: NORMAL J.Sedivy CT(ASCP) ?(mili ctronically signed) Performed at: ??[address] [address] Date Received: 08/23/11 ?Date Compl eted: 08/26/11 ??ABN Complete: Jagdeep MILLER - MARELY CROCKETT Performing Organization Address City/State/ZIP Code Phon e [place] [address] [id number] [place] [address] LABORATORY (ABNORMAL) Lipid Profile (08/23/2011 12:00 PM YOUTH LEADER) Patholo gist Method Time Signature LDL Cholesterol 118.3 <130.1 08/23/2011 [facility] Calculated mg/dL 12:00 PM [facility] Cholesterol 204 (H) <200 08/23/2011 [facility] mg/dL 12:00 PM [facility] Direct Measure 79 >39 mg/dL 08/23/2011 [facility] HDL 12:00 PM [facility] Triglycerides 36 <151 08/23/2011 [facility] mg/dL 12:00 PM [facility] Specimen Anatomical Collection Method Collection Time Receive d Time (Source) Location / / Volume Laterality 08/23/2011 12:00 08/23/2011 PM YOUTH LEADER 12:00 PM YOUTH LEADER Jagdeep Eng LAB - BLOOD ORDERABLES Performing Organization Address City/State/ZIP Code Phon e Number [facility] [place] [address] Professional [address] [address] CLINIC LABORATORY [facility] PROFESSIONAL [facility] documented in this encounter Visit Diagnoses Not on filedocumented in this encounter Care Teams Filteration Operator Relationship Specialty Start Date End Date Jennifer Reid NP PCP - General 10/12/18 11/02/18 Jennifer Reid NP PCP - General 11/15/18 11/19/18 Jagdeep Eng PCP - General 02/21/08 09/26/18 [facility] [address] [place] [address] Gini Snow MD PCP - General 09/27/18 10/11/18 Jennifer Reid NP Assigned PCP 02/18/21 [address] [place] [address] documented as of this encounter
--- OUTSIDE RECORDS SUMMARY | 2022-06-15 11:08 | XMS_ITS | Encounter Summary ---
:1955 Author Organization [place] Address [address] [place] [address] Care Team Providers Name Role Phone Jennifer Reid EXTRUDING MACHINE OPERATOR Primary Care Provider Jennifer Reid EXTRUDING MACHINE OPERATOR Primary Care Provider Jagdeep Eng Primary Care Provider Gini Snow MD Primary Care Provider Jennifer Reid NP Unavailable Encounter Details Date Type Department Care Team Description 07/18/2015 Records - [facility] CONVERSION Provider, Andrzej aparicio Social History Tobacco Use Types Packs/Day Years Used Date Smoking Tobacco: Never Assessed Sex Assigned at Date Recorded Female 11/25/2020 4:39 PM CDT documented as of this encounter Plan of Treatment Not on filedocumented as of this encounter Visit Diagnoses Not on filedocumented in this encounter Care Teams Manager Poker Relationship Specialty Start Date End Date Jennifer Reid NP PCP - General 10/12/18 11/02/18 Jennifer Reid NP PCP - General 11/15/18 11/19/18 Jagdeep Eng PCP - General 02/21/08 09/26/[address] Devan [place] [phone] Gini Snow MD PCP - General 09/27/18 10/11/18 Jennifer Reid NP Assigned PCP 02/18/21 [address] [place] [address] documented as of this encounter
--- OUTSIDE RECORDS SUMMARY | 2022-06-15 11:08 | XMS_ITS | Encounter Summary ---
:1955 Author Organization [place] Address [address] [place] [address] Care Team Providers Name Role Phone Jennifer Reid NURSING ASSISTANTS TEACHER Primary Care Provider Jennifer Reid NURSING ASSISTANTS TEACHER Primary Care Provider Jagdeep Eng Primary Care Provider Gini Snow MD Primary Care Provider Jennifer Reid NP Unavailable Encounter Details Date Type Department Care Team Description 04/28/2015 Records - [facility] CONVERSION Provider, Andrzej aparicio Social History Tobacco Use Types Packs/Day Years Used Date Smoking Tobacco: Never Assessed Sex Assigned at Date Recorded Female 11/25/2020 4:39 PM CDT documented as of this encounter Plan of Treatment Not on filedocumented as of this encounter Visit Diagnoses Not on filedocumented in this encounter Care Teams Heat Treater Apprentice Relationship Specialty Start Date End Date Jennifer Reid NP PCP - General 10/12/18 11/02/18 Jennifer Reid NP PCP - General 11/15/18 11/19/18 Jagdeep Eng PCP - General 02/21/08 09/26/[address] Devan [place] [phone] Gini Snow MD PCP - General 09/27/18 10/11/18 Jennifer Reid NP Assigned PCP 02/18/21 [address] [place] [id number] documented as of this encounter
--- OUTSIDE RECORDS SUMMARY | 2022-06-15 11:08 | XMS_ITS | Encounter Summary ---
:1955 Author Organization [place] Address [address] [place] [address] Care Team Providers Name Role Phone Jennifer Reid NP Primary Care Provider Jennifer Reid NP Primary Care Provider Jagdeep Eng Primary Care Provider Gini Snow MD Primary Care Provider Reason for Visit Reason Comments Physical fasting, wouldl like Vamin D level checked Encounter Details Date Type Department Care Team Description 10/18/2014 Office Visit - [facility] Juvenal Eng [facility] [address] [place] [address] [place] [address] Routine general medical examination at a health care facility; [facility] Provider, Historical Pure hypercholesterolemia; Loi Unspecified vitamin D defici ency; [address] [place] [address] [place] [phone] Social History Tobacco Use Types Packs/Day Years Used Date Smoking Tobacco: Never Assessed Sex Assigned at Date Recorded Female 11/25/2020 4:39 PM CDT documented as of this encounter Last Filed Vital Signs Vital Sign Reading Time Taken Comments Blood Pressure - - Pulse - - Temperature - - Respiratory Rate - - Oxygen Saturation - - Inhaled Oxygen Concentration - - Weight 62.6 kg (138 lb) 10/18/2014 1:25 PM COMPUTER SYSTEM VALIDATION SPECIALIST Height 162.6 cm (5' 4) 10/18/2014 1:25 PM COMPUTER SYSTEM VALIDATION SPECIALIST Body Mass Index 23.69 10/18/2014 1:25 PM COMPUTER SYSTEM VALIDATION SPECIALIST documented in this encounter Progress Notes Jagdeep Eng Roxana - 10/18/2014 1:27 PM CST BP 108/62 Pulse 74 Resp 16 Ht 5' 4 (1.626 m) Wt 138 lb (62.596 kg) BMI 23.68 kg/m2 Cindy Duarte is a 59 y.o. female here for physical she has no specific concerns about her healthshe is here fasting and would like her cholesterol and vitamin D checked we reviewed heart disease prevention and cancer detection. She is exercising regularly and we reviewed her past medical history past surgical history and family history. Active Ambulatory Problems Diagnosis Date Noted ??? Vitamin D Deficiency ??? Essential Hypercholesterolemia ??? Allergic Rhinitis ??? Acute Otitis Media ??? Acute Bronchitis Resolved Ambulatory Problems Diagnosis Date Noted ??? No Resolved Ambulatory Problems Past Medical History Diagnosis Date ??? Vitamin D deficiency Past Surgical History Procedure Laterality Date ??? Tubal ligation ??? x4 Family History Problem Relation Age of Onset ??? Asthma Father ??? Prostate cancer Father ??? Arthritis Mother ??? Colon cancer Paternal Grandmother ??? Coronary artery disease Maternal Grandfather ??? Coronary artery disease Maternal Grandmother ??? Coronary artery disease Paternal Grandfather Current outpatient prescriptions:multivitamin (MULTIVITAMIN) per tablet, 1 tablet daily., Disp: , Rfl: ; ergocalciferol (ERGOCALCIFEROL) 50,000 unit capsule, Take 50,000 Units by mouth once a week. For12 weeks, Disp: , Rfl: ; fluconazole (DIFLUCAN) 150 MG tablet, 150 mg once., Disp: , Rfl: ; mometasone (NASONEX) 50 mcg/actuation nasal spray, Use 2 spray each nostril qd, Disp: 17 g, Rfl: 5 No Known Allergies Immunization History Administered Date(s) Administered ??? DT (pediatric) 02/28/1996 ??? Hep A, historic 02/21/2008 ??? Td, historic 02/21/2008 ??? Tdap 02/21/2008 History Social History ??? Marital Status: Spouse Name: N/A Number of Children: N/A ??? Years of Education: N/A Occupational History ??? Not on file. Social History Main Topics ??? Smoking status: Never Smoker ??? Smokeless tobacco: Not on file ??? Alcohol Use: Not on file ??? Drug Use: Not on file ??? Sexual Activity: Not on file Other Topics Concern ??? Not on file Social History Narrative ??? No narrative on file She is a nonsmoker does have a couple of glasses of wine a week for review of systems all otherwise negative General [...] respirations unlabored Chest wall: No tenderness or deformity Heart: Regular rate and rhythm, S1 and S2 normal, no murmur, rub or gallop Abdomen: Soft, non-tender, bowel sounds active all four quadrants, no masses, no organomegaly Genitalia: her breast exam is normal pelvic exam external genitalia are normal cervix appears normaland Pap smear performed cervix is nontender uterus small regular nontender adnexa nontender without masses rectal exam is negative Extremities: Extremities normal, atraumatic, no cyanosis or edema Pulses: 2+ and symmetric all extremities Skin: Skin color, texture, turgor normal, no rashes or lesions Lymph nodes: Cervical, supraclavicular, and axillary nodes normal Neurologic: CNII-XII intact. Normal strength, sensation and reflexes throughout Labs pending Assessment: Pap in general exam with hypercholesterolemia vitamin D deficiency chronic rhinitis Plan: We'll call her with labs when available encouraged her on her exercise routine and she'll follow up here annually or as needed documented in this encounter Plan of Treatment Not on filedocumented as of this encounter Procedures Procedure Name Priority Date/Time Associated Comments Diagnosis LAB RESULT - HIM SCAN 10/31/2014 1:16 PM Results for this COMPUTER SYSTEM VALIDATION SPECIALIST procedure are i n the results section. LIPID PROFILE Routine 10/18/2014 2:05 PM Results for this COMPUTER SYSTEM VALIDATION SPECIALIST procedure are i n the results section. GYNECOLOGIC CYTOLOGY Routine 10/18/2014 2:01 PM R esults for this COMPUTER SYSTEM VALIDATION SPECIALIST procedure are i n the results section. documented in this encounter Results LAB RESULT - HIM SCAN (10/31/2014 1:16 PM COMPUTER SYSTEM VALIDATION SPECIALIST) Specimen (Source) Anatomical Location Collection Method / Collectio n Time Received Time / Laterality Volume Narrative This result has an attachment that is no t available. Historical Provider MH NON-BEAKER LAB TESTING (ABNORMAL) Lipid Profile (10/18/2014 2:05 PM COMPUTER SYSTEM VALIDATION SPECIALIST) Patholo gist Method Time Signature Triglycerides 43 <=149 10/18/2014 mg/dL 6:43 PM COMPUTER SYSTEM VALIDATION SPECIALIST Cholesterol 235 (H) <=199 10/18/2014 mg/dL 6:43 PM COMPUTER SYSTEM VALIDATION SPECIALIST LDL Cholesterol 144 (H) 0 - 129 10/18/2014 Calculated mg/dL 6:43 PM COMPUTER SYSTEM VALIDATION SPECIALIST Direct Measure HDL 82 >=40 10/18/2014 mg/dL 6:43 PM COMPUTER SYSTEM VALIDATION SPECIALIST Specimen Anatomical Collection Method / Collection Time Recei jake Time (Source) Location / Volume Laterality Blood specimen Venipuncture / 10/18/2014 2:05 10/18/19 15 6:12 (specimen) Unknown PM COMPUTER SYSTEM VALIDATION SPECIALIST PM COMPUTER SYSTEM VALIDATION SPECIALIST Jagdeep Eng LAB - BLOOD ORDERABLES Gynecologic Cytology (PAP Smear) (10/18/2014 2:01 PM COMPUTER SYSTEM VALIDATION SPECIALIST) Component Value Ref Test Analysis Performed Pathologis t Range Method Time At Signature Case Report Gynecologic Cytology Report ? Case: [id number] ? 10/31/2014 1:16 PM Authorizing Provider: ??Juvenal Eng MD ?Ordering Provider: ?? Jagdeep Eng MD ? COMPUTER SYSTEM VALIDATION SPECIALIST Ordering Location: ? [facility] ? Collected: ? 10/18/2014 1401 ? Family Medicine/OB ? First Screen: ? Trisha Gomez, CT ?Received: ?10/21/2014 0948 ? (ASCP) ? Specimen: ?SUREPATH PAP, SCREENING, Endocervical/cervical ? Interpretation Negative for squamous intraepithelial lesion or georgiana gnancy 10/31/2014 at ??1:16 PM 1:16 PM COMPUTER SYSTEM VALIDATION SPECIALIST Result Flag Normal Normal 10/31/2014 1:16 PM COMPUTER SYSTEM VALIDATION SPECIALIST Specimen Adequacy Satisfactory for 10/31/2014 evaluation, 1:16 PM endocerv/transform COMPUTER SYSTEM VALIDATION SPECIALIST ation zone component absent, atrophy Reflex Testing Yes if Abnormal 10/31/2014 1:16 PM COMPUTER SYSTEM VALIDATION SPECIALIST High Risk? No 10/31/2014 1:16 PM COMPUTER SYSTEM VALIDATION SPECIALIST Abnormal Bleeding No 10/31/2014 1:16 PM COMPUTER SYSTEM VALIDATION SPECIALIST Patient Status n/a 10/31/2014 1:16 PM COMPUTER SYSTEM VALIDATION SPECIALIST None 10/31/2014 Control/Hormones 1:16 PM COMPUTER SYSTEM VALIDATION SPECIALIST Previous n/a 10/31/2014 Abnormal? 1:16 PM COMPUTER SYSTEM VALIDATION SPECIALIST Cervical normal 10/31/2014 Appearance 1:16 PM COMPUTER SYSTEM VALIDATION SPECIALIST Specimen Anatomical Collection Method Collection Time Receive d Time (Source) Location / / Volume Laterality Specimen of CERVIX UTERI 10/18/2014 2:01 PM 5 9:48 unknown material STRUCTURE / COMPUTER SYSTEM VALIDATION SPECIALIST AM COMPUTER SYSTEM VALIDATION SPECIALIST (specimen) Unknown [facility] documented in this encounter Visit Diagnoses Diagnosis Routine general medical examination at a [facility] care facility Pure hypercholesterolemia Unspecified vitamin D deficiency Chronic rhinitis documented in this encounter Care Teams Rv Mechanic Relationship Specialty Start Date End Date Jennifer Reid NP PCP - General 10/12/18 11/02/18 Jennifer Reid NP PCP - General 11/15/18 11/19/18 Jagdeep Eng PCP - General 02/21/08 09/26/[address] [place] [address] Gini Snow MD PCP - General 09/27/18 10/11/18 documented as of this encounter
--- OUTSIDE RECORDS SUMMARY | 2022-06-15 11:08 | XMS_ITS | Encounter Summary ---
:1955 Author Organization [facility] Address [address] [place] [address] Care Team Providers Name Role Phone Jennifer Reid NP Primary Care Provider Jennifer Reid NP Primary Care Provider Jagdeep Spann Primary Care Provider Gini Snow MD Primary Care Provider Jennifer Reid NP Unavailable Encounter Details Date Type Department Care Team Description 08/28/2013 Records - [facility] Provider, Maggie hubbard [facility] Diagnostic Imaging [address] [place] [address] Social History Tobacco Use Types Packs/Day Years Used Date Smoking Tobacco: Never Assessed Sex Assigned at Date Recorded Female 11/25/2020 4:39 PM CDT documented as of this encounter Plan of Treatment Not on filedocumented as of this encounter Procedures Procedure Name Priority Date/Time Associated Diagnosis Comme nts MA SCREENING Routine 08/28/2013 12:00 AM Results for this BILATERAL PLASTIC WORKER procedure are i n the results section. documented in this encounter Results MA Screening Bilateral (08/28/2013 12:00 AM PLASTIC WORKER) Anatomical Region Laterality Modality Breast Bilateral Other Specimen (Source) Anatomical Location Collection Method / Collectio n Time Received Time / Laterality Volume Narrative 08/28/2013 12:00 AM PLASTIC WORKER EXAMINATION: Full Field Digital Screening Mammogram 08/28/2013 6:58 AM INDICATION: Screening. COMPARISON: Studies dating back to 10/24 ?? FINDINGS: Breast tissue is heterogeneous ly dense which may compromise mammography. No radiographic evidence of malignancy. No significant change from previous mammogram. CAD analysis was performed and used in t he interpretation of this exam. ACR CATEGORY: 1 NEGATIVE CONFIDENTIAL MEDICAL REPORT [facility] [address] [place], [place] ??[address] Phone: ??[phone] ?Fax: ??[phone] Name: ??CHERYL DUARTE ?? Account: ?? [id number] IMRN: [id number] Number:[id number] Date of :1955 ?? Location: [facility] R Age: ??58 ?Sex: ??FInterpreted by: Filipe GOODE IV, MD Ordered By:JAGDEEP SPANN Phy : ?JAGDEEP SPANN Date of Service:08/28/13 Exam: ?REASON FOR EXAM: ? MG SCREENING MAMMOGRAM BILAT ?? SCREENIN G MAMMOGRAM RADIOLOGY REPORT This report is preliminary unless an mili ctronic signature appears below. Electronically Signed By: ??CHRIS SALMERON IV ? D: ??08/28/2013 ?11:04T: ?R: ??08/28/2013 ??11:05Tech: [id number] Procedure Note Provider, Historical - 03/26/2021Formatt ing of this note might be different from the original. EXAMINATION: Full Field Digital Screenin g Mammogram 08/28/2013 6:58 AM INDICATION: Screening. COMPARISON: Studies dating back to 10/24 FINDINGS: Breast tissue is heterogeneous ly dense which may compromise mammography. No radiographic evidence of malignancy. No significant change from previous mammogram. CAD analysis was performed and used in t he interpretation of this exam. ACR CATEGORY: 1 NEGATIVE CONFIDENTIAL MEDICAL REPORT [facility] [address] [place] [address] Name: CHERYL DUARTE Account: [id number] IMRN: [id number] Number:[id number] Date of :1955 Location: [facility] Age: 58 Sex: FInterpreted by: CHRIS SALMERON IV, MD Ordered By:JAGDEEP SPANN Phy : JAGDEEP SPANN Date of Service:08/28/13 Exam: REASON FOR EXAM: MG SCREENING MAMMOGRAM BILAT SCREENING M AMMOGRAM RADIOLOGY REPORT This report is preliminary unless an mili ctronic signature appears below. Electronically Signed By: CHRIS VO IV T: R: 08/28/2013 11:0 5Tech: [id number] Historical Provider IMG MAMMOGRAPHY ORDERABLES documented in this encounter Visit Diagnoses Not on filedocumented in this encounter Care Teams Nuclear Medicine Chief Technologist Relationship Specialty Start Date End Date Jennifer Reid NP PCP - General 10/12/18 11/02/18 Jennifer Reid NP PCP - General 11/15/18 11/19/18 Jagdeep Spann PCP - General 02/21/08 09/26/18 [facility] [address] [facility] [place] [address] Gini Snow MD PCP - General 09/27/18 10/11/18 Jennifer Reid NP Assigned PCP 02/18/21 [address] [place] [address] documented as of this encounter
--- OUTSIDE RECORDS SUMMARY | 2022-06-15 11:08 | XMS_ITS | Encounter Summary ---
:1955 Author Organization [place] Address [address] [place] [address] Care Team Providers Name Role Phone Jennifer Reid BEHAVIORAL THERAPY COORDINATOR Primary Care Provider Jennifer Reid BEHAVIORAL THERAPY COORDINATOR Primary Care Provider Jagdeep Eng Primary Care Provider Gini Snow MD Primary Care Provider Encounter Details Date Type Department Care Team Description 09/19/2014 Communication - [facility] Provider, Estevan sung Social History Tobacco Use Types Packs/Day Years Used Date Smoking Tobacco: Never Assessed Sex Assigned at Date Recorded Female 11/25/2020 4:39 PM CDT documented as of this encounter Plan of Treatment Not on filedocumented as of this encounter Visit Diagnoses Not on filedocumented in this encounter Care Teams Evp Head Of [employer] Experience Strategy Relationship Specialty Start Date End Date Jennifer Reid NP PCP - General 10/12/18 11/02/18 Jennifer Reid NP PCP - General 11/15/18 11/19/18 Jagdeep Eng PCP - General 02/21/08 09/26/[address] [place] [address] Gini Snow MD PCP - General 09/27/18 documented as of this encounter
--- OUTSIDE RECORDS SUMMARY | 2022-06-15 11:08 | XMS_ITS | Encounter Summary ---
:1955 Author Organization [facility] Address [address] [place] [address] Care Team Providers Name Role Phone Jennifer Reid NP Primary Care Provider Jennifer Reid NP Primary Care Provider Jagdeep Spann Primary Care Provider Gini Snow MD Primary Care Provider Jennifer Reid NP Unavailable Encounter Details Date Type Department Care Team Description 05/01/2012 Records - [facility] Provider, Maggie hubbard [facility] Diagnostic Imaging [address] [place] [address] Social History Tobacco Use Types Packs/Day Years Used Date Smoking Tobacco: Never Assessed Sex Assigned at Date Recorded Female 11/25/2020 4:39 PM CDT documented as of this encounter Plan of Treatment Not on filedocumented as of this encounter Procedures Procedure Name Priority Date/Time Associated Diagnosis Comme nts MA SCREENING Routine 05/01/2012 12:00 AM Results for this BILATERAL CDT procedure are i n the results section. documented in this encounter Results MA Screening Bilateral (05/01/2012 12:00 AM CDT) Anatomical Region Laterality Modality Breast Bilateral Other Specimen (Source) Anatomical Location Collection Method / Collectio n Time Received Time / Laterality Volume Narrative 05/01/2012 12:00 AM CDT Ordered by: ?JAGDEEP SPANN ??: 1955 Primary: ??Roxana SPANN MD ?Ag e: ??57Y ?Sex: ??F Referred by: ?? RADIOLOGY REPORT EXAMINATION: ??Bilateral Full Field Digi laci Screening Mammogram, 05/01/2012 INDICATION: Screening. COMPARISON: ??12/11/2010, 11/07/2009, performed at [facility]. FINDINGS: Breast tissue is heterogeneous ly dense which may compromise mammography. No radiographic evidence o f malignancy. No significant change from previous mammogram. CAD analysis was performed and used in t he interpretation of this exam. ACR CATEGORY: 1 - NEGATIVE AMAN BANSAL MD ab; D 05/02/2012 00:00:00; T 05/02/2012 14:22:23; R 05/02/2012 14:22:23; 0 TECHNOLOGIST: [id number] ; FLUOROSCOPY TIME: ? Patient Name: CHERYL DUARTE ??MRN: [id number] ? This report is preliminary unless an mili ctronic signature appears below. This document has been electronically si gned by AMAN BANSAL MD on 05/02/2012 17:15:23. CONFIDENTIAL MEDICAL REPORT [facility] [address] [place], [place] ??[address] Phone: ??[phone] ?Fax: ?? Name: ??CHERYL DUARTE ?? Account: ?? [id number] Interpreted By: AMAN BANSAL MD ?? Locat ion: [facility] Requisition: ??[id number] ?? Room: ? Service Date: ??05/01/12 ?? Exam: ?REASON FOR EXAM: ? MG SCREENING MAMMOGRAM BILAT ?? SCREENIN G MAMMOGRAM RADIOLOGY REPORT Procedure Note Provider, Historical - 03/25/2021Formatt ing of this note might be different from the original. Ordered by: JAGDEEP SPANN : 04/05 Primary: Roxana SPANN MD Age: 57Y Sex: F Referred by: RADIOLOGY REPORT EXAMINATION: Bilateral Full Field Digita l Screening Mammogram, 05/01/2012 INDICATION: Screening. COMPARISON: 12/11/2010, 11/07/2009, 12/[address] [facility]. FINDINGS: Breast tissue is heterogeneous ly dense which may compromise mammography. No radiographic evidence o f malignancy. No significant change from previous mammogram. CAD analysis was performed and used in t he interpretation of this exam. ACR CATEGORY: 1 - NEGATIVE AMAN BANSAL MD ab; D 05/02/2012 00:00:00; T 05/02/2012 14:22:23; R 05/02/2012 14:22:23; 0 TECHNOLOGIST: [id number] ; FLUOROSCOPY TIME: Patient Name: CHERYL DUARTE MRN: [id number] This report is preliminary unless an mili ctronic signature appears below. This document has been electronically si gned by AMAN BANSAL MD on 05/02/2012 17:15:23. CONFIDENTIAL MEDICAL REPORT [facility] [address] [place] [address] Name: ABBEYCHERYL Account: [id number] Interpreted By: AMAN BANSAL MD Location : [facility] Requisition: [id number] Room: Service Date: 05/01/12 Exam: REASON FOR EXAM: MG SCREENING MAMMOGRAM BILAT SCREENING M AMMOGRAM RADIOLOGY REPORT Historical Provider IMG MAMMOGRAPHY ORDERABLES documented in this encounter Visit Diagnoses Not on filedocumented in this encounter Care Teams Stock Patch Sawyer Relationship Specialty Start Date End Date Jennifer Reid NP PCP - General 10/12/18 11/02/18 Jennifer Reid NP PCP - General 11/15/18 11/19/18 Jagdeep Spann PCP - General 02/21/08 09/26/[address] [place] [address] Gini Snow MD PCP - General 09/27/18 10/11/18 Jennifer Reid NP Assigned PCP 02/18/21 [address] [place] [address] documented as of this encounter
--- OUTSIDE RECORDS SUMMARY | 2022-06-15 11:08 | XMS_ITS | Encounter Summary ---
:1955 Author Organization [facility] Address [address] [place] [address] Care Team Providers Name Role Phone Jennifer Reid SHOP HELPER Primary Care Provider Jennifer Reid SHOP HELPER Primary Care Provider Jagdeep Eng Primary Care Provider Gini Snow MD Primary Care Provider Jennifer Reid NP Unavailable Encounter Details Date Type Department Care Team Description 12/15/2015 Records - [facility] CONVERSION Provider, Andrzej aparicio Social History Tobacco Use Types Packs/Day Years Used Date Smoking Tobacco: Never Assessed Sex Assigned at Date Recorded Female 11/25/2020 4:39 PM CDT documented as of this encounter Plan of Treatment Not on filedocumented as of this encounter Visit Diagnoses Not on filedocumented in this encounter Care Teams Watch Assembler Relationship Specialty Start Date End Date Jennifer Reid NP PCP - General 10/12/18 11/02/18 Jennifer Reid NP PCP - General 11/15/18 11/19/18 Jagdeep Eng PCP - General 02/21/08 09/26/[address] Devan [place] [id number] Gini Snow MD PCP - General 09/27/18 10/11/18 Jennifer Reid NP Assigned PCP 02/18/21 [address] [place] [id number] documented as of this encounter
--- OUTSIDE RECORDS SUMMARY | 2022-06-15 11:08 | XMS_ITS | Encounter Summary ---
:1955 Author Organization [facility] Address [address] [place] [address] Care Team Providers Name Role Phone Jennifer Reid SHOP LABORER Primary Care Provider Jennifer Reid SHOP LABORER Primary Care Provider Jagdeep Eng Primary Care Provider Gini Snow MD Primary Care Provider Encounter Details Date Type Department Care Team Description 08/25/2015 Communication - [facility] Breast [address] [facility] [place] [address] [facility] [phone] Social History Tobacco Use Types Packs/Day Years Used Date Smoking Tobacco: Never Assessed Sex Assigned at Date Recorded Female 11/25/2020 4:39 PM CDT documented as of this encounter Plan of Treatment Not on filedocumented as of this encounter Visit Diagnoses Not on filedocumented in this encounter Care Teams Helpdesk Administrator Relationship Specialty Start Date End Date Jennifer Reid NP PCP - General 10/12/18 11/02/18 Jennifer Reid NP PCP - General 11/15/18 11/19/18 Jagdeep Eng PCP - General 02/21/08 09/26/[address] [place] [id number] Gini Snow MD PCP - General 09/27/18 documented as of this encounter
--- OUTSIDE RECORDS SUMMARY | 2022-06-15 11:08 | XMS_ITS | Encounter Summary ---
:1955 Author Organization [facility] Address [address] [place] [address] Care Team Providers Name Role Phone Jennifer Reid COMMISSION ASSOCIATE Primary Care Provider Jennifre Reid COMMISSION ASSOCIATE Primary Care Provider Jagdeep Eng Primary Care Provider Gini Snow MD Primary Care Provider Jennifer Reid NP Unavailable Encounter Details Date Type Department Care Team Description 08/04/2015 Records - [facility] CONVERSION Provider, Andrzej aparicio Social History Tobacco Use Types Packs/Day Years Used Date Smoking Tobacco: Never Assessed Sex Assigned at Date Recorded Female 11/25/2020 4:39 PM CDT documented as of this encounter Plan of Treatment Not on filedocumented as of this encounter Visit Diagnoses Not on filedocumented in this encounter Care Teams Hazardous Substances Scientist Relationship Specialty Start Date End Date Jennifer Reid NP PCP - General 10/12/18 11/02/18 Jennifer Reid NP PCP - General 11/15/18 11/19/18 Jagdeep Eng PCP - General 02/21/08 09/26/[address] Devan [place] [id number] Gini Snow MD PCP - General 09/27/18 10/11/18 Jennifer Reid NP Assigned PCP 02/18/21 [address] [place] [id number] documented as of this encounter
--- OUTSIDE RECORDS SUMMARY | 2022-06-15 11:08 | XMS_ITS | Encounter Summary ---
:1955 Author Organization [place] Address [address] [place] [address] Care Team Providers Name Role Phone Jennifer Reid MUSTANGER Primary Care Provider Jennifer Reid MUSTANGER Primary Care Provider Jagdeep Eng Primary Care Provider Gini Snow MD Primary Care Provider Encounter Details Date Type Department Care Team Description 07/14/2015 Communication - [facility] Juvenal Eng [address] Dev[place] [id number] [facility] [place] Provider, Historical [address] [place] [address] Social History Tobacco Use Types Packs/Day Years Used Date Smoking Tobacco: Never Assessed Sex Assigned at Date Recorded Female 11/25/2020 4:39 PM CDT documented as of this encounter Plan of Treatment Not on filedocumented as of this encounter Visit Diagnoses Not on filedocumented in this encounter Care Teams Kitchen Operator Relationship Specialty Start Date End Date Jennifer Reid NP PCP - General 10/12/18 11/02/18 Jennifer Reid NP PCP - General 11/15/18 11/19/18 Jagdeep Eng PCP - General 02/21/08 09/26/[address] [place] [address] Gini Snow MD PCP - General 09/27/18 10/11/18 documented as of this encounter
--- OUTSIDE RECORDS SUMMARY | 2022-06-15 11:08 | XMS_ITS | Encounter Summary ---
:1955 Author Organization [place] Address [facility] [place] [address] Care Team Providers Name Role Phone Jennifer Reid NP Primary Care Provider Jennifer Reid NP Primary Care Provider Jagdeep Spann Primary Care Provider Gini Snow MD Primary Care Provider Reason for Visit Reason Comments Pre-Op Exam surgery Jul 18 Encounter Details Date Type Department Care Team Description [facility] [address] [place] [address] Pre-operative cardiovascular examination ; [facility] Provider, Historical Pure hypercholesterolemia; Loi Unspecified vitamin D defici ency; [address] [place] [address] Allergic rhi nitis, cause unspecified; Drive [address], [address] Toe pain [place] [address] Social History Tobacco Use Types Packs/Day [...] - - Weight 63.5 kg (140 lb) 07/07/2015 11:21 AM FOLDER TIER Height 162.6 cm (5' 4) 07/07/2015 11:21 AM FOLDER TIER Body Mass Index 24.03 07/07/2015 11:21 AM FOLDER TIER documented in this encounter Progress Notes Jadgeep Spann - 07/07/2015 12:04 PM CST Electrocardiogram Perform and Read Date/Time: 07/07/2015 12:04 PM Performed by: JAGDEEP SPANN Authorized by: JAGDEEP SPANN Rhythm: sinus bradycardia Rate: bradycardic QRS axis: normal Conduction: conduction normal ST Segments: ST segments normal T Waves: T waves normal Other: no other findings Clinical impression: non-specific ECG Jagdeep Spann - 07/07/2015 11:20 AM CST BP 128/80 Pulse 60 Temp(Src) 97.9 ??F (36.6 ??C) Ht 5' 4 (1.626 m) Wt 140 lb (63.504 kg) BMI 24.02 kg/m2 SpO2 100% Cindy Duarte is a 60 y.o. female here for preop physical. She is scheduled for surgery on [address] Castillo for the left first metatarsal phalangeal joint arthrodesis. She has had pain and stiffness into this joint for many years. We reviewed the risks and benefits of surgery the risks of anesthesia or questions were answered she's going to go ahead. Active Ambulatory Problems Diagnosis Date Noted ??? [...] Prostate cancer Father ??? Arthritis Mother ??? Diabetes Mother ??? Colon cancer Paternal Grandmother ??? Coronary artery disease Maternal Grandfather ??? Coronary artery disease Maternal Grandmother ??? Coronary artery disease Paternal Grandfather Current outpatient prescriptions:aspirin 81 MG EC tablet, Take 81 mg by mouth daily., Disp: , Rfl: ;multivitamin (MULTIVITAMIN) per tablet, 1 tablet daily., Disp: , Rfl: ; mometasone (NASONEX) 50 [...] History Narrative ??? No narrative on file Habits: She is a nonsmoker who uses alcohol once or twice a week Her review of systems all otherwise negative [...] all four quadrants, no masses, no organomegaly Extremities: her left first toe is Moustapha and some with dorsiflexion and she has what feels like some bone spurs around her first metatarsophalangeal joint the remainder of her extremity exam is normal free of edema Pulses: 2+ and symmetric all extremities Skin: Skin color, texture, turgor normal, no rashes or lesions Lymph nodes: Cervical, supraclavicular, and axillary nodes normal Neurologic: CNII-XII intact. Normal strength, sensation and reflexes throughout Laboratory EKG pending Assessment: Preoperative history and physical for left first toe pain/arthrodesis with underlying hypercholesterolemia allergic rhinitis vitamin D deficiency Plan: Okay for surgery we will call with labs when available we will fax over a copy of this report lab and EKG to surgery and she'll follow up here in one year or as needed documented in this encounter Plan of Treatment Not on filedocumented as of this encounter Procedures Procedure Name Priority Date/Time Associated Comments Diagnosis EKG CARDIAC - HIM 07/09/2015 SCAN LDL CHOLESTEROL Routine 07/07/2015 11:51 Results for this DIRECT AM FOLDER TIER procedure are i n the results section. CHOLESTEROL Routine 07/07/2015 11:51 Results for this AM FOLDER TIER procedure are i n the results section. EKG 12-LEAD, TRACING Routine 07/07/2015 ONLY documented in this encounter Results EKG CARDIAC - HIM SCAN (07/09/2015) Specimen (Source) Anatomical Location Collection Method / Collectio n Time Received Time / Laterality Volume Narrative This result has an attachment that is no t available. Historical Provider ECG ORDERABLES (ABNORMAL) Cholesterol (07/07/2015 11:51 AM FOLDER TIER) P athologist Signature Cholesterol 246 (H) <=199 07/07/2015 [facility] mg/dL 8:37 PM FOLDER TIER [facility] Specimen Anatomical Collection Method / Collection Time Recei jake Time (Source) Location / Volume Laterality Blood specimen Venipuncture / 07/07/2015 11:51 015 8:02 (specimen) Unknown AM FOLDER TIER PM FOLDER TIER Jagdeep Spann LAB - BLOOD ORDERABLES Performing Organization Address City/State/ZIP Code Phon [place] [address] [address] [facility] (ABNORMAL) LDL cholesterol direct (07/07/2015 11:51 AM FOLDER TIER) [facility] Method Time Signature LDL Cholesterol 141 (H) <=129 07/07/2015 [facility] Direct mg/dl 8:37 PM FOLDER TIER [facility] Specimen Anatomical Collection Method / Collection Time Recei jake Time (Source) Location / Volume Laterality Blood specimen Venipuncture / 07/07/2015 11:51 015 8:02 (specimen) Unknown AM FOLDER TIER PM FOLDER TIER Jagdeep Spann LAB - BLOOD ORDERABLES Performing Organization Address City/[facility]/ZIP [facility] Phon [place] [address] [address] [facility] EKG 12-lead, tracing only (07/07/2015) Specimen (Source) Anatomical Location Collection Method / Collectio n Time Received Time / Laterality Volume 07/07/2015 Jagdeep Spann ECG ORDERABLES Performing Organization Address City/State/ZIP Code Phon e Number [facility] CONVERSION documented in this encounter Visit Diagnoses Diagnosis Pre-operative cardiovascular examination Pure hypercholesterolemia Unspecified vitamin D deficiency Allergic rhinitis, cause unspecified Toe pain Pain in limb documented in this encounter Care Teams Zinc Plate Cutter Relationship Specialty Start Date End Date Jennifer Reid NP PCP - General 10/12/18 11/02/18 Jennifer Reid NP PCP - General 11/15/18 11/19/18 Jagdeep Spann PCP - General 02/21/08 09/26/[address] [place] [address] Gini Snow MD PCP - General 09/27/18 10/11/18 documented as of this encounter
--- OUTSIDE RECORDS SUMMARY | 2022-06-15 11:08 | XMS_ITS | Encounter Summary ---
:1955 Author Organization [place] Address [address] [place] [address] Care Team Providers Name Role Phone Jennifer Reid MANAGER RELATIONSHIP Primary Care Provider Jennifer Reid MANAGER RELATIONSHIP Primary Care Provider Jagdeep Eng Primary Care Provider Gini Snow MD Primary Care Provider Jennifer Reid NP Unavailable Encounter Details Date Type Department Care Team Description 05/13/2015 Records - [facility] CONVERSION Provider, Andrzej aparicio Social History Tobacco Use Types Packs/Day Years Used Date Smoking Tobacco: Never Assessed Sex Assigned at Date Recorded Female 11/25/2020 4:39 PM CDT documented as of this encounter Plan of Treatment Not on filedocumented as of this encounter Visit Diagnoses Not on filedocumented in this encounter Care Teams Road Inspector Relationship Specialty Start Date End Date Jennifer Reid NP PCP - General 10/12/18 11/02/18 Jennifer Reid NP PCP - General 11/15/18 11/19/18 Jagdeep Eng PCP - General 02/21/08 09/26/[address] Devan [place] [id number] Gini Snow MD PCP - General 09/27/18 10/11/18 Jennifer Reid NP Assigned PCP 02/18/21 [address], [address] [place] [id number] documented as of this encounter
--- OUTSIDE RECORDS SUMMARY | 2022-06-15 11:08 | XMS_ITS | Encounter Summary ---
:1955 Author Organization [place] Address [address] [place] [address] Care Team Providers Name Role Phone Jennifer Reid NP Primary Care Provider Jennifer Reid NP Primary Care Provider Jagdeep Eng Primary Care Provider Gini Snow MD Primary Care Provider Jennifer Reid NP Unavailable Encounter Details Date Type Department Care Team Description 07/26/2012 Records - [facility] Jagdeep Eng [facility] [address] [place] [address] [place] [address] [address], [address] [place], [place] Prof [facility] [address] [place], [place] [phone] (Work) [phone] Social History Tobacco Use Types Packs/Day Years Used Date Smoking Tobacco: Never Assessed Sex Assigned at Date Recorded Female 11/25/2020 4:39 PM CDT documented as of this encounter Plan of Treatment Not on filedocumented as of this encounter Procedures Procedure Name Priority Date/Time Associated Diagnosis Comme nts LIPID PROFILE Routine 07/26/2012 9:58 AM Results for this POSTAL INSPECTOR procedure are i n the results section . documented in this encounter Results (ABNORMAL) Lipid Profile (07/26/2012 9:58 AM POSTAL INSPECTOR) Patholo gist Method Time Signature Triglycerides 52 <150 07/26/2012 [facility] mg/dL 9:58 AM POSTAL INSPECTOR [facility] LDL Cholesterol 133 (H) <130 07/26/2012 [facility] Calculated mg/dL 9:58 AM POSTAL INSPECTOR [facility] Direct Measure 81 >39 mg/dL 07/26/2012 [facility] HDL 9:58 AM POSTAL INSPECTOR [facility] Cholesterol 224 (H) <200 07/26/2012 [facility] mg/dL 9:58 AM POSTAL INSPECTOR [facility] Specimen Anatomical Collection Method Collection Time Receive d Time (Source) Location / / Volume Laterality 07/26/2012 9:58 AM 2 9:58 POSTAL INSPECTOR AM POSTAL INSPECTOR Jagdeep Eng LAB - BLOOD ORDERABLES Performing Organization Address City/State/ZIP Code [place] [address] [address] [facility] documented in this encounter Visit Diagnoses Not on filedocumented in this encounter Care Teams Director Of Quality Control Relationship Specialty Start Date End Date Jennifer Reid NP PCP - General 10/12/18 11/02/18 Jennifer Reid NP PCP - General 11/15/18 11/19/18 Jagdeep Eng PCP - General 02/21/08 09/26/[address] [place] [id number] Gini Snow MD PCP - General 09/27/18 10/11/18 Jennifer Reid NP Assigned PCP 02/18/21 [address] [place] [address] documented as of this encounter
--- OUTSIDE RECORDS SUMMARY | 2022-06-15 11:08 | XMS_ITS | Encounter Summary ---
:1955 Author Organization [place] Address [facility] [place] [address] Care Team Providers Name Role Phone Jennifer Reid NET DEVELOPER SOFTWARE ENGINEER C Primary Care Provider Jennifer Reid NET DEVELOPER SOFTWARE ENGINEER C Primary Care Provider Jagdeep Eng Primary Care Provider Gini Snow MD Primary Care Provider Reason for Visit Reason Comments Results PRE-OP. H\T\P, LABS AND EKG Encounter Details Date Type Department Care Team Description 07/17/2015 [facility] Juvenal Eng [facility] [address] [place] [address] [place] [address] Results (PRE-OP. [facility] Provider, Historical H\T\P, LABS AND [place] EKG) [address] [place] [address] S, [address] [place] [address] Social History Tobacco Use Types Packs/Day Years Used Date Smoking Tobacco: Never Assessed Sex Assigned at Date Recorded Female 11/25/2020 4:39 PM CDT documented as of this encounter Plan of Treatment Not on filedocumented as of this encounter Visit Diagnoses Not on filedocumented in this encounter Care Teams Blender Conveyor Operator Relationship Specialty Start Date End Date Jennifer Reid NP PCP - General 10/12/18 11/02/18 Jennifer Reid NP PCP - General 11/15/18 11/19/18 Jagdeep Eng PCP - General 02/21/08 09/26/[address] [place] [address] Gini Snow MD PCP - General 09/27/18 documented as of this encounter
[2022-06-15 14:42] LABS: Cholesterol* 251 mg/dL (90-199); HDL Cholesterol* 71 mg/dL (>=50); LDL Cholesterol Calculated 161 mg/dL (<100); Triglycerides* 97 mg/dL (40-149)
[2022-06-15 15:02] LABS: Vitamin D 25 Hydroxy* 45 ng/mL (30-80)
== END 2022-06-15 11:04 | disposition home or self-care (01) ==
PROVIDERS: PCP Internal Medicine; Visit Provider Internal Medicine
DX: Z01.419 Encounter for gynecological examination (general) (routine) without abnormal findings (principal); E78.5 Hyperlipidemia, unspecified; M85.80 Other specified disorders of bone density and structure, unspecified site
CPT/HCPCS: 80061; 82306

== ENCOUNTER 2022-12-24 07:55 | Outpatient (CLI) | payer MEDICARE, BC, SELFPAY ==
--- OUTSIDE RECORDS SUMMARY | 2022-12-25 19:43 | XMS_ITS | Continuity of Care Document ---
Author Name Unknown Organization [facility] Address [address] [address] [place] [address] Phone Care Team Providers Care Telegraph Inspector Name Role Phone Dany Kohler DO Unavailable Unavailable Medications Medication Instructions Dosage Effective Dates (start - stop) Status Comments CRANBERRY (unknown strength) Not Available - Active multivitamin Cap Take 1 tablet by mouth daily - Active Fish Oil 500 mg Cap, Delayed Release Use as directed - Active Procedures Procedure Date Colonoscopy Flex; Dx (sep Pro) Colonoscopy Flex; Dx (sep Pro) Advance Directives Directive Yes / No Effective Date File Name No Information Encounters Encounter Description Practice Location Reason(s) For Visit Diagnoses Date Provider Providers Copied on Encounter [facility] [place], [address] [address], [place], [id number], [place] tel:[phone] [facility] No Information Jose F Smith. [address] [facility], [address], [place], [place], [id number] , [place]. [phone] [facility] [place], [address] [address], [place], [id number], [place] tel:[phone] [facility] Screening ColonoscopyEncoun ter for screening for malignant neoplasm of colon 8 Jose F Smith. [address] [facility], [address], [place], [place], [id number] , [place]. tel:[phone] Referring Provider: Referral Self. [facility], [address] [address], [place], [id number], [place] tel:[phone] Jos [facility] Colon Cancer Screening Layne Estevez. [address] [facility], [facility] [address], [place], [id number] , [place]. tel:[phone] Family History Family Member Type Diagnosis Age At Onset No Information Payers Payer name Insurance type Covered democrat ID Authoriza tion(s) No Information Social History Type Description Quantity Date Captured Comments Sex Female Smoking Status No Information Chief Complaint And Reason For Visit No Information Reason For Referral Reason For Referral No Information Plan Of Treatment Date Type Action Status No Information History Of Present Illness Encounter Date Complaint History Of Prese nt Illness No Information Functional Status Date Functional Assessmen t No Information Instructions Date Instruction Additional Infor simeon Colon Cancer Prevention Related to Screening Colonoscopy Assessments Type Assessment Date No Information Patient Care Teams Name Effective Dates (start - stop) Status Members No Information
== END 2022-12-24 07:56 | disposition home or self-care (01) ==
LOC: NFLDREF 12-25 19:41
PROVIDERS: PCP Internal Medicine; Referring Provider Internal Medicine; Visit Provider Internal Medicine
DX: E78.5 Hyperlipidemia, unspecified (principal)
CPT/HCPCS: 80061

== ENCOUNTER 2023-08-17 10:45 | Outpatient (CLI) | payer MEDICARE, BC, SELFPAY | END 2023-08-17 10:46 | disposition home or self-care (01) | LOC: NFLDREF 08-19 14:23 | PROVIDERS: PCP Internal Medicine; Referring Provider Internal Medicine; Visit Provider Internal Medicine | DX: E78.5 Hyperlipidemia, unspecified (principal) | CPT/HCPCS: 80061 ==

== ENCOUNTER 2023-11-28 07:45 | Outpatient (CLI) | payer MEDICARE, BC, SELFPAY | END 2023-11-28 07:46 | disposition home or self-care (01) | LOC: NFLDREF 11-30 06:14 | PROVIDERS: PCP Internal Medicine; Referring Provider Internal Medicine; Visit Provider Internal Medicine | DX: E78.5 Hyperlipidemia, unspecified (principal) | CPT/HCPCS: 80061 ==

== ENCOUNTER 2024-02-29 13:17 | Outpatient (CLI) | payer MEDICARE, BC, SELFPAY ==
--- OUTSIDE RECORDS SUMMARY | 2024-02-29 13:22 | XMS_ITS | Encounter Summary ---
Author Organization [place] Address [address] [facility] [place] [address] Care Team Providers Care Weight Calculator Name Role Phone Jennifer Reid NP Unavailable Jennifer Reid NP Primary Care Provider Sofia Lara MD Primary Care Provider [facility] Unavai lable Encounter Details Date Type Department Care Team (Late st Contact Info) Description 12/25/2020 Records - [facility] Krysta Marino MD [address] [facility] [address] [place] [address] Social History Tobacco Use Types Packs/Day Years Used Date Smoking Tobacco: Never Assessed Sex and Gender Information Value Date Recorded Sex Assigned at Female 11/25/2020 4:39 PM CDT Gender Identity Female 11/25/2020 4:39 PM CDT Sexual Orientation Straight 11/25/2020 4: 39 PM CDT documented as of this encounter Plan of Treatment Not on file documented as of this encounter Visit Diagnoses Not on filedocumented in this encounter Care Teams Weight Calculator Relationship Specialty Start Date End Date Jennifer Reid NP [address] [facility] [address] [place] [address] PCP - General 02/11/22 11/02/22 Sofia Lara MD [facility] [address] [place] [address] PCP - General Internal Medicine 02/16/23 Jennifer Reid NP [address] [place] [address] Assigned PCP 02/18/21 09/28/23 Clinic - [place] [facility] [address] [place] [address] Assigned PCP 09/29/23 02/25/24 documented as of this encounter
--- OUTSIDE RECORDS SUMMARY | 2024-02-29 13:22 | XMS_ITS | Encounter Summary ---
Author Organization [place] Address [address] [place] [address] Care Team Providers Care Outreach Representative Name Role Phone Jennifer Reid NP Primary Care Provider Jennifer Reid NP Primary Care Provider [phone] Jagdeep Eng Primary Care Provider [phone] Gini Snow MD Primary Care Provider + [phone] Jennifer Reid NP Unavailable [phone] Jennifer Reid NP Primary Care Provider Sofia Lara MD Primary Care Provider [phone] Clinic - [facility] Unavai lable Encounter Details Date Type Department Care Team (Late st Contact Info) Description 05/17/2016 Records - [facility] CONVERSION Scan, Non-Provider [...] on filedocumented in this encounter Care Teams Outreach Representative Relationship Specialty Start Date End Date Jennifer Reid NP PCP - General 10/12/18 11/02/18 Jennifer Reid NP PCP - General 11/15/18 11/19/18 Jagdeep Eng [address] [place] [address] PCP - General 02/21/08 09/26/18 Gini Snow MD [address] [place] [address] PCP - General 09/27/18 10/11/18 Jennifer Reid NP [address] [place] [address] [place] [address] [place] [address] PCP - General 02/11/22 11/02/22 Sofia Lara MD [facility] - [address] [address] PCP - General Internal Medicine 02/16/23 Jennifer Reid NP [address] [place] [address] Assigned PCP 02/18/21 09/28/23 Clinic - Markel Pruitt [address] [place] [address] Assigned PCP 09/29/23 02/25/24 documented as of this encounter
--- OUTSIDE RECORDS SUMMARY | 2024-02-29 13:22 | XMS_ITS | Referral Summary ---
Author Organization [facility] Address [address] [place] [id number] Care Team Providers Care Branch Rental Manager Name Role Phone Sofia Lara MD Primary Care Provider Allergies Active Allergy Reactions Criticality Noted Date Comments Diphenhydramine Hcl (Sleep) Itching 12/14/19 21 Medications Medication Sig Dispensed Refills Start Date End Date Status multivitamin (MULTIVITAMIN) per tablet [MULTIVITAMIN (MULTIVITAMIN) PER TABLET] 1 tablet daily. 10/13/2014 Active aspirin 81 MG EC tablet [ASPIRIN 81 MG EC TABLET] Take 81 mg by mouth daily. 07/07/2015 Active alendronate (FOSAMAX) 70 MG tabletIndications:Ost eopenia with high risk of fracture [ALENDRONATE (FOSAMAX) 70 MG TABLET] TAKE 1 TABLET BY MOUTH EVERY 7 DAYS. TAKE IN THE MORNING ON AN EMPTY STOMACH WITH A FULL GLASS OF WATER, 30 MINUTES BEFORE FOOD 12 tablet 3 02/07/2020 Active Active Problems Problem Noted Date Diagnosed Date Osteopenia with high risk of fracture 01/23/2021 Postmenopausal status 11/15/2018 Atypical melanocytic hyperplasia 07/07/2016 Vitamin D Deficiency Overview: Created by Conversion Replacement Utility updated for latest IMO load Essential Hypercholesterolemia Overview: Created by Conversion Allergic Rhinitis Overview: Created by Conversion Replacement Utility updated for latest IMO load Immunizations Name Administration Dates Next Due COVID-19 MONOVALENT 12+ (Pfizer) 12/24/2020,11/05 DT (PEDS <7y) 02/28/1996 Flu, Unspecified 06/19/2020,06/02/2016, 0 HepA, Unspecified 02/21/2008 Hepatitis A (ADULT 19+) 11/15/2018,07/06/2016, Hepatitis B, Adult 11/15/2018 Influenza (IIV3) PF 07/07/2010 Influenza Vaccine, 6+MO IM ( QUADRIVALENT W/PRESERVATIVES) 07/10/2019,07/04/2018 Pneumo Conj 13-V (2010&after) 07/06/2016 TDAP (Adacel,Boostrix) 11/15/2018,02/21/2008 Td,adult,historic,unspecified 02/21/2008 Typhoid IM 11/15/2018 Zoster recombinant adjuvanted (SHINGRIX) 021,11/15/2018 Zoster vaccine, live 07/06/2016 Social History Tobacco Use Types Packs/Day Years Used Date Smoking Tobacco: Never Smokeless Tobacco: Never Alcohol Use Standard Drinks/Week Comments Yes 0 (1 standard drink = 0.6 oz pur e alcohol) Adolescent Education Answer Date Record ed Getting School Help Needed Not on file 05/28 Sex and Gender Information Value Date Recorded Sex Assigned at Female 11/25/2020 4:39 PM CDT Gender Identity Female 11/25/2020 4:39 PM CDT Sexual Orientation Straight 11/25/2020 4: 39 PM CDT Last Filed Vital Signs Vital Sign Reading Time Taken Comments Blood Pressure 110/66 01/23/2021 11:11 AM CDT Pulse 64 01/23/2021 11:11 AM CDT Temperature 36.8 ??C (98.2 ??F) 01/23/2021 11:11 AM C DT Respiratory Rate 16 01/23/2021 11:11 AM CDT Oxygen Saturation 99% 01/23/2021 11:11 AM CDT Inhaled Oxygen Concentration - - Weight 63.7 kg (140 lb 7 oz) 01/23/2021 11:11 AM CDT Height 162.6 cm (5' 4) 01/23/2021 11:11 AM CDT Body Mass Index 24.11 01/23/2021 11:11 AM CDT Plan of Treatment Not on file Procedures Procedure Name Priority Date/Time Associated Diagnosis Comments MA SCREENING BILATERAL W/ JEZ Routine 02/17/2023 11:17 AM CDT Visit for screening mammogram DX BONE DENSITY Routine 01/27/2021 4:24 PM CDT Asymptomatic menopausal state Other specified disorders of bone density and structure, unspecified site GYNECOLOGIC CYTOLOGY Routine 01/23/2021 12:46 PM CDT BASIC METABOLIC PANEL Routine 01/23/2021 12:00 PM CDT HEPATITIS C ANTIBODY Routine 01/23/2021 12:00 PM CDT LIPID PROFILE Routine 01/23/2021 12:00 PM CDT COLONOSCOPY - HIM SCAN 06/22/2018 from Last 3 Months or Most Recently Relevant to Health Maintenance Results * MA Screening Bilateral w/ Jez (02/17/2023 11:17 AM CDT) Anatomical Region Laterality Modality Breast Bilateral Mammography Impressions 02/17/2023 11:23 AM CDT IMPRESSION: ACR BI-RADS Category 1: Negative RECOMMENDED FOLLOW-UP: Annual routine screening mammogram The results and recommendations of this examination will be communicated to the patient. Ren Saldana MD Narrative 02/17/2023 11:23 AM CDT BILATERAL FULL FIELD DIGITAL SCREENING MAMMOGRAM WITH TOMOSYNTHESIS Performed on: 02/17/23 Compared to: 02/16/2022 and 10/10/2018 Technique: ??This study was evaluated with the assistance of Computer-Aided Detection. ??Breast Tomosynthesis was used in interpretation. Findings: The breasts have scattered areas of fibroglandular density. ?? There is no radiographic evidence of malignancy. Screening Mammogram Selfreferral IMG [facility] MOGRAPHY ORDERABLES * DX Hip/Pelvis/Spine (01/27/2021 4:24 PM CDT) Anatomical Region Laterality Modality Dexa Other Narrative 01/28/2021 4:15 PM CDT 01/27/2021 RE: [...] 1. The spine bone density L1-L4 with T-score -1.6, and significant improvement of 3.9 % compared to 2019. 2. Femoral bone densities show left femoral neck T- score -2.1 and right femoral neck T-score -2.2, and significant improvement of 4.1% on the left hip and 4.3% on the right hip compared to 2019. 3. Trabecular bone score indicates poor trabecular bone architecture. 65 y.o. female with LOW BONE DENSITY (OSTEOPENIA) and MODERATE fracture risk, adjusted for the TBS, with major osteoporotic fracture risk 14.5% and hip fracture risk 2.8%. Recommendations: Appropriate calcium, vitamin D supplements, along with balance and weight bearing exercise recommended with follow up bone density scan in 2 years. Bone densitometry was performed on your patient using our [employer] densitometer. The results are summarized and a copy of the actual scans are included for your review. In conformity with the International Society of Clinical Densitometry's most recent position statement for DXA interpretation (2015), the diagnosis will be made on the lowest measured T-score of the lumbar spine, femoral neck, total proximal femur or 33% radius. Note the change in terminology for diagnostic classification from OSTEOPENIA to LOW BONE MASS. All trending for sequential exams will be done using multiple vertebrae or the total proximal femur. Fracture risk is based on the WHO Fracture Risk Assessment Tool (FRAX). If additional information is needed or if you would like to discuss the results, please do not hesitate to call me. Thank you for referring this patient to [facility]. We are happy to be of service in support of you and your practice. If you have any questions or suggestions to improve our service, please call me at [phone]. Sincerely, Ruben Durbin. [facility] Procedure Note Joni Tiffanie - 02/17/2021 01/27/2021 RE: Cindy Duarte Date of : 1955 Dear Jennifer Reid, Patient Profile: 65 y.o. female, postmenopausal, is here for the follow up bone densitytest. History of fractures ? None. Family history of osteoporosis - None.Family history of hip fracture: None. Smoking history - No. Osteoporosistreatment past ? Yes; Bisphosphonates. Osteoporosis treatment current ? No. Chronic medical problems - None. High risk medications ? None. Assessment: 1. The spine bone density L1-L4 with T-score -1.6, and significantimprovement of 3.9 % compared to 2019. 2. Femoral bone densities show left femoral neck T- score -2.1 and rightfemoral neck T-score -2.2, and significant improvement of 4.1% on the lefthip and 4.3% on the right hip compared to 2019. 3. Trabecular bone score indicates poor trabecular bone architecture. 65 y.o. female with LOW BONE DENSITY (OSTEOPENIA) and MODERATE fracturerisk, adjusted for the TBS, with major osteoporotic fracture risk 14.5%and hip fracture risk 2.8%. Recommendations: Appropriate calcium, vitamin D supplements, along with balance and weightbearing exercise recommended with follow up bone density scan in 2years. Bone densitometry was performed on your patient using our [email or web address] iDXAdensitometer. The results are summarized and a copy of the actual scansare included for your review. In conformity with the International Societyof Clinical Densitometry's most recent position statement for DXA interpretation (2015), the diagnosiswill be made on the lowest measured T-score of the lumbar spine, femoralneck, total proximal femur or 33% radius. Note the change in terminologyfor diagnostic classification from OSTEOPENIA to LOW BONE MASS. All trending for sequential exams will bedone using multiple vertebrae or the total proximal femur. Fracture riskis based on the WHO Fracture Risk Assessment Tool (FRAX). If additionalinformation is needed or if you would like to discuss the results, please do not hesitate to call me. Thank you for referring this patient to [facility]. We are happy to be of service in support of you and yourpractice. If you have any questions or suggestions to improve our service,please call me at [phone]. Sincerely, Tiffanie Quinones M.D. [place]. [facility] Jennifer Reid NP IMG DEXA ORDERABLES * Gynecologic Cytology (PAP Smear) (01/23/2021 12:46 PM CDT) Case Report Gynecologic Cytology Report ? Case: [id number] ? Authorizing Provider: ??Jennifer Reid, DANITZA ?Collected: ? 01/23/2021 1246 ? Ordering Location: ? [facility] ?? Received: ?01/23/2021 1246 ? Devan Monsivais ? First Screen: ?Elyse Alvarez, CT ? (ASCP) ? Specimen: ?SUREPATH PAP, DIAGNOSTIC, Endocervical/cer vical ? 1 1:28 PM CDT Interpretation Negative for squamous intraepithelial lesion or malignancy at ??1:28 PM Negative for squamous intraepithelial lesion or malignancy. 1 1:28 PM CDT Result Flag Normal Normal 1 1:28 PM CDT Specimen Adequacy Satisfactory for evaluation, endocerv/transfo rmation zone component absent, atrophy 1 1:28 PM CDT Reflex Testing Yes regardless of result 1 1:28 PM CDT High Risk? No 1 1:28 PM CDT LMP/Menopause Date 2010 1 1:28 PM CDT Abnormal Bleeding No 1 1:28 PM CDT Patient Status postmenopausal 1 1:28 PM CDT Control/Hormone s None 1 1:28 PM CDT Previous Normal 2014 1 1:28 PM CDT Previous Abnormal? no 1 1:28 PM CDT Cervical Appearance normal 1 1:28 PM CDT Specimen from genital system (specimen) CERVIX UTERI STRUCTURE / Unknown 01/23/2021 12:46 PM CDT 01/26/2021 6:43 AM CDT Jennifer CROCKETT * (ABNORMAL) Lipid Profile (01/23/2021 12:00 PM CDT) Pathologist [facility] Cholesterol 237(H) <=199 mg/dL 01/23/2021 6:19 PM CDT Triglycerides 103 <=149 mg/dL 01/23/2021 6:19 PM CDT Direct Measure HDL 66 >=50 mg/dL 2020 6:19 PM CDT LDL Cholesterol Calculated 150(H) <=129 mg/dL 01/23/2021 6:19 PM CDT Patient Fasting > 8hrs? Yes 01/23/2021 6:19 PM CDT Blood specimen (specimen) Venipuncture / Unknown 01/23/2021 12:00 PM CDT 01/23/2021 5:36 PM CDT Jennifer Reid NP LAB - BLOOD ORDERABL ES * Hepatitis C antibody (01/23/2021 12:00 PM CDT) Pathologist [facility] Hepatitis C Antibody Negative Negative 01/26/2021 8:48 AM CDT Blood specimen (specimen) Venipuncture / Unknown 01/23/2021 12:00 PM CDT 01/23/2021 5:36 PM CDT Jennifer Reid NP LAB - BLOOD ORDERABL ES * Basic metabolic panel (01/23/2021 12:00 PM CDT) Pathologist [facility] Sodium 141 136 - 145 mmol/L 01/23/2021 6:19 PM CDT Potassium 4.3 3.5 - 5.0 mmol/L 01/23/2021 6:19 PM CDT Chloride 103 98 - 107 mmol/L 01/23/2021 6:19 PM CDT Carbon Dioxide (CO2) 29 22 - 31 mmol/L 01/23/2021 6:19 PM CDT Anion Gap 9 5 - 18 mmol/L 01/23/2021 6:19 PM CDT Glucose 87 70 - 125 mg/dL 01/23/2021 6:19 PM CDT Calcium 8.8 8.5 - 10.5 mg/dL 01/23/2021 6:19 PM CDT Urea Nitrogen 12 8 - 22 mg/dL 01/23/2021 6:19 PM CDT Creatinine 0.73 0.60 - 1.10 mg/dL 01/23/2021 6:19 PM CDT GFR Estimate If Black >60 >60 mL/min/1.7 3m2 01/23/2021 6:19 PM CDT GFR Estimate >60 >60 mL/min/1.7 3m2 01/23/2021 6:19 PM CDT Blood specimen (specimen) Venipuncture / Unknown 01/23/2021 12:00 PM CDT 01/23/2021 5:36 PM CDT Narrative 01/23/2021 6:19 PM CDT Fasting Glucose reference range is 70-99 mg/dL per [place] Diabetes Association (ADA) guidelines. Jennifer Reid NP LAB - BLOOD ORDERABL ES * COLONOSCOPY - HIM SCAN (06/22/2018) Historical Provider PROCEDURES from Last 3 Months or Most Recently Relevant to Health Maintenance Care Teams Branch Rental Manager Relationship Specialty Start Date End Date Sofia Lara MD [facility] [address] [place] [address] PCP - General Internal Medicine 02/16/23
--- OUTSIDE RECORDS SUMMARY | 2024-02-29 13:22 | XMS_ITS | Clinical Summary ---
Author Organization [facility] Address [address] [place] [address] Care Team Providers Care Superintendent Mechanical Name Role Phone Sofia Lara MD Primary [...] adjuvanted (SHINGRIX) 021,11/15/2018 Zoster vaccine, live 07/06/2016 Family History Medical [...] OF HM ORDERS 1955 CT COLONOGRAPHY 1955 FIT 1955 FLEX SIG 1955 sDNA (Cologuard) 1955 RSV VACCINE ( & 60+) (1 - 1-dose 60+ series) 2016 FALL RISK ASSESSMENT 2021 LIPID 01/23/2022 01/23/2021, 11/03, 07/26/2016, Additional history exists MEDICARE ANNUAL WELLNESS VISIT 01/23/2022 01/23/2021, 11/15/2018, 07/06/2016, Additional history exists DEXA 01/27/2022 01/27/2021, 11/03, 11/21/2018 COVID-19 Vaccine ( season) 2023 06/09/2022, 07/24/2021, 12/24/2020, Additional history exists PHQ-2 (once per calendar year) 2023 GLUCOSE 01/24/2024 01/23/2021, 11/15/2018 INFLUENZA VACCINE (Season Ended) 2024 06/09/2022, 08/24/2021, 06/19/2020, Additional history exists MAMMO SCREENING 02/17/2025 02/17/2023, 02/03, 01/16/2021, Additional history exists ADVANCE CARE PLANNING 01/23/2026 01/23/2021 COLONOSCOPY 06/22/2028 06/22/2018 COLORECTAL CANCER SCREENING 06/22/2028 DTAP/TDAP/TD IMMUNIZATION (4 - Td or Tdap) 11/15/2028 11/15/2018, 02/21/2008, 02/21/2008 HEPATITIS C SCREENING Completed 01/23/2021 PAP Discontinued 01/23/2021, 05/2 09/2020, 01/23/2021, Additional history exists ZOSTER IMMUNIZATION Completed 01/23/2021, 11/15/2018, 07/06/2016 Pneumococcal Vaccine: 65+ Years Completed 06/15/2022, 07/06/2016 HPV IMMUNIZATION Aged Out No longer e ligible based on patient's age to complete this topic IPV IMMUNIZATION Aged Out No longer e ligible based on patient's age to complete this topic MENINGITIS IMMUNIZATION Aged Out No l onger eligible based on patient's age to complete this topic RSV MONOCLONAL ANTIBODY Aged Out No l onger eligible based on patient's age to complete this topic Procedures Procedure Name Priority Date/Time Associated Diagnosis [...] radiographic evidence of malignancy. Screening Mammogram Selfreferral [facility] MOGRAPHY ORDERABLES * DX Hip/Pelvis/Spine (01/27/2021 4:24 [...] was performed on your patient using our [employer] densitometer. The results are summarized and a [...] Thank you for referring this patient to [facility]. We are happy to be of service in support of you and your practice. If you have any questions or suggestions to improve our service, please call me at [phone]. Sincerely, Ruben Durbin. [facility] Procedure Note Tiffanie Quinones - 02/17/2021 01/27/2021 RE: Cindy Duarte Date [...] was performed on your patient using our [employer] iDXAdensitometer. The results are summarized and a [...] Thank you for referring this patient to [facility]. We are happy to be of service in support of you and yourpractice. If you have any questions or suggestions to improve our service,please call me at [phone]. Sincerely, Ruben Durbin. [facility] Jennifer Reid NP IMG DEXA ORDERABLES * Gynecologic Cytology (PAP Smear) (01/23/2021 12:46 PM CDT) Case Report Gynecologic Cytology Report ? Case: [id number] ? Authorizing Provider: ??Jennifer Reid NP ?Collected: ? 01/23/2021 1246 ? Ordering Location: ? [facility] ?? Received: ?01/23/2021 1246 ? Devan [...] PM CDT 01/26/2021 6:43 AM CDT Jennifer Reid NP LAB - BEAKER AP * (ABNORMAL) Lipid Profile (01/23/2021 12:00 PM CDT) Cholesterol 237(H) <=199 mg/dL 01/23/2021 6:19 PM [...] Hepatitis C antibody (01/23/2021 12:00 PM CDT) Hepatitis C Antibody Negative Negative 01/26/2021 8:48 AM CDT Blood specimen (specimen) Venipuncture / Unknown 01/23/2021 12:00 PM CDT 01/23/2021 5:36 PM CDT Jennifer Reid NP LAB - BLOOD ORDERABL ES * Basic metabolic panel (01/23/2021 12:00 PM CDT) Sodium 141 136 - 145 mmol/L 01/23/2021 [...] Glucose reference range is 70-99 mg/dL per [place] Diabetes Association (ADA) guidelines. Jennifer Reid NP LAB - BLOOD ORDERABL ES * COLONOSCOPY - HIM SCAN (06/22/2018) Historical Provider PROCEDURES from Last 3 Months or Most Recently Relevant to Health Maintenance Care Teams Superintendent Mechanical Relationship Specialty Start Date End Date Sfoia Lara MD [facility] [address] [place] [address] PCP - General Internal Medicine 02/16/23
--- OUTSIDE RECORDS SUMMARY | 2024-02-29 13:22 | XMS_ITS | Encounter Summary ---
Author Organization [facility] Address [address] [place] [address] Care Team Providers Care Per Diem Name Role Phone Jennifer Reid NP Unavailable [phone] Jennifer Reid NP Primary Care Provider [phone] Sofia Lara MD Primary Care Provider [facility] Unavai lable Encounter Details Date Type Department Care Team (Late st Contact Info) Description 01/23/2021 Records - [facility] CONVERSION [...] on filedocumented in this encounter Care Teams Per Diem Relationship Specialty Start Date End Date Jennifer Reid NP [address] [place] [address] [address] PCP - General 6/9/22 2/28/23 Sofia Lara MD [facility] [address] [place] [address] PCP - General Internal Medicine 02/16/23 Jennifer Reid NP [address] [place] [address] Assigned PCP 02/18/21 09/28/23 Clinic - [address] [id number] Assigned PCP 09/29/23 02/25/24 documented as of this encounter
--- OUTSIDE RECORDS SUMMARY | 2024-02-29 13:22 | XMS_ITS | Encounter Summary ---
Author Organization [place] Address [address] [facility] [place] [address] Care Team Providers Care Category Specialist Name Role Phone Jennifer Reid NP Unavailable [phone] Jnenifer Reid NP Primary Care Provider Sofia Lara MD Primary Care Provider [phone] [facility] Unavai lable Encounter Details Date Type Department Care Team (Late st Contact Info) Description 12/04/2020 Records - [facility] Krysta Marino MD [address] [place] [id number] Social History Tobacco Use Types Packs/Day Years [...] on filedocumented in this encounter Care Teams Category Specialist Relationship Specialty Start Date End Date Jennifer Reid NP [address] [place] [address] [place] [address] PCP - General 02/11/22 11/02/22 Sofia Lara MD [facility] [address] [place] [address] PCP - General Internal Medicine 02/16/23 Jennifer Reid NP [address] [place] [address] Assigned PCP 02/18/21 09/28/23 Clinic - Devan Monsivais [facility] [address] [place] [address] Assigned PCP 09/29/23 02/25/24 documented as of this encounter
--- NOTE | 2024-02-29 13:30 | CRLHL7_ITS ---
For Patients: As a result of the Century Cures Act, medical imaging exams and procedure reports are released immediately into your electronic medical record. You may view this report before your referring provider. If you have questions, please contact your health care provider. DXA BONE MINERAL DENSITY STUDY Current height (in): 63.0. Weight (lb): 140.0. Menopause age: 53. Ethnicity: White. Reason for exam: Screening. 1. Have you had a previous hip or vertebral fracture? No. 2. Have you had any fractures during your adult life which did not result from significant trauma (e.g., auto accident)? No. 3. Did either of your parents have a hip fracture? No. 4. Do you smoke? No. 5. Have you ever taken Glucocorticoids? No. 6. Do you have rheumatoid arthritis? No. 7. Do you have secondary osteoporosis? Yes. 8. Do you drink 3 or more alcoholic drinks per day? No. 9. Are you being treated for osteoporosis? No. 10. Have you ever taken any of the following medications: Actonel, Evista, Fosamax, Miacalcin, Reclast, Boniva, Forteo, HRT (i.e. estrogen/hormone therapy), Protelos, Prolia, Vitamin D, Calcium, other ??? please specify. ANSWER: Yes, Fosamax, vitamin D, calcium. 11. Do you have any of the following medical conditions: Anorexia or bulimia, asthma or emphysema, end stage renal disease, hyperparathyroidism, any seizure disorders, cancer, inflammatory bowel diseases, hysterectomy, other ??? please specify. ANSWER: No. 12. What was your maximum height (inches)? 64. 13. Do you perform weight bearing exercise regularly? Yes. 14. Do you regularly consume dairy products? No. 15. Do you drink caffeinated beverages? Yes. 16. At what age did your period start? 12. 17. Are you premenopausal? No. 18. How many full-term pregnancies have you had? 4. 19. Have you ever missed your period for more than 6 months in a row (not including or menopause)? No. TECHNIQUE: Bone mineral density study was performed using the [employer]. FINDINGS: The results of the study expressed as bone mineral density (BMD) are as follows: Lumbar spine L1 to L4: BMD: 0.858 g/cm2. T-score: -1.7. Z-score: 0.2 Neck Left: BMD: 0.616 g/cm2. T-score: -2.1. Z-score: -0.4 Right: BMD: 0.609 g/cm2. T-score: -2.2. Z-score: -0.5 Total Left: BMD: 0.776 g/cm2. T-score: -1.4. Z-score: 0.0 Right: BMD: 0.750 g/cm2. T-score: -1.6. Z-score: -0.2 IMPRESSION: Osteopenia. FRAX 10-year Fracture Risk Major Osteoporotic Fracture: 12 percent Hip Fracture: 2.3 percent Reported Risk Factors: [place] () Neck BMD = 0.609, BMI = 24.8 Chirag Owens M.D. Body/Interventional Radiologist [email or web address] Transcribed: 1:27 pm DW/Dictated by: Chirag Owens MD @ 03/02/2024 12:24:00 PM (Electronically Signed)
== END 2024-02-29 13:18 | disposition home or self-care (01) ==
LOC: RAD 13:19
PROVIDERS: PCP Internal Medicine; Visit Provider Internal Medicine
DX: Z13.820 Encounter for screening for osteoporosis (principal); M85.89 Other specified disorders of bone density and structure, multiple sites
CPT/HCPCS: 77080

== ENCOUNTER 2024-05-08 13:34 | Outpatient (CLI) | payer MEDICARE, BC, SELFPAY ==
--- OUTSIDE RECORDS SUMMARY | 2024-05-08 13:37 | XMS_ITS | Encounter Summary ---
Author Organization [place] Address [address] [place] [address] Care Team Providers Care Sponge Packer Name Role Phone Jennifer Reid NP Primary Care Provider [phone] Jennifer Reid NP Primary Care Provider [phone] Jagdeep Eng Primary Care Provider [phone] Gini Snow MD Primary Care Provider [phone] Jennifer Reid NP Unavailable [phone] Jennifer Reid NP Primary Care Provider [phone] Sofia Lara MD Primary Care Provider Clinic - [facility] Unavai lable Encounter Details Date Type Department [...] on filedocumented in this encounter Care Teams Sponge Packer Relationship Specialty Start Date End Date Jennifer Reid NP PCP - General 10/12/18 11/02/18 Jennifer Reid NP PCP - General 11/15/18 11/19/18 Jagdeep Eng [address] [place] [address] PCP - General 02/21/08 09/26/18 Gini Snow MD [address] [place] [address] PCP - General 09/27/18 10/11/18 Jennifer Reid NP [address] [place] [address] [place] [address] [place] [address] PCP - General 02/11/22 11/02/22 Sofia Lara MD [facility] - [address] [address] PCP - General Internal Medicine 02/16/23 Jennifer Reid NP [address], [address] [place] [address] Assigned PCP 02/18/21 09/28/23 Clinic - [facility] Pruitt [address] [place] [address] Assigned PCP 09/29/23 02/25/24 documented as of this encounter
--- OUTSIDE RECORDS SUMMARY | 2024-05-08 13:37 | XMS_ITS | Clinical Summary ---
Author Organization [place] Address [address] [place] [address] Care Team Providers Care Scientific Recruiter Name Role Phone Sofia Lara MD Primary [...] SIG 1956 sDNA (Cologuard) 1956 RSV VACCINE (1 - 1-dose 60+ series) 2016 FALL RISK ASSESSMENT 2021 LIPID 01/23/2022 01/23/2021, 11/03, 07/26/2016, Additional history exists MEDICARE ANNUAL WELLNESS VISIT 01/23/2022 01/23/2021, 11/15/2018, 07/06/2016, Additional history exists DEXA 01/27/2022 01/27/2021, 11/03, 11/21/2018 COVID-19 Vaccine ( season) 2023 06/09/2022, 07/24/2021, 12/24/2020, Additional history exists PHQ-2 (once per calendar year) 2023 GLUCOSE 01/24/2024 01/23/2021, 11/15/2018 INFLUENZA VACCINE (#1) 2024 , 08/24/2021, 06/19/2020, Additional history exists MAMMO SCREENING 02/17/2025 02/17/2023, 02/03, 01/16/2021, Additional history exists ADVANCE CARE PLANNING 01/23/2026 01/23/2021 COLONOSCOPY 06/22/2028 06/22/2018 COLORECTAL CANCER SCREENING 06/22/2028 DTAP/TDAP/TD IMMUNIZATION (4 - Td or Tdap) 11/15/2028 11/15/2018, 02/21/2008, 02/21/2008 HEPATITIS C SCREENING Completed 01/23/2021 PAP Discontinued 01/23/2021, 052 09/2020, 01/23/2021, Additional history exists ZOSTER IMMUNIZATION [...] evidence of malignancy. Screening Mammogram Selfreferral IMG [facility] MOGRAPHY ORDERABLES * DX Hip/Pelvis/Spine (01/27/2021 4:24 [...] was performed on your patient using our Carlotz densitometer. The results are summarized and a [...] Thank you for referring this patient to [facility]. We are happy to be of service in support of you and your practice. If you have any questions or suggestions to improve our service, please call me at [phone]. Sincerely, Tiffanie Quinones M.D. [place]. [facility] Procedure Note Tiffanie [...] was performed on your patient using our BoomBangXAdensitometer. The results are summarized and a copy [...] Thank you for referring this patient to [facility]. We are happy to be of service in support of you and yourpractice. If you have any questions or suggestions to improve our service,please call me at [phone]. Sincerely, Ruben DurbinCLawrence. [facility] Jennifer Reid NP IMG DEXA ORDERABLES * Gynecologic Cytology (PAP Smear) (01/23/2021 12:46 PM CDT) Case Report Gynecologic Cytology Report ? Case: [id number] ? Authorizing Provider: ??Jennifer Reid NP ?Collected: ? 01/23/2021 1246 ? Ordering Location: ? [facility] ?? Received: ?01/23/2021 1246 ? [place] ? First Screen: ?Elyse Alvarez CT ? (ASCP) ? Specimen: ?SUREPATH [...] Lipid Profile (01/23/2021 12:00 PM CDT) Pathologist [facility] Cholesterol 237(H) <=199 mg/dL 01/23/2021 6:19 PM [...] C antibody (01/23/2021 12:00 PM CDT) Pathologist [facility] Hepatitis C Antibody Negative Negative 01/26/2021 8:48 AM CDT Blood specimen (specimen) Venipuncture / Unknown 01/23/2021 12:00 PM CDT 01/23/2021 5:36 PM CDT Jennifer Reid NP LAB - BLOOD ORDERABL ES * Basic metabolic panel (01/23/2021 12:00 PM CDT) Pathologist [facility] Sodium 141 136 - 145 mmol/L 01/23/2021 [...] Glucose reference range is 70-99 mg/dL per [place] Diabetes Association (ADA) guidelines. Jennifer Reid NP LAB - BLOOD ORDERABL ES * COLONOSCOPY - HIM SCAN (06/22/2018) Historical Provider PROCEDURES from Last 3 Months or Most Recently Relevant to Health Maintenance Care Teams Scientific Recruiter Relationship Specialty Start Date End Date Sofia Lara MD [facility] [address] [place] [address] PCP - General Internal Medicine 02/16/23
--- OUTSIDE RECORDS SUMMARY | 2024-05-08 13:37 | XMS_ITS | Encounter Summary ---
Author Organization [place] Address [address] [place] [address] Care Team Providers Care Hot Punch Press Operator Name Role Phone Jennifer Reid NP Unavailable [phone] Jennifer Reid NP Primary Care Provider Sofia Lara MD Primary Care Provider [phone] [facility] Unavai lable Encounter Details Date [...] on filedocumented in this encounter Care Teams Hot Punch Press Operator Relationship Specialty Start Date End Date Jennifer Reid NP [address] [place] [address] PCP - General 6/9/22 2/28/23 Sofia Lara MD [facility] [address] [place] [address] PCP - General Internal Medicine 02/16/23 Jennifer Reid NP [address] [place] [address] Assigned PCP 02/18/21 09/28/23 Clinic - [address] [id number] Assigned PCP 09/29/23 02/25/24 documented as of this encounter
--- OUTSIDE RECORDS SUMMARY | 2024-05-08 13:37 | XMS_ITS | Referral Summary ---
Author Organization [place] Address [address] [place] [address] Care Team Providers Care Ski Edge Painter Name Role Phone Sofia Lara MD Primary [...] evidence of malignancy. Screening Mammogram Selfreferral IMG [facility] MOGRAPHY ORDERABLES * DX Hip/Pelvis/Spine (01/27/2021 [...] was performed on your patient using our SecureWorks densitometer. The results are summarized and a [...] Thank you for referring this patient to [facility]. We are happy to be of service in support of you and your practice. If you have any questions or suggestions to improve our service, please call me at [phone]. Sincerely, Ruben Durbin. [facility] Procedure Note Joni Tiffanie [...] was performed on your patient using our [facility] iDXAdensitometer. The results are summarized and a [...] Thank you for referring this patient to [facility]. We are happy to be of service in support of you and yourpractice. If you have any questions or suggestions to improve our service,please call me at [phone]. Sincerely, Tiffanie Quinones M.D. [place]. [facility] Jennifer Reid NP IMG DEXA ORDERABLES * Gynecologic Cytology (PAP Smear) (01/23/2021 12:46 PM CDT) Case Report Gynecologic Cytology Report ? Case: [id number] ? Authorizing Provider: ??Jennifer Reid, DANITZA ?Collected: ? 01/23/2021 1246 ? Ordering Location: ? [facility] ?? Received: ?01/23/2021 1246 ? [place] [...] Lipid Profile (01/23/2021 12:00 PM CDT) Pathologist [facility] Cholesterol 237(H) <=199 mg/dL 01/23/2021 6:19 PM [...] C antibody (01/23/2021 12:00 PM CDT) Pathologist [facility] Hepatitis C Antibody Negative Negative 01/26/2021 8:48 AM CDT Blood specimen (specimen) Venipuncture / Unknown 01/23/2021 12:00 PM CDT 01/23/2021 5:36 PM CDT Jennifer Reid NP LAB - BLOOD ORDERABL ES * Basic metabolic panel (01/23/2021 12:00 PM CDT) Pathologist [facility] Sodium 141 136 - 145 mmol/L 01/23/2021 [...] Glucose reference range is 70-99 mg/dL per [place] Diabetes Association (ADA) guidelines. Jennifer Reid NP LAB - BLOOD ORDERABL ES * COLONOSCOPY - HIM SCAN (06/22/2018) Historical Provider PROCEDURES from Last 3 Months or Most Recently Relevant to Health Maintenance Care Teams Ski Edge Painter Relationship Specialty Start Date End Date Sofia Lara MD [facility] [address] [place], [place] [id number] PCP - General Internal Medicine 02/16/23
--- OUTSIDE RECORDS SUMMARY | 2024-05-08 13:37 | XMS_ITS | Encounter Summary ---
Author Organization [place] Address [address] [place] [address] Care Team Providers Care R D Manager Name Role Phone Jennifer Reid NP Unavailable [phone] Jennifer Reid NP Primary Care Provider Sofia Lara MD Primary Care Provider [facility] Unavai lable Encounter Details Date Type Department Care Team (Late st Contact Info) Description 12/04/2020 Records - [facility] Krysta Marino MD [address] [place] [id number] Social History Tobacco Use Types Packs/Day Years [...] on filedocumented in this encounter Care Teams R D Manager Relationship Specialty Start Date End Date Jennifer Reid NP [address] [place] [place] [address] PCP - General 02/11/22 11/02/22 Sofia Lara MD [facility] [address] [place] [address] PCP - General Internal Medicine 02/16/23 Jennifer Reid NP [address] [place] [address] Assigned PCP 02/18/21 09/28/23 Clinic - Devan Monsivais [facility] [address] [place] [address] Assigned PCP 09/29/23 02/25/24 documented as of this encounter
--- OUTSIDE RECORDS SUMMARY | 2024-05-08 13:37 | XMS_ITS | Encounter Summary ---
Author Organization [place] Address [address] [facility] [place] [address] Care Team Providers Care Station Detective Name Role Phone Jennifer Reid NP Unavailable [phone] Jennifer Reid NP Primary Care Provider Sofia Lara MD Primary Care Provider [phone] [facility] Unavai lable Encounter Details Date Type Department Care Team (Late st Contact Info) Description 12/25/2020 Records - [facility] Krysta Marino MD [address] [place] [address] Social History Tobacco Use Types Packs/Day Years [...] on filedocumented in this encounter Care Teams Station Detective Relationship Specialty Start Date End Date Jennifer Reid NP [address] [place] [place] [address] PCP - General 02/11/22 11/02/22 Sofia Lara MD [facility] [address] [place] [address] PCP - General Internal Medicine 02/16/23 Jennifer Reid NP [address] [place] [address] Assigned PCP 02/18/21 09/28/23 Clinic - Devan Monsivais [facility] [address] [place] [address] Assigned PCP 09/29/23 02/25/24 documented as of this encounter
--- NOTE | 2024-05-08 13:40 | CRLHL7_ITS ---
For Patients: As a result of the Century Cures Act, medical imaging exams and procedure reports are released immediately into your electronic medical record. You may view this report before your referring provider. If you have questions, please contact your health care provider. BILATERAL SCREENING MAMMOGRAM WITH COMPUTER-AIDED DETECTION AND TOMOSYNTHESIS TECHNIQUE: CC and MLO views were obtained. These mammographic images have been obtained using full-field digital technique. These mammographic images were interpreted with the benefit of computer-aided detection. Breast Tomosynthesis was used in this interpretation. COMPARISON FILM: 02/17/23, 02/16/22, 01/16/21. FINDINGS: There are scattered areas of fibroglandular density IMPRESSION: There is no radiographic evidence for malignancy. ASSESSMENT: BI-RADS Category 2: Benign RECOMMENDATION: Routine screening mammogram in 1 year. A lay language report of this examination will be provided to the patient. Jean Lopez M.D. Diagnostic Radiologist [email or web address] bM/Dictated by: Jean Lopez MD @ 05/10/2024 11:58:00 AM (Electronically Signed)
== END 2024-05-08 13:35 | disposition home or self-care (01) ==
LOC: MAMMO 13:35
PROVIDERS: PCP Internal Medicine; Visit Provider Internal Medicine
DX: Z12.31 Encounter for screening mammogram for malignant neoplasm of breast (principal)
CPT/HCPCS: 77063; 77067

== ENCOUNTER 2024-05-22 08:30 | Outpatient (RCR) | payer MEDICARE, BC, SELFPAY ==
--- NOTE | 2024-03-12 09:22 | PT.OPEX ---
[facility] [place] [facility] Eval PT [facility] Outpatient Eval Start: 03/12/24 07:31 Freq: Status: Active Protocol: Document 03/12/24 07:31 ARR (Rec: 03/12/24 09:19 ARR [id number]) E-signed By Tawnya Bullard DPT Physical Therapy Outpatient Evaluation Insurance Information Recert Due Date 06/10/24 Insurance Name Medicare B Medical Diagnosis N39.3 stress incontinence Treating Diagnosis N39.46 Mixed incontinence ( Urge and stress incontinence) R27.8 Lack of coordination ( muscle incoordination) Referring MD Sofia Lara MD ([facility]) Subjective Preferred Name OPAL Subjective -Subjective: Was at physical and asked for a referral. Leakage seems weird. When having to go to the bathroom when pulling pants down will have leakage. Won?t have a problem with an initial urge can delay without a problem and continue without an issue. Leakage can occur with a sneeze, but not every time. In the AM will sit for a while to empty. -Urinary: --Activity that causes leakage : maybe jumping --Delay of urination: can 10- 15 min --Hydration: drinks at night. During the day maybe 50-60 oz during the day. At night will drink 4 oz 2-3x when waking / coffee 2 cups. --Urinary urgency (any incontinence): no --Strain to start or stop urine stream: to empty will have to strain at times or will relax for a time. Feels like she?s not emptying fully. --Daytime urination: --Nocturia: 3x ? will void just in case when waking up, even without an urge. --Dysuria: 6-7x maybe every 2- 3 hours. But if traveling or going somewhere will void just in case before leaving. --Pressure/heaviness: no --Triggers: pulling pants down -Bowel: --Frequency: 1x/day right away in AM --[place] chart: type 4 --Do you feel bowels fully evacuate with BM: yes --Fecal leakage: no --Fecal urgency: no --Straining with BM: usually no --Flatus incontinence: no --Do you take bowel supplements: takes x 1 gummy probiotic daily -Sexual: Yes pain with initial insertion. Uses lubricant, target generic brand ? [place] perhaps. From behind is best, with partner on top is worst. Ongoing 2 ? years. --Marinoff scale: 2 -Menstrual history: --Painful periods: no --Regular cycles: had perfect cycles --Menopause age: 12-13 yrs ago ? early 50?s -: G/P 02/06 vaginal --Length of labor/pushing: can ?t recall. --Forceps or vacuum: vacuum used with 1st child to turn. Unmedicated. --Tearing or episiotomy:. Episiotomy with a few, can?t remember. OTHER: --Chronic UTIs: Had x 1 in December and then 2-2 1/2 yrs prior --Vaginal dryness: yes -PMHx: osteopenia, foot surgery. -Current exercise: Walks daily 3-4 miles. Goes to [place] in the winter, goes to x 3 wt classes but not in [place]. Does golf. -Orthopedic issues: R knee pain -Goals: wants to reduce leakage and combat this with aging Objective Other/Pertinent Objective INTERNAL EXAMINATION INTRAVAGINAL 03/12/24: EXTERNAL EXAM: -Sensation: intact to touch -Gaping: none -Skin integrity: erythema noted lower ? of vestibule from 3 to 9 oclock. Q-tip test negative. Resorption of inferior labia minora. Vaginal dryness noted. -Perineum: normal -Lifting contraction: nil -Bulge: bulge -Prolapse: none external -Hemhorroids: none VAGINAL INTERNAL EXAM: -Prolapse: descent of anterior wall <1/2 cm above level of hymen with bearing down Tenderness/pain to palpation/ tone: -Layer 3: iliococcygeus Inc?d tone Strength ( R / C / L): -Power (MMT): 2 -Endurance: 5 -Reps: 3 -Fast twitch: nt -Relaxation of PFM after quick contractions: normal Other: -Breathing examination: dec?d posterior and lateral ribcage mvmt with inhalation -Coordination: Breathing holding during attempts at TA bracing Functional Test Performed & Score PFQ: -Bladder 21 -Bowel 0 -Sexual: 14 Total: 35 Assessment Assessment/Impression Pt is a 68 y/o female who presents with concerns of urge incontinence when seeing a toilet and stress incontinence with sneezing, pt also reporting pain with intercourse. Signs and symptoms likely multifactorial including poor vulvar/ vestibule health with erythema lower 1/2 and vaginal dryness - contributing to this includes daily use of pantiliners, washing vaginal tissue with soap, and using irritating lubricant. May also benefit from vaginal estrogen cream. Also contributing includes PFM weakness 2/5 and reduced posterior-lateral expansion. Patient is a good candidate for skilled therapy to target deficits described above. Skilled PT intervention is necessary for use of therapeutic exercise manual therapy, neuromuscular re- education, gait training, and therapeutic activity. Functional impairments include difficulty with: urinary leakage and pain. See appropriate sections of PT eval for complete list of goals and POC. D/C plan and criteria is for pt to achieve the goals as listed below or until max rehab potential is met. Pt was agreeable with plan of care and goals established. Evaluation and internal vaginal PFM assessment/ treatment with patient consent was requested and obtained. Plan of Care Rehabilitation Potential Good Physical Therapy Goals STG (within 5 visits) 1) Pt will demonstrate proper coordination of motor recruitment patterns for PF then TA activation during isometric activation while maintaining diaphragmatic breathing pattern 2)Pt will recall at least 4 strategies to improve pressure management in order to reduce instances of incontinence outside PT sessions LTG (within 10 visits) 1) Pt will demonstrate proper coordination of motor recruitment patterns for PF then TA activation during dynamic UE/LE movements in all postures while maintaining diaphragmatic breathing pattern 2) Pt will report absent urinary leakage with bathroom trigger. 3) Pt will report ability to calm bathroom trigger at least 80% of the time without rushing. 4) Pt will demonstrate PFQ subscale score < 26 for improved quality of life. Treatment Plan/Direct Interventions Gait Training,Joint Mobilization,Manual Therapy, Neuromuscular Re-ed,Self-Care/ Home Management,Therapeutic Activities,Therapeutic Exercises Frequency/Duration 1x/wk x 10 visits in 90 days Patient Will Be Discharged From Therapy Skills [facility],Independent w/ HEP Evaluation Billing Untimed Code Treatment Minutes 30 Complexity Low Certification Information Initial Certification Date 03/12/24 Ending Certification Date 06/10/24 Provider Signature Required Yes Provider Signature Shows Agreement With POC & Medical Necessity Physician NPI Number Write NPI# Here Physician Comment/Change : Physician Signature & Date Requested Please Sign/Date Here
== END 2024-09-19 23:59 | disposition home or self-care (01) ==
PROVIDERS: PCP Internal Medicine; Visit Provider Internal Medicine
DX: N39.3 Stress incontinence (female) (male) (principal); Z51.89 Encounter for other specified aftercare
CPT/HCPCS: 97110; 97112; 97140; 97161; 97535

== ENCOUNTER 2025-05-02 07:54 | Outpatient (CLI) | payer MEDICARE, BC, SELFPAY | END 2025-05-02 07:55 | disposition home or self-care (01) | LOC: NFLDREF 05-04 23:02 | PROVIDERS: PCP Internal Medicine; Referring Provider Internal Medicine; Visit Provider Internal Medicine | DX: E78.5 Hyperlipidemia, unspecified (principal); M85.80 Other specified disorders of bone density and structure, unspecified site | CPT/HCPCS: 80061; 82306 ==

== ENCOUNTER 2025-05-10 13:29 | Outpatient (CLI) | payer MEDICARE, BC, SELFPAY ==
--- NOTE | 2025-05-10 13:40 | CRLHL7_ITS ---
For Patients: As a result of the Cures Act, medical imaging exams and procedure reports are released immediately into your electronic medical record. You may view this report before your referring provider. If you have questions, please contact your health care provider. COMPARISON: 05/08/2024, 02/17/2023, 02/16/2022 TECHNIQUE: Digital mammogram in CC and MLO projections including computer-aided detection (CAD) and tomosynthesis. BREAST COMPOSITION: There are scattered areas of fibroglandular density. FINDINGS: No suspicious findings. ASSESSMENT: BI-RADS 2 Benign RECOMMENDATION: Annual screening mammogram. A lay language report of this examination will be provided to the patient. Dictated by: Jean Lopez MD @ 05/13/2025 09:12:22 (Electronically Signed)
== END 2025-05-10 13:30 | disposition home or self-care (01) ==
LOC: MAMMO 13:29
PROVIDERS: PCP Internal Medicine; Visit Provider Internal Medicine
DX: Z12.31 Encounter for screening mammogram for malignant neoplasm of breast (principal)
CPT/HCPCS: 77063; 77067

== ENCOUNTER 2025-05-21 10:31 | Outpatient (CLI) | payer MEDICARE, BC, SELFPAY | END 2025-05-21 10:32 | disposition home or self-care (01) | LOC: NFLDREF 05-27 16:16 | PROVIDERS: PCP Internal Medicine; Referring Provider Internal Medicine; Visit Provider Internal Medicine | DX: R30.0 Dysuria (principal); N30.90 Cystitis, unspecified without hematuria; N30.00 Acute cystitis without hematuria | CPT/HCPCS: 87086 ==